=== PATIENT | male | born 1985 ===

== ENCOUNTER → 2020-02-19 08:42 | Outpatient (BNVA) | payer MEDICAID, SELFPAY | PROVIDERS: PCP Internal Medicine; Referring Provider Internal Medicine; Visit Provider Internal Medicine | DX: Z76.89 Persons encountering health services in other specified circumstances (principal) ==

== ENCOUNTER 2020-02-21 10:27 | Outpatient (REF) | payer MEDICAID, SELFPAY ==
[2020-02-21 13:40] LABS: Estimated Average Glucose 192 mg/dL; Hemoglobin A1c % 8.3 %
[2020-02-21 14:35] LABS: Alanine Aminotransferase 15 U/L (0-40); Albumin Level 4.3 g/dL (3.5-5.0); Alkaline Phosphatase 57 U/L (39-117); Anion Gap 11 (12-20); Aspartate Amino Transferase 10 U/L (5-37); Bilirubin Total 0.5 mg/dL (0.0-1.0); Blood Urea Nitrogen 21 mg/dL (9-16); Calcium 9.1 mg/dL (8.4-10.2); Carbon Dioxide 30 mmol/L (22-29); Chloride 103 mmol/L (96-108); Estimated Glomerular Filt Rate > 60; Glucose Random 186 mg/dL (60-115); Potassium 4.9 mmol/l (3.3-5.1); Sodium 139 mmol/L (135-145); Total Protein 6.7 g/dL (6.5-8.0)
== END 2020-02-21 10:28 | disposition home or self-care (01) ==
LOC: HO.10HDL 10:27
PROVIDERS: Visit Provider Internal Medicine
DX: E55.9 Vitamin D deficiency, unspecified (principal); E11.65 Type 2 diabetes mellitus with hyperglycemia; R79.89 Other specified abnormal findings of blood chemistry
CPT/HCPCS: 80053; 82306; 83036

== ENCOUNTER → 2020-07-18 13:06 | Outpatient (BNVA) | payer MEDICAID, SELFPAY | PROVIDERS: PCP Internal Medicine; Visit Provider Internal Medicine ==

== ENCOUNTER 2020-11-04 07:46 | Emergency (ER) | payer MEDICAID, SELFPAY ==
--- NOTE | ~2020-11-04 | XR_ITS ---
EXAMINATION: XR RIBS, RIGHT CLINICAL INFORMATION: Pain COMPARISON: None TECHNIQUE: 3 views of the right ribs and one view of the chest were obtained. FINDINGS: Lungs are clear. No consolidation, pneumothorax, or pleural effusion. The cardiomediastinal silhouette and pulmonary vasculature are normal. Osseous structures are unremarkable. Ribs are intact. No fractures are identified. XR/XR ribs RT min 3V w CXR1V IMPRESSION: Unremarkable examination.
[2020-11-04 07:52] VITALS: BP 120/67; PULSE 96; RESP 16; TEMP 36.5; O2SAT 100; BMI 33.9
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
[2020-11-04] MEDS: Cyclobenzaprine HCl 10 MG TABLET PO (08:47)
[2020-11-04] MEDS: Ibuprofen 600 MG TABLET PO (08:47)
[2020-11-04 08:55] LABS: COVID-19 Test Negative (Negative); IDNOW Serial# 08D9AD1C
[2020-11-04 09:27] VITALS: BP 122/67; PULSE 96; RESP 16; TEMP 36.5; O2SAT 100
== END 2020-11-04 09:28 | disposition home or self-care (01) ==
PROVIDERS: Emergency Provider Emergency Medicine; PCP Internal Medicine
DX: S50.312A Abrasion of left elbow, initial encounter (principal); S29.011A Strain of muscle and tendon of front wall of thorax, initial encounter; X50.1XXA Overexertion from prolonged static or awkward postures, initial encounter; I10 Essential (primary) hypertension; E11.9 Type 2 diabetes mellitus without complications; Z20.822 Contact with and (suspected) exposure to COVID-19; Y93.F9 Activity, other caregiving; Y92.9 Unspecified place or not applicable; Y99.9 Unspecified external cause status; Z79.4 Long term (current) use of insulin; Z79.899 Other long term (current) drug therapy
CPT/HCPCS: 36415; 71101; 87635; 99283; 99284

== ENCOUNTER 2020-12-26 15:05 | Emergency (ER) | payer OTHER, SELFPAY ==
--- NOTE | ~2020-12-26 | XR_ITS ---
EXAMINATION: XR SHOULDER, RIGHT CLINICAL INFORMATION: Pain status post trauma COMPARISON: None TECHNIQUE: Three views of the right shoulder. FINDINGS: There is no evidence of acute fracture or dislocation of the right shoulder. No evidence of calcific tendinitis. There is inferior acromial spur present. Glenohumeral joint unremarkable. XR/XR shoulder RT min 2V IMPRESSION: No significant bony abnormality of the right shoulder identified.
[2020-12-26 15:31] VITALS: BP 129/96; PULSE 100; RESP 18; TEMP 36.8; O2SAT 100; BMI 34.2
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
== END 2020-12-26 17:05 | disposition home or self-care (01) ==
PROVIDERS: Emergency Provider Emergency Medicine Emergency Medical Services; PCP Internal Medicine
DX: S46.911A Strain of unspecified muscle, fascia and tendon at shoulder and upper arm level, right arm, initial encounter (principal); V43.52XA Car driver injured in collision with other type car in traffic accident, initial encounter; M54.50 Low back pain, unspecified; Y93.9 Activity, unspecified; Y92.410 Unspecified street and highway as the place of occurrence of the external cause; Y99.9 Unspecified external cause status
CPT/HCPCS: 73030; 99283

== ENCOUNTER 2021-05-01 09:28 | Emergency (ER) | payer MEDICAID, SELFPAY ==
--- NOTE | ~2021-05-01 | XR_ITS ---
EXAMINATION: XR THORACIC SPINE CLINICAL INFORMATION: Fall COMPARISON: None TECHNIQUE: 3 views of the thoracic spine were obtained. FINDINGS: There is no fracture or bone destruction seen and the vertebral alignment is normal. There is no disc space narrowing. There is no abnormality of the paraspinal soft tissues. XR/XR thoracic spine 3V IMPRESSION: No fracture.
--- NOTE | ~2021-05-01 | XR_ITS ---
EXAMINATION: XR LUMBOSACRAL SPINE CLINICAL INFORMATION: Fall COMPARISON: None TECHNIQUE: Three views of the lumbosacral spine. FINDINGS: The vertebral bodies and posterior elements are normal. The disc spaces are preserved and the vertebral alignment is normal. The paraspinal soft tissues are normal. XR/XR lumbar spine 2-3V IMPRESSION: No fracture.
[2021-05-01 10:12] VITALS: BP 121/94; PULSE 104; RESP 18; TEMP 36.3; O2SAT 96; BMI 33.2
--- NOTE | 2021-05-01 11:08 | ED.FALL ---
HPI - Fall General Chief Complaint: Fall Stated Complaint: fall hit back of head Time Seen by Provider: 05/01/21 10:57 Source: patient Mode of arrival: ambulatory Limitations: no limitations History of Present Illness MD complaint: fall Onset (ago): hour(s) (830am today) Fall from: standing Fall witnessed: no Place fall occurred: home Loss of consciousness: none Prolonged down time: no Symptoms prior to fall: none Context: tripped/slipped (due to black ice) Location of injury: head (back of head) and back (tailbone) Severity: moderate Quality: aching Associated symptoms (after fall): other (low back pain) Related Data Home Medications Medication Instructions Recorded Confirmed atorvastatin 40 mg tablet 40 mg PO BEDTIME 02/19/20 07/18/20 insulin needles (disposable) 30 X #1 02/19/20 07/18/20 3/4 lancets 28 gauge (FreeStyle #100 ea 02/19/20 07/18/20 Lancets) lisinopril 10 mg tablet 10 mg PO DAILY 02/19/20 07/18/20 Previous Rx's Medication Instructions Recorded empagliflozin 25 mg tablet 25 mg PO DAILY 30 Days #30 tab 06/10/20 (Jardiance) blood-glucose meter (FreeStyle #1 ea 07/18/20 Lite Meter) semaglutide 1 mg/dose (4 mg/3 mL) 1 mg (0.75 mL) SUBCUT QWEEK 30 09/11/20 subcutaneous pen injector (Ozempic) Days #3.75 ml cyclobenzaprine 10 mg tablet 10 mg PO TID PRN #14 tab 11/04/20 lidocaine 4 % topical patch 1 patch TOPICAL DAILY PRN #10 ea 11/04/20 ibuprofen 600 mg tablet 600 mg PO TID PRN #30 tab 12/26/20 methocarbamol 750 mg tablet 750 mg PO Q8H PRN #14 tab 12/26/20 metformin 500 mg tablet,extended 1,000 mg PO BID #120 tab 01/27/21 release 24 hr atorvastatin 40 mg tablet 40 mg PO DAILY 30 Days #30 tab 02/12/21 pioglitazone 15 mg tablet 15 mg PO DAILY #90 tab 04/23/21 cyclobenzaprine 10 mg tablet 10 mg PO TID PRN #14 tab 05/01/21 ibuprofen 600 mg tablet 600 mg PO Q6H PRN #30 tab 05/01/21 lidocaine 4 % topical patch 1 patch TOPICAL DAILY PRN #10 ea 05/01/21 Allergies Allergy/AdvReac Type Severity Reaction Status Date / Time Proventil Allergy Unknown rash Uncoded 07/18/20 14:05 Review of Systems Review of Systems: Constitutional : No Weight loss, No Fever, No Chills, ENT/Mouth : No Hearing loss, No Ear Pain, No Nasal Congestion, No Sinus Pain, No Hoarseness, No sore throat, No Rhinorrhea, No Swallowing Difficulty Cardiovascular : No Chest Pain, No SOB Respiratory : No Cough, No Dyspnea Gastrointestinal : No Nausea, No Vomiting, No Diarrhea, No abdominal Pain, No Hematochezia, No Melena Genitourinary : No Dysuria, No Urinary Frequency, No Hematuria, No Urinary Incontinence, Musculoskeletal : positive back pain Skin : No Skin Lesions, No rash Neuro : No Weakness, No Numbness, No Paresthesias, no loss of bowel or bladder incontinence, no saddle anesthesia, pos headache PMFSH Past Medical History Attestation statement: The following information was validated with the patient. Medical History Diabetes type 2, uncontrolled HLD (hyperlipidemia) HTN (hypertension) T2DM (type 2 diabetes mellitus) Vitamin D deficiency Surgical History No pertinent past surgical history Family History Family History Father No problems noted. Mother Diabetes Social History Social History Alcohol intake: never Patient Tobacco Use Status: Never used Tobacco Use of substances other than those prescribed or required for medical reasons: No Advance Directives: No Advance Directives Information Provided: Yes Physical Exam Vital Signs: Vital Signs: Last Vital Signs Temp 97.4 F 05/01/21 10:12 Pulse 104 H 05/01/21 10:12 Resp 18 05/01/21 10:12 BP 121/94 H 05/01/21 10:12 Pulse Ox 96 05/01/21 10:12 BMI result Body Mass Index 33.2 Appearance: Alert. Oriented X3. No acute distress. Eyes: Pupils equal, round and reactive to light. ENT: Pharynx normal. small abrasion to posterior scalp but no crepitus no deformity no sig ttp no contusion Neck: Normal inspection. Neck supple. no midline ttp CVS: Normal heart rate and rhythm. Pulses normal. Respiratory: No respiratory distress. Breath sounds normal. Abdomen: Soft and nontender. Back: some ttp along paraspinals no step offs noted Skin: Skin warm and dry. Normal skin color. Normal skin turgor. Extremities: No lower extremity edema. No calf ttp Neuro: Oriented X 3. No motor deficit. No sensory deficit. MDM - Fall MDM Narrative Medical decision making narrative: 35 yo male with hx of HTN, HLD, DM had mechanical fall this AM hitting back of head but no LOC, GCS 15, pupils normal, no vomiting doubt ICH or concussion at this time. He is c/o low and mid back pain will obtain xrays - NV intact dispo per results and findings. Discharge Plan Discharge Clinical Impression: Strain of thoracic back region, Lumbar strain Patient Disposition: Home, Self-Care Instructions: Low Back Strain (ED), Thoracic Back Strain (ED) Additional Instructions: return to ED for any worsening symptoms or concerns xrays negative for acute fracture Prescriptions: New cyclobenzaprine 10 mg tablet 10 mg PO TID PRN (Reason: muscle spasm) Qty: 14 0RF lidocaine 4 % adhesive patch,medicated 1 patch topical DAILY PRN (Reason: pain) Qty: 10 0RF Rx Instructions: may leave on for up to 12 hrs ibuprofen 600 mg tablet 600 mg PO Q6H PRN (Reason: pain) Qty: 30 0RF No Action Jardiance 25 mg tablet 25 mg PO DAILY 30 Days Qty: 30 11RF Ozempic 1 mg/dose (4 mg/3 mL) pen injector 1 mg subcut QWEEK 30 Days Qty: 3.75 11RF metformin 500 mg tablet extended release 24 hr 1,000 mg PO BID Qty: 120 4RF atorvastatin 40 mg tablet 40 mg PO DAILY 30 Days Qty: 30 11RF pioglitazone 15 mg tablet 15 mg PO DAILY Qty: 90 1RF cyclobenzaprine 10 mg tablet 10 mg PO TID PRN (Reason: muscle spasm) Qty: 14 0RF lidocaine 4 % adhesive patch,medicated 1 patch topical DAILY PRN (Reason: pain) Qty: 10 0RF Rx Instructions: may leave on for up to 12 hrs methocarbamol 750 mg tablet 750 mg PO Q8H PRN (Reason: muscle spasm) Qty: 14 0RF ibuprofen 600 mg tablet 600 mg PO TID PRN (Reason: pain) Qty: 30 0RF lisinopril 10 mg tablet 10 mg PO DAILY 0RF atorvastatin 40 mg tablet 40 mg PO BEDTIME 0RF (DME) insulin needles (disposable) 30 X 3/4 needle See Rx Instructions .ROUTE .MEDSUPPLY Qty: 1 0RF Rx Instructions: As directed (DME) lancets [FreeStyle Lancets] 28 gauge misc See Rx Instructions .ROUTE .MEDSUPPLY Qty: 100 0RF Rx Instructions: As directed (DME) blood-glucose meter [FreeStyle Lite Meter] Kit See Rx Instructions .ROUTE .MEDSUPPLY Qty: 1 0RF Rx Instructions: As directed Referrals: Laina Byrne MD [Primary Care Provider] - 2 days (if not better) Stand Alone Forms: Work/School Release
--- NOTE | 2021-05-01 11:53 | PC.NURSE ---
a&o, no sob or chest pain. Pt seen by provider, pt taken to x-ray and medicated per mar for back pain.
[2021-05-01 12:00] VITALS: BP 132/95; RESP 16
[2021-05-01] MEDS: Cyclobenzaprine HCl 10 MG TABLET PO (12:04)
[2021-05-01] MEDS: Ibuprofen 600 MG TABLET PO (12:04)
== END 2021-05-01 13:17 | disposition home or self-care (01) ==
PROVIDERS: Emergency Provider Emergency Medicine; PCP Internal Medicine
DX: S39.012A Strain of muscle, fascia and tendon of lower back, initial encounter (principal); S29.012A Strain of muscle and tendon of back wall of thorax, initial encounter; W00.0XXA Fall on same level due to ice and snow, initial encounter; Y93.01 Activity, walking, marching and hiking; Y92.014 Private driveway to single-family (private) house as the place of occurrence of the external cause; Y99.9 Unspecified external cause status
CPT/HCPCS: 72072; 72100; 99283; 99284

== ENCOUNTER 2021-05-27 14:43 | Outpatient (REF) | payer MEDICAID, SELFPAY ==
[2021-05-27 16:11] LABS: Cholesterol 130 mg/dL; HDL Cholesterol 30 mg/dL; LDL Cholesterol Calculated 78 mg/dl; Triglycerides 110 mg/dL
[2021-05-29 07:47] LABS: LDL Cholesterol Direct 74 mg/dL (<100)
== END 2021-05-27 14:44 | disposition home or self-care (01) ==
LOC: HO.LAB 14:43
PROVIDERS: PCP Internal Medicine; Visit Provider Internal Medicine
DX: E11.65 Type 2 diabetes mellitus with hyperglycemia (principal)
CPT/HCPCS: 36415; 80061; 83721

== ENCOUNTER → 2021-05-28 08:04 | Outpatient (BNVA) | payer MEDICAID, SELFPAY | PROVIDERS: PCP Internal Medicine; Visit Provider Internal Medicine | DX: E78.5 Hyperlipidemia, unspecified (principal); E55.9 Vitamin D deficiency, unspecified; I10 Essential (primary) hypertension; Z79.4 Long term (current) use of insulin; Z79.84 Long term (current) use of oral hypoglycemic drugs | CPT/HCPCS: 82947; 83036; 99212 ==

== ENCOUNTER 2021-08-20 10:22 | Outpatient (REF) | payer MEDICAID, SELFPAY ==
[2021-08-20 14:13] LABS: Estimated Average Glucose 226 mg/dL; Hemoglobin A1c % 9.5 %
[2021-08-20 14:24] LABS: Alanine Aminotransferase 26 U/L (0-40); Albumin Level 3.9 g/dL (3.5-5.0); Alkaline Phosphatase 67 U/L (39-117); Anion Gap 14 (12-20); Aspartate Amino Transferase 12 U/L (5-37); Bilirubin Total 0.3 mg/dL (0.0-1.0); Blood Urea Nitrogen 25 mg/dL (9-16); Calcium 9.1 mg/dL (8.4-10.2); Carbon Dioxide 27 mmol/L (22-29); Chloride 104 mmol/L (96-108); Cholesterol 158 mg/dL; Estimated Glomerular Filt Rate > 60; Glucose Random 208 mg/dL (60-115); HDL Cholesterol 42 mg/dL; LDL Cholesterol Calculated 89 mg/dl; Potassium 4.6 mmol/L (3.3-5.1); Sodium 140 mmol/L (135-145); Total Protein 6.3 g/dL (6.5-8.0); Triglycerides 136 mg/dL
[2021-08-20 14:42] LABS: Creatinine Urine 52.44 mg/dL; Microalbum/Creatinine Ratio Ur 747.5 ug/mg cr
[2021-08-20 14:47] LABS: Vitamin D 25-OH Total 22.9 ng/mL (>30)
[2021-08-21 17:23] LABS: LDL Cholesterol Direct 83 mg/dL (<100)
== END 2021-08-20 10:23 | disposition home or self-care (01) ==
LOC: HO.10HDL 10:22
PROVIDERS: Visit Provider Internal Medicine
DX: E55.9 Vitamin D deficiency, unspecified (principal); E11.65 Type 2 diabetes mellitus with hyperglycemia
CPT/HCPCS: 36415; 80053; 80061; 82043; 82306; 83036; 83721

== ENCOUNTER → 2021-09-30 13:11 | Outpatient (BNVA) | payer MEDICAID, SELFPAY | PROVIDERS: PCP Internal Medicine; Visit Provider Registered Nurse Diabetes Educator | DX: E11.65 Type 2 diabetes mellitus with hyperglycemia (principal) | CPT/HCPCS: 99211 ==

== ENCOUNTER 2022-05-21 22:48 | Emergency (ER) | payer MEDICAID, SELFPAY ==
[2022-05-21 23:26] VITALS: BP 181/111; PULSE 94; RESP 18; TEMP 36.8; O2SAT 98; BMI 17.6
[2022-05-22 00:05] LABS: Hematocrit 35.4 % (42.0-52.0); Hemoglobin 12.1 g/dl (14.0-18.0); Mean Corpuscular HGB Conc 34.2 g/dl (31.0-36.0); Mean Platelet Volume 9.6 fL (9.4-12.4); Platelet Count 206 X10*3/uL (160-400); Red Blood Count 4.66 X10*6/uL (4.60-5.80); Red Cell Distribution Width 12.7 % (11.0-16.0); White Blood Count 10.1 X10*3/uL (4.8-10.8)
[2022-05-22 00:12] LABS: D Dimer High Sensitivity 180 NG/ML
[2022-05-22 00:30] LABS: Alanine Aminotransferase 45 U/L (0-40); Albumin Level 3.1 g/dL (3.5-5.0); Alkaline Phosphatase 64 U/L (39-117); Anion Gap 13 (12-20); Aspartate Amino Transferase 25 U/L (5-37); Bilirubin Total 0.5 mg/dL (0.0-1.0); Blood Urea Nitrogen 18 mg/dL (9-16); Calcium 8.6 mg/dL (8.4-10.2); Carbon Dioxide 26 mmol/L (22-29); Chloride 104 mmol/L (96-108); Creatinine Clr Calc Pharmacy 73.7; Estimated Glomerular Filt Rate > 60; Glucose Random 357 mg/dL (60-115); Sodium 139 mmol/L (135-145); Total Protein 5.2 g/dL (6.5-8.0)
--- NOTE | 2022-05-22 01:11 | ED.GENADULT ---
HPI - General Adult General Chief complaint: Extremity Injury, Lower Stated complaint: left lowered leg swollen Time Seen by Provider: 05/22/22 01:00 Source: patient Mode of arrival: ambulatory Limitations: no limitations History of Present Illness HPI narrative: 36-year-old male history of diabetes mellitus controlled with insulin came in for evaluation of possible left leg infection, patient did not take his night time Lantus insulin and found to have hyperglycemia. Patient was walking today felt some pain in the left leg notice some new onset rash and redness on the hollis of the left leg. No fever, no chills, no SOB, CP. No history DVT. Related Data Home Medications Medication Instructions Recorded Confirmed insulin needles (disposable) 30 X ##1 02/19/20 08/21/21 3/4 lancets 28 gauge (FreeStyle #100 ea 02/19/20 08/21/21 Lancets) lisinopril 10 mg tablet 10 mg PO DAILY 02/19/20 08/21/21 Previous Rx's Medication Instructions Recorded blood-glucose meter (FreeStyle #1 ea 07/18/20 Lite Meter kit) methocarbamol 750 mg tablet 750 mg PO Q8H PRN muscle spasm #14 12/26/20 tabs atorvastatin 40 mg tablet 40 mg PO DAILY 30 days #30 tabs 02/12/21 cyclobenzaprine 10 mg tablet 10 mg PO TID PRN muscle spasm #14 05/01/21 tabs ibuprofen 600 mg tablet 600 mg PO Q6H PRN pain #30 tabs 05/01/21 lidocaine 4 % topical patch 1 patch topical DAILY PRN pain #10 05/01/21 ea insulin glargine 100 unit/mL (3 10 unit (0.1 mL) subcut QPM 30 05/28/21 mL) subcutaneous pen (Lant #3 mL Solostar U-100 Insulin) pen needle, diabetic 32 gauge x #50 ea 05/28/2103/04 (BD Ultra-Fine Micro Pen Needle) empagliflozin 25 mg tablet 25 mg PO DAILY 30 days #30 tabs 08/18/21 (Jardiance) cholecalciferol (vitamin D3) 50 50 mcg PO DAILY 30 days #30 caps 09/17/21 mcg (2,000 unit) capsule pioglitazone 15 mg tablet 15 mg PO DAILY #90 tabs 11/10/21 dulaglutide 1.5 mg/0.5 mL 1.5 mg (0.5 mL) subcut QWEEK 30 02/16/22 subcutaneous pen injector days #2.5 mL (Trulicity) metformin 500 mg tablet,extended 1,000 mg PO BID 90 days #360 tabs 03/16/22 release 24 hr doxycycline hyclate 100 mg tablet 100 mg PO BID #14 tabs 05/22/22 Allergies Allergy/AdvReac Type Severity Reaction Status Date / Time Proventil Allergy Unknown rash Uncoded 08/21/21 08:15 Review of Systems Review of Systems: All other systems are reviewed and are negative Constitutional: Reports as per HPI and Reports no additional constitutional complaints Eyes: Reports as per HPI and Reports no additional eye complaints Reports system reviewed and no additional complaints, except as documented Cardiovascular: Reports as per HPI and Reports no additional cardiovascular complaints Respiratory: Reports as per HPI and Reports no additional respiratory complaints Gastrointestinal: Reports as per HPI and Reports no additional gastrointestinal complaints Genitourinary: Reports no additional female genitourinary complaints Musculoskeletal: Reports no additional musculoskeletal complaints Skin/Breast: Reports system reviewed and no additional complaints, except as docu Psychiatric: Reports no additional psychiatric complaints Endocrine: Reports no additional endocrine complaints Hematologic/Lymphatic: Reports no additional hematologic/lymphatic complaints Allergic/Immunologic: Reports no additional allergic/immunologic complaints Reports system reviewed and no additional complaints, except as documented and Reports Abnormal speech present [facility] Past Medical History Medical History Diabetes type 2, uncontrolled HLD (hyperlipidemia) HTN (hypertension) T2DM (type 2 diabetes mellitus) Vitamin D deficiency Surgical History Hx of circumcision Hx of shoulder surgery Family History Family History Father No problems noted. Mother Diabetes Social History Social History Alcohol intake: never Patient Tobacco Use Status: Never used Tobacco Physical Exam ED Vital Signs: Vital Signs - 24 hr 05/21/22 23:26 Temperature 98.3 F Pulse Rate 94 Respiratory Rate 18 Blood Pressure 181/111 H Pulse Oximetry 98 Oxygen Delivery Method Room Air BMI result Body Mass Index 17.6 Vital signs have been reviewed as appeared to be correct. Blood pressure normal. Heart rate normal. Respiration rate normal. Temperature normal. Oxygen saturation normal. Appearance: Alert. Oriented X3. No acute distress. Head: Normal external exam. Normocephalic. Atraumatic. No Perkins signs noted. No raccoon eyes noted Eyes: PERRLA. EOMI. Conjunctiva and sclera normal. Eyelids normal. ENT: TM's Normal. Pharynx normal. Uvula midline. Moist mucous membranes. No trismus noted. No drooling noted. No muffled voice noted. Neck: Normal inspection. Neck supple. FROM. No adenopathy. Thyroid Normal. No meningeal signs. No neck mass noted. CVS: Normal heart rate and rhythm. Heart sound normal. No murmurs noted. Pulses normal throughout. Respiratory: No respiratory distress. Painless inspiration. Breath sounds normal. No wheezes/rales/rhonchi noted. Chest nontender. No accessory muscle usage noted or decreased air movement noted. Abdomen: Soft and nontender. Bowel sounds normal in all 4 quadrants. No distention noted. No organomegaly noted. No visible injury noted. Back: No CVA tenderness. Full range of motion noted. Skin: Skin warm and dry. Normal skin color. Normal skin turgor. No rashes/lesions/lacerations noted. Extremities: Left hlolis small area red discoloration, no hotness, no tenderness, no calf tenderness. Neuro: Oriented X 3. Cranial nerve exam: II-XII are grossly intact No motor deficit. No sensory deficit. Reflexes normal. Course Course Course Narrative: 36-year-old male history of diabetes mellitus found to have hyperglycemia due to missing his afternoon dose of Lantus. BS was improved with IV fluid and 10 units of insulin IV. I will start the patient on empirical doxycycline for possible left lower extremity cellulitis. D-dimer is negative and patient at low risk for DVT/PE ultrasound is not available in this facility tonight patient was instructed to return tomorrow if the swelling or pain is getting worse. Medical Decision Making Differential Diagnosis Differential Diagnoses: The differential diagnosis associated with the presentation includes (Hyperglycemia, DKA, left lower extremity cellulitis, DVT.) Lab Data MDM Lab Attestation statement: I reviewed the patient's lab results. 05/22/22 00:00 05/22/22 00:00 Labs: Lab Results 05/22/22 05/22/22 05/22/22 Range/Units 00:00 00:00 00:00 WBC 10.1 (4.8-10.8) X10*3/uL RBC 4.66 (4.60-5.80) X10*6/uL Hgb 12.1 L (14.0-18.0) g/dl Hct 35.4 L (42.0-52.0) % MCV 76.0 L (80.0-98.0) fL MCH 26.0 L (27.0-33.0) pg MCHC 34.2 (31.0-36.0) g/dl RDW 12.7 (11.0-16.0) % Plt Count 206 (160-400) X10*3/uL MPV 9.6 (9.4-12.4) fL Absolute Nucleated RBC 0.000 (0.0-0.012) X10*3/uL Nucleated RBC % (auto) 0.0 (0.0-0.2) /100WBC D-Dimer High Sensitivty 180 NG/ML Sodium 139 (135-145) mmol/L Potassium 4.0 (3.3-5.1) mmol/L Chloride 104 (96-108) mmol/L Carbon Dioxide 26 (22-29) mmol/L Anion Gap 13 (12-20) BUN 18 H (9-16) mg/dL Creatinine 1.17 (0.5-1.4) mg/dL Estim Creat Clear Calc 73.7 Estimated GFR > 60 Random Glucose 357 H* (60-115) mg/dL Calcium 8.6 (8.4-10.2) mg/dL Total Bilirubin 0.5 (0.0-1.0) mg/dL AST 25 (5-37) U/L ALT 45 H (0-40) U/L Alkaline Phosphatase 64 (39-117) U/L Total Protein 5.2 L (6.5-8.0) g/dL Albumin 3.1 L (3.5-5.0) g/dL Discharge Plan Discharge Clinical Impression: Hyperglycemia due to diabetes mellitus, Cellulitis of left leg Patient Disposition: Home, Self-Care Instructions: Cellulitis (ED) Prescriptions: New doxycycline hyclate 100 mg tablet 100 mg PO BID Qty: 14 0RF No Action atorvastatin 40 mg tablet 40 mg PO DAILY 30 Days Qty: 30 11RF Jardiance 25 mg tablet 25 mg PO DAILY 30 Days Qty: 30 11RF cholecalciferol (vitamin D3) 50 mcg (2,000 unit) capsule 50 mcg PO DAILY 30 Days Qty: 30 11RF pioglitazone 15 mg tablet 15 mg PO DAILY Qty: 90 6RF Trulicity 1.5 mg/0.5 mL pen injector 1.5 mg subcut QWEEK 30 Days Qty: 2.5 11RF metformin 500 mg tablet extended release 24 hr 1,000 mg PO BID 90 Days Qty: 360 1RF cyclobenzaprine 10 mg tablet 10 mg PO TID PRN (Reason: muscle spasm) Qty: 14 0RF lidocaine 4 % adhesive patch,medicated 1 patch topical DAILY PRN (Reason: pain) Qty: 10 0RF Rx Instructions: may leave on for up to 12 hrs ibuprofen 600 mg tablet 600 mg PO Q6H PRN (Reason: pain) Qty: 30 0RF methocarbamol 750 mg tablet 750 mg PO Q8H PRN (Reason: muscle spasm) Qty: 14 0RF Lantus Solostar U-100 Insulin 100 unit/mL (3 mL) insulin pen 10 unit subcut QPM 30 Days Qty: 3 11RF (DME) pen needle, diabetic [BD Ultra-Fine Micro Pen Needle] 32 gauge x 1/4 needle See Rx Instructions .ROUTE .MEDSUPPLY Qty: 50 11RF Rx Instructions: 1x daily lisinopril 10 mg tablet 10 mg PO DAILY (DME) insulin needles (disposable) 30 X 3/4 needle See Rx Instructions .ROUTE .MEDSUPPLY Qty: 1 Rx Instructions: As directed (DME) lancets [FreeStyle Lancets] 28 gauge misc See Rx Instructions .ROUTE .MEDSUPPLY Qty: 100 Rx Instructions: As directed (DME) blood-glucose meter [FreeStyle Lite Meter] Kit See Rx Instructions .ROUTE .MEDSUPPLY Qty: 1 0RF Rx Instructions: As directed Referrals: Laina Byrne MD [Primary Care Provider] -
[2022-05-22] MEDS: Doxycycline Monohydrate 100 MG CAPSULE PO (01:24)
[2022-05-22] MEDS: 0.9 % Sodium Chloride 1,000 ML 999 ML IV (01:24)
[2022-05-22] MEDS: Insulin Regular, Human 100 UNIT/ML 3 ML VIAL 10 UNIT IVPUSH (01:24)
[2022-05-22 01:48] LABS: Glucose, Whole Blood 197 mg/dL (60-115)
[2022-05-22 02:19] VITALS: BP 167/112; PULSE 85; RESP 17; TEMP 36.6; O2SAT 98
[2022-05-22 02:28] LABS: Glucose, Whole Blood 145 mg/dL (60-115)
[2022-05-22] MEDS: lisinopriL 20 MG TABLET PO (02:38)
[2022-05-22] MEDS: cloNIDine HCL 0.1 MG TABLET PO (02:38)
[2022-05-22 03:00] VITALS: BP 164/102
== END 2022-05-22 03:02 | disposition home or self-care (01) ==
PROVIDERS: Emergency Provider Emergency Medicine; PCP Internal Medicine
DX: E11.65 Type 2 diabetes mellitus with hyperglycemia (principal); L03.116 Cellulitis of left lower limb; R60.0 Localized edema; I10 Essential (primary) hypertension; Z79.4 Long term (current) use of insulin; Z79.899 Other long term (current) drug therapy
CPT/HCPCS: 36415; 80053; 82947; 85027; 85379; 96374; 99283; 99284

== ENCOUNTER → 2022-06-08 09:54 | Outpatient (BNVA) | payer OTHER, SELFPAY | PROVIDERS: PCP Internal Medicine; Visit Provider Internal Medicine | DX: E11.65 Type 2 diabetes mellitus with hyperglycemia (principal); E78.5 Hyperlipidemia, unspecified; E66.9 Obesity, unspecified; I10 Essential (primary) hypertension; R80.9 Proteinuria, unspecified; Z68.38 Body mass index [BMI] 38.0-38.9, adult | CPT/HCPCS: 82947; 83036; 99212 ==

== ENCOUNTER 2022-06-08 11:03 | Outpatient (REF) | payer OTHER, SELFPAY ==
[2022-06-08 14:12] LABS: Alanine Aminotransferase 45 U/L (0-40); Albumin Level 3.2 g/dL (3.5-5.0); Alkaline Phosphatase 63 U/L (39-117); Anion Gap 11 (12-20); Aspartate Amino Transferase 28 U/L (5-37); Bilirubin Total 0.5 mg/dL (0.0-1.0); Blood Urea Nitrogen 19 mg/dL (9-16); Calcium 8.3 mg/dL (8.4-10.2); Carbon Dioxide 28 mmol/L (22-29); Chloride 106 mmol/L (96-108); Cholesterol 145 mg/dL; Estimated Glomerular Filt Rate > 60; Glucose Random 202 mg/dL (60-115); HDL Cholesterol 37 mg/dL; LDL Cholesterol Calculated 91 mg/dl; Potassium 4.3 mmol/L (3.3-5.1); Sodium 141 mmol/L (135-145); Total Protein 5.2 g/dL (6.5-8.0); Triglycerides 86 mg/dL
[2022-06-08 14:35] LABS: Vitamin B12 410 pg/mL (200-900)
[2022-06-08 14:38] LABS: Creatinine Urine 43.11 mg/dL; Microalbumin Urine > 2000.0 mg/L
[2022-06-09 20:14] LABS: LDL Cholesterol Direct 85 mg/dL (<100)
== END 2022-06-08 11:04 | disposition home or self-care (01) ==
LOC: HO.10HDL 11:03
PROVIDERS: Visit Provider Internal Medicine
DX: E11.65 Type 2 diabetes mellitus with hyperglycemia (principal)
CPT/HCPCS: 36415; 80053; 80061; 82043; 82607; 83721

== ENCOUNTER 2022-09-28 07:47 | Outpatient (AMB) | payer OTHER, SELFPAY ==
--- NOTE | 2022-09-28 07:47 | A.OFFVIS_ITS ---
Intake Intake Visit Reasons: F/U T2DM, needs 40 min Allergies Proventil Allergy (Unknown, Uncoded 09/28/22 08:02) rash Medication List - Last Reconciled 09/28/22 by Constance Barnes, atorvastatin 40 mg PO DAILY 30 days blood-glucose meter (FreeStyle Lite Meter kit) As directed blood-glucose meter (FreeStyle Lite Meter kit) As directed cholecalciferol (vitamin D3) 50 mcg PO DAILY 30 days cyclobenzaprine 10 mg PO TID PRN empagliflozin (Jardiance) 25 mg PO DAILY 30 days ibuprofen 600 mg PO Q6H PRN insulin degludec (Tresiba FlexTouch U-100 insulin) 18 units (0.18 mL) subcut BEDTIME 30 days insulin needles (disposable) As directed lancets (FreeStyle Lancets) As directed lidocaine 4% 1 patch topical DAILY PRN lisinopril 40 mg PO DAILY 30 days metformin ER 1,000 mg (2 x 500 mg) PO BID 90 days methocarbamol 750 mg PO Q8H PRN pen needle, diabetic (BD Ultra-Fine Micro Pen Needle) 1x daily pioglitazone 15 mg PO DAILY semaglutide (Ozempic) 2 mg (0.75 mL) subcut QWEEK 30 days HPI HPI Comments History of Present Illness Details 37 YO M with PMHx T2DM, HTN, HLD who is seen in F/U for T2DM. Initially diagnosed with T2DM in 2009 during a routine physical exam. Was initially started on treatment with Metformin, began using Insulin approximately 1 year later. Current regimen Metformin 1000 mg PO BID, Ozempic 2.0 mg once a week, Jardiance 25 mg PO daily, Actos 15 mg PO daily and Lantus 18 units qHS. He previously had failed treatment with Glipizide 10 mg PO BID, and after his initial visit with me we stopped his Humalog. Not currently checking sugars. He also did not do labs after his last visit. Most recent A1C: 11.0% 06/08/2022, up from 9.5% 08/20/2021. Reports low sugars occasionally in the distant past, many years ago. Had awareness with lightheadedness, shakiness and diaphoresis. Treats lows with food. Family history of T2DM in Mother and Sister. Has eyes checked yearly, last eye exam 01/2023 per Patient report, does report retinopathy. Has Neuropathy, sees podiatry regularly. Has Charcot foot with fractures. Has Nephropathy, on Lisinopril 20 mg PO daily. UAC 5224.5 05/25/2022. Has HLD. On Atorvastatin 40 mg PO daily. LDL 89 08/20/2021. Denies CAD. Diet: Not following any particular diet. Admits to dietary indiscretions. Has had CDE. Labs: Laboratory Tests 06/08/22 10:18 Hgb A1c (Clinic) 11.0 H PFS Medical History Diabetes type 2, uncontrolled HLD (hyperlipidemia) HTN (hypertension) Microalbuminuria Obesity T2DM (type 2 diabetes mellitus) Vitamin D deficiency Surgical History Hx of circumcision Hx of eye surgery Hx of shoulder surgery Family History Father No problems noted. Mother Diabetes Social History Alcohol intake: never Patient Tobacco Use Status: Never used Tobacco Assessment & Plan Assessment & Plan (1) T2DM (type 2 diabetes mellitus): Code(s): E11.9 - Type 2 diabetes mellitus without complications Qualifiers: Diabetes mellitus care home insulin use: without superintendent terminal use Diabetes mellitus complication status: with hyperglycemia Qualified Code(s): E11.65 - Type 2 diabetes mellitus with hyperglycemia Plan: Patient with T2DM. He has not been checking his sugars at all. I advised him to do labs now, check sugars 3x per day and bring his meter for review. I will call with adjustments. We did review the importance of compliance with his medications, as I do highly suspect noncompliance. He will also F/U with our CDE and discuss CGM. He will then F/U in 3 months time. All of his questions were answered today. He is in agreement with this plan of care. The importance of adherence to prescribed regimen was discussed with the patient including checking finger sticks 3-4 times per day, using medication as prescribed, monitoring for hypoglycemia and treating any episode of hypoglycemia according to the rule of 15's. The signs and symptoms of hypoglycemia were reviewed in detail, as well as the rule of 15's to treat. Proper foot care was also discussed with the patient, and the importance of yearly dilated eye exam. The patient was asked to have copy of eye exam sent to our office for review. I spent 20 minutes in reviewing the record, seeing the patient and documenting in the medical record, including 5 minutes on the phone with the Patient. (2) HLD (hyperlipidemia): Code(s): E78.5 - Hyperlipidemia, unspecified Qualifiers: Hyperlipidemia type: unspecified Qualified Code(s): E78.5 - Hy perlipidemia, unspecified Plan: Remains on Atorvastatin 40 mg PO daily. Will continue. (3) HTN (hypertension): Code(s): I10 - Essential (primary) hypertension Qualifiers: Hypertension type: unspecified Qualified Code(s): I10 - Essential (primary) hypertension Plan: Following with nephrology. (4) Obesity: Code(s): E66.9 - Obesity, unspecified Plan: Now on Ozempic. He was also referred to the medical weight management program. (5) Microalbuminuria: Code(s): R80.9 - Proteinuria, unspecified Plan: Following with Nephrology. Telehealth Telehealth Location of provider rendering services: practice address Location of patient: address on file Patient Identification confirmed using: Name, : Yes Telehealth method: voice only Patient verbally consented to treatment: Yes Patient verbally consented to billing insurance company: Yes Patient informed of any privacy concerns related to visit: Yes Coding Level of Care Code Tele Est Pt Level 3 (47106) Diagnoses T2DM (type 2 diabetes mellitus) E11.65 Diabetes mellitus superintendent terminal insulin use: without care home use Diabetes mellitus complication status: with hyperglycemia HLD (hyperlipidemia) E78.5 Hyperlipidemia type: unspecified HTN (hypertension) I10 Hypertension type: unspecified Obesity E66.9 Microalbuminuria R80.9
== END 2022-09-28 08:24 | disposition home or self-care (01) ==
LOC: HO.ENCR 07:47
PROVIDERS: PCP Internal Medicine; Visit Provider Internal Medicine
DX: E11.65 Type 2 diabetes mellitus with hyperglycemia (principal); E78.5 Hyperlipidemia, unspecified; I10 Essential (primary) hypertension; E66.9 Obesity, unspecified; R80.9 Proteinuria, unspecified
CPT/HCPCS: 99213

== ENCOUNTER → 2022-09-28 07:47 | Outpatient (BNVA) | payer OTHER, SELFPAY | PROVIDERS: PCP Internal Medicine; Visit Provider Internal Medicine ==

== ENCOUNTER 2023-06-04 10:07 | Outpatient (REF) | payer OTHER, SELFPAY ==
[2023-06-04 12:50] LABS: Anion Gap 11 (12-20); Blood Urea Nitrogen 26 mg/dL (9-16); Calcium 8.5 mg/dL (8.4-10.2); Carbon Dioxide 28 mmol/L (22-29); Chloride 109 mmol/L (96-108); Cholesterol 150 mg/dL (<200); Estimated Glomerular Filt Rate > 60; Glucose Random 127 mg/dL (60-115); HDL Cholesterol 35 mg/dL (>40); LDL Cholesterol Calculated 97 mg/dL (<100); Potassium 4.1 mmol/L (3.3-5.1); Sodium 144 mmol/L (135-145); Triglycerides 93 mg/dL (<150)
[2023-06-04 13:25] LABS: Microalbumin Urine > 2000.0 mg/L
== END 2023-06-04 10:08 | disposition home or self-care (01) ==
LOC: HO.LAB 10:07
PROVIDERS: PCP Internal Medicine; Visit Provider Internal Medicine Endocrinology, Diabetes & Metabolism
DX: E11.65 Type 2 diabetes mellitus with hyperglycemia (principal)
CPT/HCPCS: 36415; 80048; 80061; 82043; 82570

== ENCOUNTER 2023-08-30 14:42 | Outpatient (AMB) | payer OTHER, SELFPAY ==
[2023-08-30 14:43] VITALS: BP 130/70; PULSE 95; BMI 39.1
--- NOTE | 2023-08-30 14:43 | MHC.OFFVIS ---
Vital Signs 08/30/23 14:43 Height 6 ft Weight 288 lb 2.307 oz BMI 39.1 BP 130/70 Blood Pressure Location Lt brachial Position Sitting Pulse 95 Pulse Source Pulse Oximeter Intake Visit Reasons: [id number] Intake Note: Patient present today to follow up on Type 2 Diabetes Mellitus. Last seen by Dr. Carmona on 09/28/2022. Last Diabetic Eye exam: 2022 Last Podiatry Visit: June 2023 Random Glucose: 289 mg/dl HgA1C: 10.3% Meter Reading Clerk Required: No Accompanied by: Self / Same As Patient Allergies Proventil Allergy (Unknown, Uncoded 08/30/23 14:51) rash Medication List - Last Reconciled 08/30/23 by Madan Pimentel MD amlodipine 10 mg PO DAILY atorvastatin 40 mg PO DAILY 30 days blood-glucose meter (FreeStyle Lite Meter kit) As directed blood-glucose meter (FreeStyle Lite Meter kit) As directed cholecalciferol (vitamin D3) (Vitamin D3) 50 mcg PO DAILY cyclobenzaprine 10 mg PO TID PRN empagliflozin (Jardiance) 25 mg PO DAILY 30 days ibuprofen 600 mg PO Q6H PRN insulin degludec (Tresiba FlexTouch U-100 insulin) 18 units (0.18 mL) subcut BEDTIME 30 days insulin needles (disposable) As directed lancets (FreeStyle Lancets) As directed lidocaine 4% 1 patch topical DAILY PRN lisinopril 40 mg PO DAILY 30 days metformin ER 1,000 mg (2 x 500 mg) PO BID 90 days methocarbamol 750 mg PO Q8H PRN pen needle, diabetic (BD Ultra-Fine Micro Pen Needle) 1x daily pioglitazone 15 mg PO DAILY semaglutide (Ozempic) 2 mg (0.75 mL) subcut QWEEK HPI Comments Details: 38 YO M with PMHx T2DM, HTN, HLD who is seen in F/U for T2DM. Patient last saw Dr. Carmona on 09/28/2022 Initially diagnosed with T2DM in 2009 during a routine physical exam. Was initially started on treatment with Metformin, began using Insulin approximately 1 year later. Current regimen Metformin 1000 mg PO BID, Ozempic 2.0 mg once a week, Jardiance 25 mg PO daily, Actos 15 mg PO daily and Tresiba 26 units qHS. He previously had failed treatment with Glipizide 10 mg PO BID, and after his initial visit with me we stopped his Humalog. Not currently checking sugars. Did not bring any glucometer or sensor or log book to follow-up visit He also did not do labs after his last visit. Reports no low sugars . Treats lows with food. Family history of T2DM in Mother and Sister. Has eyes checked yearly, last eye exam last yr . Needs to make appt per Patient report, does report retinopathy. Has Neuropathy, sees podiatry regularly. Has Charcot foot with fractures. Has Nephropathy, on Lisinopril 20 mg PO daily. Has HLD. On Atorvastatin 40 mg PO daily. Denies CAD. Diet: Not following any particular diet. Admits to dietary indiscretions. Has had CDE. Labs: Laboratory Tests 06/08/22 10:18 Hgb A1c (Clinic) 11.0 H PFSH Medical History Diabetes type 2, uncontrolled HLD (hyperlipidemia) HTN (hypertension) Microalbuminuria Obesity T2DM (type 2 diabetes mellitus) Vitamin D deficiency Surgical History Hx of circumcision Hx of eye surgery Hx of shoulder surgery Family History Father No problems noted. Mother Diabetes Social History Alcohol intake: never Patient Tobacco Use Status: Never used Tobacco Physical Exam Vital Signs: Last Vital Signs Pulse 95 08/30/23 14:43 BP 130/70 08/30/23 14:43 BMI result Body Mass Index 39.1 Absence of Cushingoid features. Absence of acromegalic features. Neck exam reveals nl size thyroid about 15 gms. No thyroid nodules palpable. No carotid bruits present. Lungs CTA. Heart S1 S2, Reg R/R. No M/R/ G. Skin exam reveals absence of vitiligo or acanthosis nigricans. Abdominal exam reveals Soft NT/ND with NA BS. No organomegaly present. Neck Other: . Extrem Other: Visual exam of foot performed. No ulcerations or open lesions. No onchomycosis, no callouses.Pulses 2 + distally Sensation intact decreased monofilament exam. Vibratory sensation sensed is decreased with 128 Hz tuning fork Results AMB Hemoglobin A1c AMB Hemoglobin A1c 10.3 % Last Edit by [employer] on 08/30/23 15:22 Results Reviewed Results Reviewed: Laboratory Last Values Glucose (Clinic) 289 mg/dL (60-115) H 08/30/23 14:56 Assessment & Plan Assessment & Plan (1) Diabetes type 2, uncontrolled: Code(s): E11.65 - Type 2 diabetes mellitus with hyperglycemia Category: Medical Plan: This is a 38-year-old male with a history of type 2 diabetes being treated with metformin ,Actos, Ozempic and basal insulin with poor glycemic control and known microvascular complications namely neuropathy/ Charcot and microalbuminuria and retinopathy. Plan is that the patient check his point cares pre and post meals or to start sensor should as Viky or Dexcom. I gave him a Viky 3 sample and will try to obtain coverage. Can not make any changes to the regimen today because of lack of data. Will have patient follow up with supervisor tank cleaning. Went over with patient correlation of poor glycemic control to development of progression of complications of diabetes Orders: Orders AMB Hemoglobin A1c Today E11.65 - Type 2 diabetes mellitus with hyperglycemia, Z13.9 - Encounter for screening, unspecified Referrals Diabetes Education Referral E11.65 - Type 2 diabetes mellitus with hyperglycemia Nutrition/Dietitian Referral E11.65 - Type 2 diabetes mellitus with hyperglycemia Medications: New tirzepatide (Mounjaro) 2.5 mg (0.5 mL) subcut QWEEK 4 weeks 2 mL 0RF Discontinued semaglutide (Ozempic) Discontinued Reason: Doctor's Order 2 mg (0.75 mL) subcut QWEEK 3 mL 2RF E11.65 - Type 2 diabetes mellitus with hyperglycemia Coding Level of Care Code Est Pt Level 4 (38841) Diagnoses Diabetes type 2, uncontrolled E11.65
[2023-08-30 14:59] LABS: Glucose, Whole Blood 289 mg/dL (60-115)
== END 2023-08-30 15:25 | disposition home or self-care (01) ==
PROVIDERS: PCP Internal Medicine; Visit Provider Internal Medicine Endocrinology, Diabetes & Metabolism
DX: Z13.9 Encounter for screening, unspecified (principal); E11.65 Type 2 diabetes mellitus with hyperglycemia
CPT/HCPCS: 99214

== ENCOUNTER → 2023-08-30 14:42 | Outpatient (BNVA) | payer OTHER, SELFPAY | PROVIDERS: PCP Internal Medicine; Visit Provider Internal Medicine Endocrinology, Diabetes & Metabolism | DX: E11.65 Type 2 diabetes mellitus with hyperglycemia (principal); Z79.4 Long term (current) use of insulin; Z79.85 Long-term (current) use of injectable non-insulin antidiabetic drugs | CPT/HCPCS: 82947; 83036; 99212 ==

== ENCOUNTER 2023-09-13 13:27 | Outpatient (AMB) | payer OTHER, SELFPAY ==
[2023-09-13 13:33] VITALS: BMI 39.3
--- NOTE | 2023-09-13 13:33 | MHC.AMNUTRGE ---
VS Expanded 09/13/23 13:33 09/16/23 10:45 Height 6 ft 6 ft Weight 290 lb 2.053 oz 290 lb BMI 39.3 39.3 Intake Visit Reasons: T2DM/CONFIRMED Allergies Proventil Allergy (Unknown, Uncoded 08/30/23 14:51) rash Nutrition Presentation Details: Pt present for MNT for T2DM. Pt was referred by Dr. Pimentel, emergency vehicle operations instructor. BS Monitoring Most Recent Diabetes Results: Microalb/Creat Ratio 4338.3 ug/mg cr (<30) H 06/04/23 Cholesterol 150 mg/dL (<200) 06/04/23 HDL Cholesterol 35 mg/dL (>40) L 06/04/23 Triglycerides 93 mg/dL (<150) 06/04/23 Creatinine 1.32 mg/dL (0.5-1.4) 06/04/23 Blood Urea Nitrogen 26 mg/dL (9-16) H 06/04/23 Sodium 144 mmol/L (135-145) 06/04/23 Potassium 4.1 mmol/L (3.3-5.1) 06/04/23 Chloride 109 mmol/L (96-108) H 06/04/23 Carbon Dioxide 28 mmol/L (22-29) 06/04/23 Calcium 8.5 mg/dL (8.4-10.2) 06/04/23 AST 28 U/L (5-37) 06/08/22 ALT 45 U/L (0-40) H 06/08/22 Total Protein 5.2 g/dL (6.5-8.0) L 06/08/22 Albumin 3.2 g/dL (3.5-5.0) L 06/08/22 [id number] Equation Height: 6 ft Weight: 290 lb Resting Metabolic Rate: 2280.06 Calculated Activity Level: Mild Activity Calories Needed to Maintain Weight: 3135.08 Diagnosis Nutrition problem #1: food nutri know defi As related to (etiology) #1: diagnosis As evidenced by (sign/symptom) #1: knowledge deficit of diet [facility] Medical History Diabetes type 2, uncontrolled HLD (hyperlipidemia) HTN (hypertension) Microalbuminuria Obesity T2DM (type 2 diabetes mellitus) Vitamin D deficiency Surgical History Hx of circumcision Hx of eye surgery Hx of shoulder surgery Family History Father No problems noted. Mother Diabetes Social History Alcohol intake: never Patient Tobacco Use Status: Never used Tobacco Assessment & Plan Assessment & Plan (1) Diabetes type 2, uncontrolled: Code(s): E11.65 - Type 2 diabetes mellitus with hyperglycemia Category: Medical Plan: Wt: 132 Kg ( 08/2023 ) Est kcal needs as per MSJ: 3100 (40% carb, 30% protein/fat) Est fluid needs as per 25-30 ml/d: 4000 Est prot per day as per 1 g/kg bw: 132 Recommend fiber intake : 8-10 g per day and gradually increase to 25-28 g per day for women and 35-38 g for men or as tolerated Recommend sodium intake per day : less than 1500 mg less than 2000 mg Educated patient on: ( R = reviewed V = verbalizes understanding N/R = needs review N/A = not applicable Food sources of carbohydrate, adequate serving sizes and its role in various health conditions: R Differences between complex carbohydrates a simple carbohydrates, role of fiber in diet: R V N/R Lean protein sources of foods: R V NR Differences between types of fats and role in diet (mono on saturated fat fatty acids, saturated fatty acids, trans fats): R V N/R Food sources of sodium in salt and healthy modifications for heart health in kidney health: R V R/V Vitamins and minerals: R V N/R Healthy plate method concept: R Physical activity: Benefits a precaution: R V N/R Hypoglycemia protocol (rule of 15): R V N/R Dietary prevention of Hyperglycemia: R Patient Instructions: Work on having 3 balanced meals per day following healthy plate method and reducing total carb at meal to 100 g or less of carbs, per meal 3x a day Reduce carbs as snack to 0-30 g carb 2 a day Coding Level of Care Code Nutr Indiv Intake (46020) Diagnoses Diabetes type 2, uncontrolled E11.65 Time Spent (min) 30
[2023-09-16 10:45] VITALS: BMI 39.3
== END 2023-09-13 14:19 | disposition home or self-care (01) ==
PROVIDERS: PCP Internal Medicine; Visit Provider Dietitian, Registered
DX: E11.65 Type 2 diabetes mellitus with hyperglycemia (principal)

== ENCOUNTER → 2023-09-13 13:27 | Outpatient (BNVA) | payer OTHER, SELFPAY | PROVIDERS: PCP Internal Medicine; Visit Provider Dietitian, Registered | DX: E11.65 Type 2 diabetes mellitus with hyperglycemia (principal) | CPT/HCPCS: 97802 ==

== ENCOUNTER 2023-10-04 09:11 | Outpatient (AMB) | payer OTHER, SELFPAY ==
--- NOTE | 2023-10-04 09:38 | A.OFFVIS_ITS ---
Intake Intake Visit Reasons: Type 2 DM/confirmed Ortho Rn Required: No Accompanied by: Self / Same As Patient Allergies Proventil Allergy (Unknown, Uncoded 08/30/23 14:51) rash HPI Comprehensive Diabetes Asmnt Most Recent Diabetes Results: Hemoglobin A1c 10.0 % 10/17/19 Microalb/Creat Ratio 4338.3 ug/mg cr (<30) H 06/04/23 Cholesterol 150 mg/dL (<200) 06/04/23 HDL Cholesterol 35 mg/dL (>40) L 06/04/23 Triglycerides 93 mg/dL (<150) 06/04/23 Creatinine 1.32 mg/dL (0.5-1.4) 06/04/23 Blood Urea Nitrogen 26 mg/dL (9-16) H 06/04/23 Sodium 144 mmol/L (135-145) 06/04/23 Potassium 4.1 mmol/L (3.3-5.1) 06/04/23 Chloride 109 mmol/L (96-108) H 06/04/23 Carbon Dioxide 28 mmol/L (22-29) 06/04/23 Calcium 8.5 mg/dL (8.4-10.2) 06/04/23 AST 28 U/L (5-37) 06/08/22 ALT 45 U/L (0-40) H 06/08/22 Total Protein 5.2 g/dL (6.5-8.0) L 06/08/22 Albumin 3.2 g/dL (3.5-5.0) L 06/08/22 PFSH Medical History Diabetes type 2, uncontrolled HLD (hyperlipidemia) HTN (hypertension) Microalbuminuria Obesity T2DM (type 2 diabetes mellitus) Vitamin D deficiency Surgical History Hx of circumcision Hx of eye surgery Hx of shoulder surgery Family History Father No problems noted. Mother Diabetes Social History Alcohol intake: never Patient Tobacco Use Status: Never used Tobacco Assessment & Plan Assessment & Plan (1) Diabetes type 2, uncontrolled: Code(s): E11.65 - Type 2 diabetes mellitus with hyperglycemia Plan: Learning objectives: The patient was provided with verbal and written education on the following topics as outlined below. Patient questions/concerns patient's last A1c 10.1% on 08/30/2023, since visit with Dr. Pimentel patient has started Mounjaro 2.5 mg, denies any GI side effects. Patient did not bring meter to today's visit. 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 Patient requested prescription for Mounjaro 5 mg weekly come message sent to Dr. Pimentel Patient is also on Jardiance 25 mg daily Tresiba 26 units, daily Metformin ER 1000 mg b.i.d. Pioglitazone 15 mg daily Patient denies missing medication, and also denies hypoglycemia Reviewed with patient change in diabetes medication doses and increase physical activity can lead to lower glucose level. Recommended to patient if he does see an increase in hypoglycemia to contact nurse informatics educator or provider The patient met all learning objectives and was able to verbalize understanding and provide teach back of education topics discussed . The patient was provided with the opportunity to ask questions and all questions were answered. Topics covered in today?s session included: Medications (If applicable) * Name of medication? * Dosing/administration instructions? * Mechanism of action? * Potential side effects? * Potential adverse reaction and appropriate treatment? * Review onset, peak, duration Assess for concerns re: insurance coverage, cost, barriers to compliance Insulin/Injectables (If applicable) * Storage/care of insulin?? * Injection sites? * Site rotation? * Onset, peak, duration * Drawing up insulin? * Injecting insulin/other injectables? * Sharps disposal Continuous blood glucose monitoring (if applicable) Hypoglycemia and Hyperglycemia * Signs and symptoms? * Causes?? * Treatment? * Preventing hypoglycemia? * When to seek medical attention * Blood glucose targets and how you feel when your blood glucose is in and out of your target ranges. * Monitoring and knowing your A1C. * What can make blood glucose go up and down and preventing high and low blood glucose. * Review of blood sugar targets in expected goal range and outside of expected goal range. * Problem solving and preventing hyper/hypoglycemia. * Sick day management of diabetes. * Using blood sugar results in decision making process in managing diabetes. ?Patient was receptive to information provided and participated in the discussion. Asked?appropriate questions and demonstrated good understanding of the topics discussed.? ? Educational Materials: The patient was provided with the following written educational materials: Target Goal, Rule of 15s handout Patient Response to instructions: Comprehension of Instructions: Fair Readiness to make changes:? Contemplation How confident they feel about making changes: Fair Portions of this note were created using voice recognition software, please excuse any words or phrases that may have been misinterpreted. Medications: Discontinued tirzepatide (Mounjaro) Discontinued Reason: Doctor's Order 2.5 mg (0.5 mL) subcut QWEEK 4 mL 2RF Patient Instructions: DIABETES PROBLEMS HOMECARE INSTRUCTIONS Hypo instructions ? When first signs of insulin reaction occur, immediately drink orange juice or cola, or suck on a sugar cube, but only if the person is conscious. ? Person with diabetes should continue taking insulin when ill, unless he/she is not able to eat.? Regularly check blood sugar or urine for sugar and acetone during illness. ? Exercise regularly. ? Pay special attention to the feet.? Avoid cuts, sores, blisters, ill- fitting shoes, or going barefoot.? Promptly treat injuries to the feet. ? Take medications as directed by physician. ? Drink extra water or noncaffeinated, nonsugared drinks to prevented hydration. Signs and symptoms of low blood sugar (happen quickly) Each person's reaction to low blood sugar is different. Learn your own signs and symptoms of when your blood sugar is low. Taking time to write these symptoms down may help you learn your own symptoms of when your blood sugar is low. From milder, more common indicators to most severe, signs and symptoms of low blood sugar include: Feeling shaky Being nervous or anxious Sweating, chills and clamminess Irritability or impatience Confusion Fast heartbeat Feeling lightheaded or dizzy Hunger Nausea Color draining from the skin (pallor) Feeling Sleepy Feeling weak or having no energy Blurred/impaired vision Tingling or numbness in the lips, tongue, or cheeks Headaches Coordination problems, clumsiness Hypoglycemia or blood glucose under 70 mg/dL use the rule of 15's: If you have your blood glucose meter test your blood glucose, if you do not have your meter still follow below instruction: Keep quick-sugar foods with you at all times.? Take 15 grams of fast acting carbohydrates. Examples are 4 ounces of fruit juice or regular soda pop, 8 ounces fat-free milk, 1 tablespoon of table sugar, honey or corn syrup, jam, one miniature box of raisins, 7-8 gumdrops or Life Savers candy, 4 glucose tablets, and glucose gel.? Retest blood glucose in 15 minutes, if blood glucose is still under 80 mg/mL ,repeat rule of 15's. If blood glucose is under 50, take 30 grams of fast acting carbohydrates If you are having hypoglycemia, or insulin reaction, more that a few times a week, call MD or nurse informatics educator F/U BG check Coding Level of Care Code Est Pt Level 1 (49925) Diagnoses Diabetes type 2, uncontrolled E11.65
== END 2023-10-04 10:12 | disposition home or self-care (01) ==
PROVIDERS: PCP Internal Medicine; Visit Provider Registered Nurse Diabetes Educator
DX: E11.65 Type 2 diabetes mellitus with hyperglycemia (principal)

== ENCOUNTER → 2023-10-04 09:11 | Outpatient (BNVA) | payer OTHER, SELFPAY | PROVIDERS: PCP Internal Medicine; Visit Provider Registered Nurse Diabetes Educator | DX: E11.65 Type 2 diabetes mellitus with hyperglycemia (principal); Z71.89 Other specified counseling | CPT/HCPCS: 99211 ==

== ENCOUNTER 2023-11-16 09:51 | Outpatient (AMB) | payer OTHER, SELFPAY ==
--- NOTE | 2023-11-16 08:32 | A.OFFVIS_ITS ---
Vital Signs 11/16/23 09:51 Height 6 ft Weight 293 lb 3.437 oz BMI 39.8 BP 126/70 Blood Pressure Location Rt brachial Position Sitting Pulse 90 Pulse Source Pulse Oximeter Intake Visit Reasons: T2DM/CONFIRMED Intake Note: Patient presents today for a follow-up on Type 2 Diabetes Mellitus: Last Diabetic eye exam was on: DUE Last Podiatry exam was: 12/16/2022, [facility] Most recent HbA1c: 10.3%, 08/30/2023 Random Glucose- 134 mg/dL, Today Career Development Manager Required: No Accompanied by: Self / Same As Patient Allergies Proventil Allergy (Unknown, Uncoded 11/16/23 09:52) rash HPI Comments Details: 38 YO M with PMHx T2DM, HTN, HLD who is seen in F/U for T2DM. Patient last saw Dr. Pimentel 09/19/23 and Yennifer ARMAS for general education. Last A1C was 10.3% on 08/30/23 down from previous 12.9% Initially diagnosed with T2DM in 2009 during a routine physical exam. Was initially started on treatment with Metformin, began using Insulin approximately 1 year later. He previously had failed treatment with Glipizide 10 mg PO BID, and after his initial visit in Endocrine, Humalog was stopped. Ozempic caused vomiting Current regimen: Tresiba 26 units QHS Metformin [id number] mg PO BID Mounjaro 5 mg weekly Jardiance 25 mg PO daily, He is checking his glucose 2-3 times per day. 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 Treats lows with food. Family history of T2DM in Mother and Sister. Has eyes checked yearly, last eye exam last yr. Needs to make appt per Patient report, does report retinopathy. Has Neuropathy, Has seen podiatry in the past. Has Charcot foot with h/o fractures in the past Has Nephropathy, on Lisinopril 20 mg PO daily. Microalbumin 06/22 greater than 2000 Has HLD. On Atorvastatin 40 mg PO daily. Denies CAD. Diet:Has had some difficulty controlling portions but is working on this Has difficulty at lunch which tends to be a fast food meal Has had CDE. [facility] screen Fibrosis-4 (Fib-4) Index for liver fibrosis (calculated on lab work done:05/21 ) [0.75 ] points Advanced fibrosis [excluded ] Approximate Fibrosis stage Cassie [0-1 ] *Use with caution in patients <35 or >65 years old, as the score has been shown to be less reliable in these patients. Prior Imaging [] Action Plan: [] rescreen two years from date of screening labs[05/23 ] [facility] Medical History (Updated 11/16/23 @ 13:25 by Heidi Oliva NP) Charcot arthropathy Obesity (BMI 30.0-34.9) Microalbuminuria Obesity Vitamin D deficiency HLD (hyperlipidemia) HTN (hypertension) T2DM (type 2 diabetes mellitus) Diabetes type 2, uncontrolled Surgical History Hx of eye surgery Hx of shoulder surgery Hx of circumcision Family History Father No problems noted. Mother Diabetes Social History Alcohol intake: never Patient Tobacco Use Status: Never used Tobacco Physical Exam Vital Signs: Last Vital Signs Pulse 90 11/16/23 09:51 BP 126/70 11/16/23 09:51 BMI result Body Mass Index 39.8 Extrem Other: Visual exam of foot performed. No ulcerations or open lesions. No inter digit maceration or fissuring. No onychomycosis, no callouses. Sensation intact to monofilament exam. Vibratory sensation is normal with 128 Hz tuning fork. charcot foot bilateral. Results Reviewed Results Reviewed: Laboratory Last Values Glucose (Clinic) 134 mg/dL (60-115) H 11/16/23 10:01 Laboratory Tests 03/24/23 04/10/23 00:00 11:07 Plt Count 206 AST 28 ALT 45 H Laboratory Tests 06/04/23 06/04/23 08/30/23 10:26 10:30 15:01 Creatinine 1.32 Estimated GFR > 60 Hgb A1c (Clinic) 10.3 H Urine Creatinine 46.10 Urine Microalbumin > 2000.0 Microalb/Creat Ratio 4338.3 H 08/30/23 15:01 Creatinine Estimated GFR Hgb A1c (Clinic) 10.3 H Urine Creatinine Urine Microalbumin Microalb/Creat Ratio Assessment & Plan Assessment & Plan (1) Diabetes type 2, uncontrolled: Code(s): E11.65 - Type 2 diabetes mellitus with hyperglycemia Category: Medical Plan: Type 2 diabetic with average glucose above target. Will increase Tresiba. New dosing: Tresiba 36 units QHS Metformin [id number] mg PO BID Mounjaro 5 mg weekly Jardiance 25 mg PO daily, (2) Microalbuminuria: Code(s): R80.9 - Proteinuria, unspecified Category: Medical Plan: He has elevated protein in urine to 1999. will refer to nephrology. He is on an zachery-i and sglt-2 inhibitor. He has agreed to referral. (3) Obesity (BMI 30.0-34.9): Code(s): E66.9 - Obesity, unspecified Category: Medical Plan: discussed possible bariatric surgery will place referral and note proteinuria. (4) Charcot arthropathy: Code(s): M14.60 - Charcot's joint, unspecified site Category: Medical Plan: He has bilateral Charcot arthropathy which predated the development of georgina felisa. Foot is stable at present and I will wait until he changes his insurance to [employer] fep Orders: Orders Islet Cell Antibody Scrn/Titer Today E11.65 - Type 2 diabetes mellitus with hyperglycemia Glutamic acid decarboxylase Ab Today E11.65 - Type 2 diabetes mellitus with hyperglycemia Creatinine Urine Today E11.65 - Type 2 diabetes mellitus with hyperglycemia C Peptide Today E11.65 - Type 2 diabetes mellitus with hyperglycemia Referrals Nephrology Referral R80.9 - Proteinuria, unspecified Bariatric Surgery Referral E66.9 - Obesity, unspecified Medications: New Mounjaro (tirzepatide) 7.5 mg (0.5 mL) subcut QWEEK 2 mL 11RF NS E11.65 - Type 2 diabetes mellitus with hyperglycemia Changed From insulin degludec (Tresiba FlexTouch U-100 insulin) 18 units (0.18 mL) subcut BEDTIME 30 days 5.4 mL 11RF E11.65 - Type 2 diabetes mellitus with hyperglycemia To Tresiba FlexTouch U-100 (insulin degludec) 36 units (0.36 mL) subcut BEDTIME 30 days 12 mL 11RF NS E11.65 - Type 2 diabetes mellitus with hyperglycemia Discontinued tirzepatide (Mounjaro) Discontinued Reason: Doctor's Order 5 mg (0.5 mL) subcut QWEEK 2 mL 4RF Scribe Plan - Not visible on output: The patient was counseled to achieve a target A1C of 7% (154 avg). Fasting blood sugars should be 90-130 in the morning and less than 180 two hours after meals. Reviewed the relationship between poor diabetic control and the developement of complications The patient was counseled to always carry a source of sugar and on the rule of 15's: Take 3 glucose tablets and repeat again in 15 minutes if blood sugar is not in normal range. Continue to repeat every 15 minutes until blood sugar is normal. The patient was counseled to wear closed toe shoes, never walk barefooted and to inspect the feet daily. For any signs of infection or open wound patient should notify PCP or go to urgent care. Coding Level of Care Code Est Pt Level 5 (57684) Complex EM visit Add On G2211 Diagnoses Diabetes type 2, uncontrolled E11.65 Microalbuminuria R80.9 Obesity (BMI 30.0-34.9) E66.9 Charcot arthropathy M14.60 Time Spent (min) 45 Comment Time spent reviewing labs/provider notes, face to face, chart doc
[2023-11-16 09:51] VITALS: BP 126/70; PULSE 90; BMI 39.8
[2023-11-16 10:06] LABS: Glucose, Whole Blood 134 mg/dL (60-115)
== END 2023-11-16 10:36 | disposition home or self-care (01) ==
PROVIDERS: PCP Internal Medicine; Visit Provider Nurse Practitioner Adult Health
DX: E11.65 Type 2 diabetes mellitus with hyperglycemia (principal); R80.9 Proteinuria, unspecified; E66.9 Obesity, unspecified; Z68.39 Body mass index [BMI] 39.0-39.9, adult; M14.60 Charcot's joint, unspecified site
CPT/HCPCS: 99215; G2211

== ENCOUNTER → 2023-11-16 09:51 | Outpatient (BNVA) | payer OTHER, SELFPAY | PROVIDERS: PCP Internal Medicine; Visit Provider Nurse Practitioner Adult Health | DX: E11.610 Type 2 diabetes mellitus with diabetic neuropathic arthropathy (principal); E11.40 Type 2 diabetes mellitus with diabetic neuropathy, unspecified; E11.21 Type 2 diabetes mellitus with diabetic nephropathy; E11.65 Type 2 diabetes mellitus with hyperglycemia; E78.5 Hyperlipidemia, unspecified; I10 Essential (primary) hypertension; R80.9 Proteinuria, unspecified; E66.9 Obesity, unspecified; Z68.39 Body mass index [BMI] 39.0-39.9, adult; Z79.4 Long term (current) use of insulin | CPT/HCPCS: 82947; 99212 ==

== ENCOUNTER 2023-11-16 10:41 | Outpatient (REF) | payer OTHER, SELFPAY ==
[2023-11-16 14:39] LABS: Creatinine Urine 68.71 mg/dL
[2023-11-16 15:09] LABS: Microalbum/Creatinine Ratio Ur 2427.5 ug/mg cr (<30)
[2023-11-18 12:04] LABS: C Peptide 2.13 ng/mL (0.80-3.85)
[2023-11-21 20:54] LABS: Glutamic acid decarboxylase Ab <5 IU/mL (<5)
[2023-11-23 08:24] LABS: Islet Cell Antibody Screen NEGATIVE (NEGATIVE)
== END 2023-11-16 10:42 | disposition home or self-care (01) ==
LOC: HO.10HDL 10:41
PROVIDERS: Visit Provider Nurse Practitioner Adult Health
DX: E11.65 Type 2 diabetes mellitus with hyperglycemia (principal)
CPT/HCPCS: 36415; 82043; 82570; 84681; 86341

== ENCOUNTER 2023-12-20 11:08 | Outpatient (AMB) | payer OTHER, SELFPAY ==
--- NOTE | 2023-12-20 11:07 | HO.NEPHOV ---
Vital Signs 12/20/23 11:08 Height 6 ft Weight 300 lb BMI 40.7 BP 136/88 Blood Pressure Location Lt brachial Position Sitting Pulse 97 Pulse Source Pulse Oximeter Pulse Oximetry (%) 98 Oxygen Delivery Method Room Air Intake Visit Reasons: Proteinuria/ LVM Sample Body Builder Required: No Accompanied by: Self / Same As Patient Allergies Proventil Allergy (Unknown, Uncoded 11/16/23 09:52) rash Medication List - Last Reconciled 12/20/23 by Kevin Bolanos MD amlodipine 10 mg PO DAILY atorvastatin 80 mg PO DAILY blood sugar diagnostic (FreeStyle Lite Strips) As directed tests 4X/day blood-glucose meter (FreeStyle Lite Meter kit) As directed blood-glucose meter (FreeStyle Lite Meter kit) As directed checks 4 X/day blood-glucose sensor (FreeStyle Viky 3 Sensor device) As directed change every 14 days chlorthalidone 25 mg PO DAILY cholecalciferol (vitamin D3) (Vitamin D3) 50 mcg PO DAILY cyclobenzaprine 10 mg PO TID PRN empagliflozin (Jardiance) 25 mg PO DAILY 30 days ibuprofen 600 mg PO Q6H PRN insulin needles (disposable) As directed lancets (FreeStyle Lancets) As directed chacks 4/day lidocaine 4% 1 patch topical DAILY PRN lisinopril 40 mg PO DAILY 30 days metformin ER 1,000 mg (2 x 500 mg) PO BID 90 days methocarbamol 750 mg PO Q8H PRN Mounjaro (tirzepatide) 7.5 mg (0.5 mL) subcut QWEEK NS pen needle, diabetic (BD Ultra-Fine Micro Pen Needle) 1x daily pioglitazone 15 mg PO DAILY sertraline 50 mg PO DAILY Tresiba FlexTouch U-100 (insulin degludec) 36 units (0.36 mL) subcut BEDTIME 30 days NS HPI Comments Details: Sean is a pleasant 38-year-old man with a history of longstanding diabetes mellitus and hypertension who has been referred for evaluation of proteinuria. He has a history of obesity and hyperlipidemia as well. Recent serum creatinine was 1.32 mg/dL. He had about 2.4 g of proteinuria based on the protein creatinine ratio. He is currently on lisinopril as well as SGLT2 inhibitors. [facility] Medical History (Updated 11/16/23 @ 13:25 by Heidi Oliva NP) Charcot arthropathy Obesity (BMI 30.0-34.9) Microalbuminuria Obesity Vitamin D deficiency HLD (hyperlipidemia) HTN (hypertension) T2DM (type 2 diabetes mellitus) Diabetes type 2, uncontrolled Surgical History Hx of eye surgery Hx of shoulder surgery Hx of circumcision Family History Father No problems noted. Mother Diabetes Social History Alcohol intake: never Patient Tobacco Use Status: Never used Tobacco Review of Systems Const Reports as per HPI, Denies anorexia, Denies fatigue, Denies fever(s) and Denies headache(s) Eyes Denies blurry vision ENT Denies headache(s) Card Denies chest pain, Denies pedal edema and Denies dyspnea Resp Denies cough, Denies hemoptysis and Denies dyspnea GI Denies diarrhea, Denies nausea and Denies vomiting Denies hematuria, Denies urinary frequency and Denies urinary hesitancy Neuro Denies confusion, Denies headache(s) and Denies focal weakness Psych Denies confusion Endo Denies cold intolerance, Denies fatigue and Denies polyuria Physical Exam Vital Signs: Last Vital Signs Pulse 97 12/20/23 11:08 BP 136/88 12/20/23 11:08 Pulse Ox 98 12/20/23 11:08 Oxygen Delivery Method Room Air 12/20/23 11:08 BMI result Body Mass Index 40.7 Const General: No confusion Nutritional Appearance: obese Orientation/consciousness: No confusion Eyes General: appearance normal, both eyes and all related structures Visual Winslow: normal visual winslow by confrontation Neck Neck: Yes supple and Yes no JVD Resp Effort & Inspection: normal respiratory effort and respiratory effort not decreased Auscultation: rhonchi Cardio Palpation: no palpable S3 and no palpable S4 Heart sounds: no rubs GI Inspection: Yes normal to inspection Palpation (GI): Soft to palpation Percussion: Yes normal to percussion Auscultation: normal bowel sounds General: Yes no CVA tenderness Back/Spine/Pelvis Back: no CVA tenderness Skin General skin exam: no petechiae and no purpura Neuro General: No confusion Extrem General: No clubbing and No edema Results Reviewed Results Reviewed: Labs reviewed Serum creatinine 1.32 Nephrology Results: Urine Creatinine 68.71 mg/dL 11/16/23 Assessment & Plan Assessment & Plan (1) T2DM (type 2 diabetes mellitus): Code(s): E11.9 - Type 2 diabetes mellitus without complications Category: Medical Qualifiers: Diabetes mellitus complication status: with hyperglycemia Diabetes mellitus long term care pharmacist insulin use: without long term care pharmacist use Qualified Code(s): E11.65 - Type 2 diabetes mellitus with hyperglycemia (2) HTN (hypertension): Code(s): I10 - Essential (primary) hypertension Category: Medical Qualifiers: Hypertension type: unspecified Qualified Code(s): I10 - Essential (primary) hypertension Plan Sean is a 38-year-old man with a history of longstanding hypertension diabetes mellitus and obesity who has mild CKD with nephrotic range proteinuria. He probably has underlying diabetic nephropathy. Non diabetic causes seem less likely at this point. He has mild CKD probably CKD stage 2 with a serum creatinine of 1.32. Goal is to slow the progression of renal disease. Maintain A1c less than 7% Maintain blood pressure less than 130/80 Continue to avoid nephrotoxic agents including NSAIDs. Discussed importance of weight loss. Agree with both LEVI inhibitors and SGLT2 inhibitors for cardiorenal protection. Encouraged him to stay on low-sodium diet. He had mild anemia in the past. Shall recheck hemoglobin again He returned to office once the baseline workup is completed Orders: Orders Basic Metabolic Panel Today E11.65 - Type 2 diabetes mellitus with hyperglycemia, I10 - Essential (primary) hypertension US renal BI Today E11.65 - Type 2 diabetes mellitus with hyperglycemia, I10 - Essential (primary) hypertension Complete Blood Count Auto Diff Today E11.65 - Type 2 diabetes mellitus with hyperglycemia, I10 - Essential (primary) hypertension Total Protein Urine Random Today E11.65 - Type 2 diabetes mellitus with hyperglycemia, I10 - Essential (primary) hypertension UA and rflx microscopic Today E11.65 - Type 2 diabetes mellitus with hyperglycemia, I10 - Essential (primary) hypertension Creatinine Urine Today E11.65 - Type 2 diabetes mellitus with hyperglycemia, I10 - Essential (primary) hypertension Coding Level of Care Code New Pt Level 5 (29662) Diagnoses Type 2 diabetes mellitus with hyperglycemia, without long-term current use of insulin E11.65 Diabetes mellitus complication status: with hyperglycemia Diabetes mellitus residential insulin use: without long term care pharmacist use Hypertension, unspecified type I10 Hypertension type: unspecified
[2023-12-20 11:08] VITALS: BP 136/88; PULSE 97; O2SAT 98; BMI 40.7
== END 2023-12-20 11:28 | disposition home or self-care (01) ==
PROVIDERS: PCP Internal Medicine; Referring Provider Nurse Practitioner Adult Health; Visit Provider Internal Medicine Hypertension Specialist
DX: I12.9 Hypertensive chronic kidney disease with stage 1 through stage 4 chronic kidney disease, or unspecified chronic kidney disease (principal); E11.22 Type 2 diabetes mellitus with diabetic chronic kidney disease; N18.2 Chronic kidney disease, stage 2 (mild); E11.65 Type 2 diabetes mellitus with hyperglycemia
CPT/HCPCS: 99204

== ENCOUNTER → 2023-12-20 11:08 | Outpatient (BNVA) | payer OTHER, SELFPAY | PROVIDERS: PCP Internal Medicine; Referring Provider Nurse Practitioner Adult Health; Visit Provider Internal Medicine Hypertension Specialist | DX: E11.65 Type 2 diabetes mellitus with hyperglycemia (principal); E11.22 Type 2 diabetes mellitus with diabetic chronic kidney disease; I12.9 Hypertensive chronic kidney disease with stage 1 through stage 4 chronic kidney disease, or unspecified chronic kidney disease; N18.9 Chronic kidney disease, unspecified; R80.9 Proteinuria, unspecified; E66.9 Obesity, unspecified | CPT/HCPCS: 99202 ==

== ENCOUNTER 2023-12-20 11:31 | Outpatient (REF) | payer OTHER, SELFPAY ==
[2023-12-20 13:23] LABS: MANUAL DIFF FLAG NO
[2023-12-20 13:24] LABS: Appearance Urine Clear; Color Urine Yellow; Glucose Urine UA >=1000 mg/dL (Negative); Leukocyte Esterase Urine Negative (Negative); Nitrite Urine Negative (Negative); PH 6.5 (5.0-9.0); UMIC TRIGGER UA YES; Urine Blood Small (1+) (Negative); Urine Ketones Negative (Negative); Urine Protein 300 (3+) mg/dL (Neg-Trace)
[2023-12-20 13:34] LABS: Basophils Absolute Auto 0.1 X10*3/uL (0.0-0.2); Basophils Percent Auto 0.7 % (0-2); Eosinophils Absolute Auto 0.4 X10*3/uL (0.0-0.4); Eosinophils Percent Auto 3.4 % (0-4); Hematocrit 37.5 % (42.0-52.0); Hemoglobin 12.1 g/dl (14.0-18.0); Imm Gran Abs Auto 0.07 X10*3/uL (0.00-0.03); Imm Gran Pct Auto 0.6 % (0.0-0.4); Lymphocytes Absolute Auto 2.1 X10*3/uL (1.2-4.9); Lymphocytes Percent Auto 16.9 % (20-40); Mean Corpuscular HGB Conc 32.3 g/dl (31.0-36.0); Mean Corpuscular Hemoglobin 25.7 pg (27.0-33.0); Mean Corpuscular Volume 79.6 fL (80.0-98.0); Mean Platelet Volume 9.9 fL (9.4-12.4); Monocytes Absolute Auto 0.7 X10*3/uL (0.1-1.2); Neutrophils Absolute Auto 8.9 x10*3/uL (2.0-8.3); Neutrophils Percent Auto 72.4 % (45-73); Platelet Count 265 X10*3/uL (160-400); Red Blood Count 4.71 X10*6/uL (4.60-5.80); Red Cell Distribution Width 12.5 % (11.0-16.0); White Blood Count 12.2 X10*3/uL (4.8-10.8)
[2023-12-20 13:39] LABS: Bacteria Urine None Seen (None Seen); Hyaline Casts Urine 0-2 /LPF (0-2); Squamous Epithelial Cell Urine 0-2 /HPF (0-2); WBC Urine 0-5 /HPF (0-5)
[2023-12-20 14:20] LABS: Anion Gap 10 (12-20); Blood Urea Nitrogen 36 mg/dL (9-16); Calcium 8.7 mg/dL (8.4-10.2); Carbon Dioxide 28 mmol/L (22-29); Chloride 107 mmol/L (96-108); Estimated Glomerular Filt Rate 43; Glucose Random 120 mg/dL (60-115); Potassium 4.2 mmol/L (3.3-5.1); Sodium 141 mmol/L (135-145)
[2023-12-20 14:55] LABS: Creatinine Urine 54.31 mg/dL
[2023-12-20 15:22] LABS: Total Protein Urine Random 208 mg/dL (<12)
== END 2023-12-20 11:32 | disposition home or self-care (01) ==
LOC: HO.10HDL 11:31
PROVIDERS: Visit Provider Internal Medicine Hypertension Specialist
DX: E11.65 Type 2 diabetes mellitus with hyperglycemia (principal); I10 Essential (primary) hypertension
CPT/HCPCS: 36415; 80048; 81001; 82570; 84156; 85025

== ENCOUNTER 2024-01-13 10:49 | Outpatient (REF) | payer OTHER, BC, SELFPAY ==
--- NOTE | ~2024-01-13 | US_ITS ---
EXAMINATION: US RENAL BILATERAL CLINICAL INFORMATION: Essential hypertension. COMPARISON: None available. TECHNIQUE: Grayscale and Doppler images of the kidneys were obtained. FINDINGS: RIGHT KIDNEY: 12.7 x 5.3 x 6.8 cm (SAG x AP x TRV). The kidney is normal in size, contour, and echogenicity. Renal cortical thickness is normal. No calculi or focal parenchymal lesions. No hydronephrosis. LEFT KIDNEY: 12.8 x 5.4 x 6.0 cm (SAG x AP x TRV). The kidney is normal in size, contour, and echogenicity. Renal cortical thickness is normal. No calculi or focal parenchymal lesions. No hydronephrosis. US/US renal BI IMPRESSION: Unremarkable examination. Electronically signed by: Darius Pink MD 01/13/2024 03:06 PM MK
== END 2024-01-13 10:50 | disposition home or self-care (01) ==
LOC: HO.US 10:49
PROVIDERS: PCP Internal Medicine; Visit Provider Internal Medicine Hypertension Specialist
DX: I10 Essential (primary) hypertension (principal); E11.65 Type 2 diabetes mellitus with hyperglycemia
CPT/HCPCS: 76775

== ENCOUNTER 2024-01-31 15:56 | Outpatient (AMB) | payer OTHER, SELFPAY ==
[2024-01-31 16:00] VITALS: BP 146/82; PULSE 100; O2SAT 98; BMI 42.0
--- NOTE | 2024-01-31 16:00 | HO.NEPHOV_ITS ---
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: No Accompanied by: Self / Same As Patient Allergies Proventil Allergy (Unknown, Uncoded 11/16/23 09:52) rash Medication List - Last Reconciled 01/31/24 by Kevin Bolanos MD amlodipine 10 mg PO DAILY atorvastatin 80 mg PO DAILY blood sugar diagnostic (FreeStyle Lite Strips) As directed tests 4X/day blood-glucose meter (FreeStyle Lite Meter kit) As directed blood-glucose meter (FreeStyle Lite Meter kit) As directed checks 4 X/day blood-glucose sensor (FreeStyle Viky 3 Sensor device) As directed change every 14 days chlorthalidone 25 mg PO DAILY cholecalciferol (vitamin D3) (Vitamin D3) 50 mcg PO DAILY 90 days cyclobenzaprine 10 mg PO TID PRN empagliflozin (Jardiance) 25 mg PO DAILY 30 days insulin needles (disposable) As directed lancets (FreeStyle Lancets) As directed chacks 4/day lidocaine 4% 1 patch topical DAILY PRN lisinopril 40 mg PO DAILY 30 days metformin ER 1,000 mg (2 x 500 mg) PO BID 90 days methocarbamol 750 mg PO Q8H PRN Mounjaro (tirzepatide) 7.5 mg (0.5 mL) subcut QWEEK NS pen needle, diabetic (BD Ultra-Fine Micro Pen Needle) 1x daily pioglitazone 15 mg PO DAILY sertraline 50 mg PO DAILY Tresiba FlexTouch U-100 (insulin degludec) 36 units (0.36 mL) subcut BEDTIME 30 days NS HPI Comments Details: Sean is a pleasant 38-year-old man with a history of longstanding diabetes mellitus and hypertension who has been referred for evaluation of proteinuria. He has a history of obesity and hyperlipidemia as well. Recent serum creatinine was 1.32 mg/dL. He had about 2.4 g of proteinuria based on the protein creatinine ratio. He is currently on lisinopril as well as SGLT2 inhibitors. 01/31/24 Ran out of Jardiance and Lisinopril 40 mg QD for 2 weeks PFSH Medical History (Updated 11/16/23 @ 13:25 by Heidi Oliva NP) Charcot arthropathy Obesity (BMI 30.0-34.9) Microalbuminuria Obesity Vitamin D deficiency HLD (hyperlipidemia) HTN (hypertension) T2DM (type 2 diabetes mellitus) Diabetes type 2, uncontrolled Surgical History Hx of eye surgery Hx of shoulder surgery Hx of circumcision Family History Father No problems noted. Mother Diabetes Social History Alcohol intake: never Patient Tobacco Use Status: Never used Tobacco Review of Systems Const Denies fever(s) and Denies weight loss Card Denies chest pain Resp Denies cough and Denies hemoptysis GI Denies abdominal pain, Denies diarrhea and Denies nausea Musc Denies back pain Neuro Denies focal weakness Physical Exam Vital Signs: Last Vital Signs Pulse 100 01/31/24 16:00 BP 146/82 H 01/31/24 16:00 Pulse Ox 98 01/31/24 16:00 Oxygen Delivery Method Room Air 01/31/24 16:00 BMI result Body Mass Index 42.0 Comfortable Neck supple no JVD. Lungs entry equal no rales. Heart S1-S2 heard no gallop or rub. Abdomen soft nontender. Neuro alert awake oriented. No asterixis. Extremities no edema. Results Reviewed Nephrology Results: Hgb 12.1 g/dl (14.0-18.0) L 12/20/23 WBC 12.2 X10*3/uL (4.8-10.8) H 12/20/23 Plt Count 265 X10*3/uL (160-400) 12/20/23 Sodium 141 mmol/L (135-145) 12/20/23 Potassium 4.2 mmol/L (3.3-5.1) 12/20/23 Chloride 107 mmol/L (96-108) 12/20/23 Carbon Dioxide 28 mmol/L (22-29) 12/20/23 BUN 36 mg/dL (9-16) H 12/20/23 Creatinine 1.80 mg/dL (0.5-1.4) H 12/20/23 Calcium 8.7 mg/dL (8.4-10.2) 12/20/23 Urine Protein 300 (3+) mg/dL (Neg-Trace) H 12/20/23 Urine Creatinine 54.31 mg/dL 12/20/23 Renal US 01/13/24 Assessment & Plan Assessment & Plan (1) T2DM (type 2 diabetes mellitus): Code(s): E11.9 - Type 2 diabetes mellitus without complications Category: Medical Qualifiers: Diabetes mellitus complication status: with hyperglycemia Diabetes mellitus group home insulin use: without equipment operator intermodal yard use Qualified Code(s): E11.65 - Type 2 diabetes mellitus with hyperglycemia (2) HTN (hypertension): Code(s): I10 - Essential (primary) hypertension Category: Medical Qualifiers: Hypertension type: unspecified Qualified Code(s): I10 - Essential (primary) hypertension Plan Sean is a 38-year-old man with a history of longstanding hypertension diabetes mellitus and obesity who has mild CKD with nephrotic range proteinuria. He probably has underlying diabetic nephropathy. Non diabetic causes need to be ruled out He had mild CKD probably CKD stage 2 with a serum creatinine of 1.32. in May 2023 Repeat cr was 1.8 in Nov 2023 Needs further workup for bump in creatinine. Recent renal ultrasonogram was unremarkable and there was no obstruction. Serological workup ordered. Goal is to slow the progression of renal disease. Maintain A1c less than 7% Maintain blood pressure less than 130/80 Continue to avoid nephrotoxic agents including NSAIDs. Discussed importance of weight loss. Agree with both LEVI inhibitors and SGLT2 inhibitors for cardiorenal protection. Encouraged him to stay on low-sodium diet. He had mild anemia in the past. Hemoglobin still remains low at 12.1 with low MCV Shall check iron and TIBC ferritin. Orders: Orders Basic Metabolic Panel Today E11.65 - Type 2 diabetes mellitus with hyperglycemia, I10 - Essential (primary) hypertension Total Protein Urine Random Today E11.65 - Type 2 diabetes mellitus with hyperglycemia, I10 - Essential (primary) hypertension IRON PROFILE Today E11.65 - Type 2 diabetes mellitus with hyperglycemia, I10 - Essential (primary) hypertension Neutrophil Cytoplasma Ab Today E11.65 - Type 2 diabetes mellitus with hyperglycemia, I10 - Essential (primary) hypertension Anti Glomerular Basement Memb Today E11.65 - Type 2 diabetes mellitus with hyperglycemia, I10 - Essential (primary) hypertension Protein Electrophoresis, Serum Today - Type 2 diabetes mellitus with hyperglycemia, I10 - Essential (primary) hypertension Complete Blood Count Auto Diff Today - Type 2 diabetes mellitus with hyperglycemia, I10 - Essential (primary) hypertension UA and rflx microscopic Today - Type 2 diabetes mellitus with hyperglycemia, I10 - Essential (primary) hypertension Creatinine Urine Today - Type 2 diabetes mellitus with hyperglycemia, I10 - Essential (primary) hypertension Ferritin Today - Type 2 diabetes mellitus with hyperglycemia, I10 - Essential (primary) hypertension WALDEMAR Reflex Titer and Pattern Today - Type 2 diabetes mellitus with hyperglycemia, I10 - Essential (primary) hypertension Myeloperoxidase Antibody Today - Type 2 diabetes mellitus with hyperglycemia, I10 - Essential (primary) hypertension Proteinase 3 PR3 Antibodies Today - Type 2 diabetes mellitus with hyperglycemia, I10 - Essential (primary) hypertension Complement C3 Today - Type 2 diabetes mellitus with hyperglycemia, I10 - Essential (primary) hypertension Complement C4 Today - Type 2 diabetes mellitus with hyperglycemia, I10 - Essential (primary) hypertension Phospholipase A2 Receptor Pnl Today - Type 2 diabetes mellitus with hyperglycemia, I10 - Essential (primary) hypertension Medications: Discontinued ibuprofen Discontinued Reason: Patient no longer taking 600 mg PO Q6H PRN 30 tabs 0RF pain Coding Level of Care Code Est Pt Level 4 (12785) Diagnoses Type 2 diabetes mellitus with hyperglycemia, without long-term current use of insulin Diabetes mellitus complication status: with hyperglycemia Diabetes mellitus group home insulin use: without group home use Hypertension, unspecified type I10 Hypertension type: unspecified
== END 2024-01-31 16:14 | disposition home or self-care (01) ==
PROVIDERS: PCP Internal Medicine; Visit Provider Internal Medicine Hypertension Specialist
DX: E11.21 Type 2 diabetes mellitus with diabetic nephropathy (principal); I10 Essential (primary) hypertension
CPT/HCPCS: 99214

== ENCOUNTER → 2024-01-31 15:56 | Outpatient (BNVA) | payer OTHER, SELFPAY | PROVIDERS: PCP Internal Medicine; Visit Provider Internal Medicine Hypertension Specialist | DX: I12.9 Hypertensive chronic kidney disease with stage 1 through stage 4 chronic kidney disease, or unspecified chronic kidney disease (principal); E11.65 Type 2 diabetes mellitus with hyperglycemia; E11.22 Type 2 diabetes mellitus with diabetic chronic kidney disease; R80.9 Proteinuria, unspecified; N18.9 Chronic kidney disease, unspecified | CPT/HCPCS: 99212 ==

== ENCOUNTER 2024-02-01 10:04 | Outpatient (REF) | payer OTHER, BC, SELFPAY ==
[2024-02-01 11:53] LABS: MANUAL DIFF FLAG NO
[2024-02-01 12:44] LABS: Basophils Absolute Auto 0.1 X10*3/uL (0.0-0.2); Basophils Percent Auto 0.4 % (0-2); Eosinophils Absolute Auto 0.4 X10*3/uL (0.0-0.4); Eosinophils Percent Auto 3.7 % (0-4); Hematocrit 38.4 % (42.0-52.0); Hemoglobin 12.1 g/dl (14.0-18.0); Imm Gran Abs Auto 0.06 X10*3/uL (0.00-0.03); Imm Gran Pct Auto 0.5 % (0.0-0.4); Lymphocytes Absolute Auto 1.6 X10*3/uL (1.2-4.9); Lymphocytes Percent Auto 13.7 % (20-40); Mean Corpuscular HGB Conc 31.5 g/dl (31.0-36.0); Mean Corpuscular Hemoglobin 25.1 pg (27.0-33.0); Mean Corpuscular Volume 79.7 fL (80.0-98.0); Mean Platelet Volume 10.1 fL (9.4-12.4); Monocytes Absolute Auto 0.6 X10*3/uL (0.1-1.2); Monocytes Percent Auto 5.4 % (2-11); Neutrophils Percent Auto 76.3 % (45-73); Platelet Count 251 X10*3/uL (160-400); Red Blood Count 4.82 X10*6/uL (4.60-5.80); White Blood Count 11.8 X10*3/uL (4.8-10.8)
[2024-02-01 12:46] LABS: Appearance Urine Clear; Color Urine Yellow; Glucose Urine UA Negative (Negative); Leukocyte Esterase Urine Negative (Negative); Nitrite Urine Negative (Negative); PH 5.5 (5.0-9.0); Specific Gravity - Urine 1.015 (1.005-1.025); UMIC TRIGGER UA YES; Urine Blood Small (1+) (Negative); Urine Ketones Negative (Negative); Urine Protein 300 (3+) mg/dL (Neg-Trace)
[2024-02-01 13:20] LABS: Anion Gap 9 (12-20); Blood Urea Nitrogen 41 mg/dL (9-16); Calcium 8.5 mg/dL (8.4-10.2); Carbon Dioxide 28 mmol/L (22-29); Chloride 108 mmol/L (96-108); Estimated Glomerular Filt Rate 42; Glucose Random 107 mg/dL (60-115); Iron 60 mcg/dL (45-160); Percent Iron Saturation 23 % (15-50); Potassium 4.3 mmol/L (3.3-5.1); Sodium 141 mmol/L (135-145); Total Iron Binding Capacity 266 mcg/dL (228-428); Unsaturated Iron Binding 206 ug/dL
[2024-02-01 13:26] LABS: Bacteria Urine None Seen (None Seen); Hyaline Casts Urine 0-2 /LPF (0-2); RBC Urine 0-2 /HPF (0-2); WBC Urine 0-5 /HPF (0-5)
[2024-02-01 13:38] LABS: Ferritin 55 ng/mL (20-250)
[2024-02-01 13:52] LABS: Total Protein Urine Random 367 mg/dL (<12)
[2024-02-01 13:53] LABS: Creatinine Urine 76.94 mg/dL
[2024-02-02 16:14] LABS: Complement C3 145 mg/dL (82-185)
[2024-02-02 17:43] LABS: Anti Glomerular Basement Memb <1.0 AI; Myeloperoxidase Antibody <1.0 AI; Proteinase 3 PR3 Antibodies <1.0 AI
[2024-02-03 09:39] LABS: Anti Nuclear Antibody Screen NEGATIVE (NEGATIVE)
[2024-02-03 14:33] LABS: Prot Elec - Albumin 3.4 g/dL (3.8-4.8); Prot Elec - Alpha1 0.3 g/dL (0.2-0.3); Prot Elec - Alpha2 0.7 g/dL (0.5-0.9); Prot Elec - Beta 1 0.4 g/dL (0.4-0.6); Prot Elec - Beta 2 0.3 g/dL (0.2-0.5); Prot Elec - Gamma 0.9 g/dL (0.8-1.7); Prot Elec - Total Protein 6.1 g/dL (6.1-8.1)
[2024-02-03 16:24] LABS: Neutrophil Cyto Ab Screen NEGATIVE (NEGATIVE)
[2024-02-09 21:47] LABS: Phospholipase A2 IgG ELISA <4 RU/mL; Phospholipase A2 IgG IFA NEGATIVE (NEGATIVE)
== END 2024-02-01 10:05 | disposition home or self-care (01) ==
LOC: HO.LAB 10:04
PROVIDERS: PCP Internal Medicine; Referring Provider Internal Medicine Hypertension Specialist; Visit Provider Surgery
DX: E11.65 Type 2 diabetes mellitus with hyperglycemia (principal); I10 Essential (primary) hypertension
CPT/HCPCS: 36415; 80048; 81001; 82570; 82728; 83520; 83540; 84156; 84165; 85025; 86021; 86036; 86038; 86160; 86255

== ENCOUNTER 2024-02-02 09:54 | Outpatient (AMB) | payer OTHER, BC, SELFPAY ==
--- NOTE | 2024-02-02 07:31 | A.OFFVIS_ITS ---
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 Patient last seen 11/16/2023 at which time he was referred to Nephrology and has been seen several times at [facility] [place]. Last A1C was 10.3% on 08/30/23 down from previous 12.9%. He recently left his job at the [employer] as he felt he didn't have time to take care of his health. He has been working on decreasing his portions and had an initial appointment yesterday with a bariatric surgeon. He is seen regularly by Nephrology. Initially diagnosed with T2DM in 2009 during a routine physical exam. Was initially started on treatment with Metformin, began using Insulin approximately 1 year later. He previously had failed treatment with Glipizide 10 mg PO BID, and after his initial visit in Endocrine, Humalog was stopped. Ozempic caused vomiting Current regimen: Tresiba 36 units QHS Metformin [id number] mg PO BID Mounjaro 5 mg weekly Jardiance 25 mg PO daily, Some walking/goes to the gym not always consistently Reports no low sugars . Treats lows with food. Family history of T2DM in Mother and Sister. Has retinopathy,Has eyes checked yearly, last eye exam last yr. Needs to make appt Has Neuropathy, Has seen podiatry in the past. Has Charcot foot with h/o fractures in the past Has Nephropathy, on Lisinopril 20 mg PO daily. Microalbumin 06/22 greater than 2000 Has HLD. On Atorvastatin 40 mg PO daily. Denies CAD. Diet:Has had some difficulty controlling portions but is working on this Has difficulty at lunch which tends to be a fast food meal Has had CDE. [facility] screen Fibrosis-4 (Fib-4) Index for liver fibrosis (calculated on lab work done:05/21 ) [0.75 ] points Advanced fibrosis [excluded ] Approximate Fibrosis stage Cassie [0-1 ] *Use with caution in patients <35 or >65 years old, as the score has been shown to be less reliable in these patients. Prior Imaging [] Action Plan: [] rescreen two years from date of screening labs[05/23 ] [facility] Medical History Charcot arthropathy Obesity (BMI 30.0-34.9) Microalbuminuria Obesity Vitamin D deficiency HLD (hyperlipidemia) HTN (hypertension) T2DM (type 2 diabetes mellitus) Diabetes type 2, uncontrolled Surgical History H/O foot surgery Hx of eye surgery Hx of shoulder surgery Hx of circumcision Family History Father No problems noted. Mother Diabetes Social History Alcohol intake: never Patient Tobacco Use Status: Never used Tobacco Physical Exam Vital Signs: Last Vital Signs Pulse 96 02/02/24 10:05 BP 138/82 02/02/24 10:05 BMI result Body Mass Index 42.2 Const Other: Absence of Cushingoid features. Absence of acromegalic features. Neck exam reveals nl size thyroid about 15 gms. No thyroid nodules palpable. No carotid bruits present. Lungs CTA. Heart S1 S2, Reg R/R. No M/R G. Skin exam reveals absence of vitiligo or acanthosis nigricans. No edema Visual exam of foot performed. Right Charcot foot, skin dry with some cracking. No ulcerations or open lesions. No inter digit maceration or fissuring. No onychomycosis, no callouses. Sensation slight diminished to monofilament exam. Vibratory diminished is normal with 128 Hz tuning fork. Results AMB Hemoglobin A1c AMB Hemoglobin A1c 8.3 % Last Edit by GREGG Layne on 02/02/24 10:27 Assessment & Plan Assessment & Plan (1) Diabetes type 2, uncontrolled: Code(s): E11.65 - Type 2 diabetes mellitus with hyperglycemia Category: Medical Plan: 38-year-old type 2 diabetic with nephropathy followed by Nephrology, Charcot foot, neuropathy and retinopathy. If he is not given instructions and how to reduce his insulin by the bariatric surgeon he will contact our office if he decides to pursue a modified fast. He will go back on a freestyle once he gets new insurance. For now we will continue all medications and increase his Mounjaro to 10 mg. The patient had an opportunity to ask questions regarding treatment plan. The patient expressed understanding and agreement with the above treatment plan. The patient is aware they should contact our office by phone for worsening glucose readings or for any low blood sugars which may warrant a change in diabetes medication. Compliance is encouraged with medications and any followup testing/consults which may have been ordered. Orders: Orders AMB Hemoglobin A1c Today E11.65 - Type 2 diabetes mellitus with hyperglycemia Referrals Podiatry Referral M14.60 - Charcot's joint, unspecified site Medications: New tirzepatide (Mounjaro) 10 mg (0.5 mL) subcut QWEEK 28 days 2 mL 11RF Refilled empagliflozin (Jardiance) 25 mg PO DAILY 30 days 30 tabs 3RF E11.65 - Type 2 diabetes mellitus with hyperglycemia Discontinued Mounjaro (tirzepatide) Discontinued Reason: Doctor's Order 7.5 mg (0.5 mL) subcut QWEEK 2 mL 11RF NS E11.65 - Type 2 diabetes mellitus with hyperglycemia Patient Instructions: The patient was counseled to always carry a source of sugar and on the rule of 15's: Take 3 glucose tablets and repeat again in 15 minutes if blood sugar is not in normal range. Continue to repeat every 15 minutes until blood sugar is normal. The patient was counseled to achieve a target A1C of 7% (154 avg). Fasting blood sugars should be 90-130 in the morning and less than 180 two hours after meals. Reviewed the relationship between poor diabetic control and the development of complications. Check your feet daily looking for any signs of infection, ulceration and seek medical attention if this occurs. Break in shoes gradually and do not wear open-toed shoes or walk barefooted. Coding Level of Care Code Est Pt Level 4 (67681) Complex EM visit Add On G2211 Diagnoses Diabetes type 2, uncontrolled E11.65 Time Spent (min) 40 Comment Time spent reviewing labs/provider notes, face to face, chart doc
[2024-02-02 10:05] VITALS: BP 138/82; PULSE 96; BMI 42.2
[2024-02-02 10:18] LABS: Glucose, Whole Blood 138 mg/dL (60-115)
== END 2024-02-02 10:32 | disposition home or self-care (01) ==
PROVIDERS: PCP Internal Medicine; Visit Provider Nurse Practitioner Adult Health
DX: E11.65 Type 2 diabetes mellitus with hyperglycemia (principal)
CPT/HCPCS: 99214; G2211

== ENCOUNTER → 2024-02-02 09:54 | Outpatient (BNVA) | payer OTHER, BC, SELFPAY | PROVIDERS: PCP Internal Medicine; Visit Provider Nurse Practitioner Adult Health | DX: E11.65 Type 2 diabetes mellitus with hyperglycemia (principal) | CPT/HCPCS: 82947; 83036; 99212 ==

== ENCOUNTER 2024-02-18 08:01 | Outpatient (AMB) | payer OTHER, BC, SELFPAY ==
--- NOTE | 2024-02-18 08:21 | A.OFFVIS_ITS ---
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 Allergies Proventil Allergy (Unknown, Uncoded 02/18/24 08:21) rash Medication List - Last Reconciled 02/18/24 by Jay Duarte MD amlodipine 10 mg PO DAILY atorvastatin 80 mg PO DAILY blood sugar diagnostic (FreeStyle Lite Strips) As directed tests 4X/day blood-glucose meter (FreeStyle Lite Meter kit) As directed blood-glucose meter (FreeStyle Lite Meter kit) As directed checks 4 X/day blood-glucose sensor (FreeStyle Viky 3 Sensor device) As directed change every 14 days chlorthalidone 25 mg PO DAILY cholecalciferol (vitamin D3) (Vitamin D3) 50 mcg PO DAILY 90 days empagliflozin (Jardiance) 25 mg PO DAILY 30 days insulin needles (disposable) As directed lancets (FreeStyle Lancets) As directed chacks 4/day lisinopril 40 mg PO DAILY 30 days metformin ER 1,000 mg (2 x 500 mg) PO BID 90 days pen needle, diabetic (BD Ultra-Fine Micro Pen Needle) 1x daily pioglitazone 15 mg PO DAILY sertraline 50 mg PO DAILY tirzepatide (Mounjaro) 10 mg (0.5 mL) subcut QWEEK 28 days Tresiba FlexTouch U-100 (insulin degludec) 36 units (0.36 mL) subcut BEDTIME 30 days NS HPI 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: Details: Start time: 8.15am, End time: 9am ?I spent 40 minutes speaking with the patient on the phone plus an additional 5 minutes reviewing and updating records for a total of 45 minutes HPI Comments Details: Previous weight loss efforts: Mounjaro: no weight loss, self diets Wakes up: 8am, Sleeps: 11pm Breakfast: skips Lunch: 12pm (sandwich, fast food) Dinner: 7pm (pork, chicken, potatoes, pasta, rice) Smacks: 9pm (occasionally fruit) Exercise: none Fluids: Coffee: none, tea: none, soda: occasionally diet soda, juice: 0 sugar drinks, ETOH: none PFSH Medical History (Updated 02/18/24 @ 08:28 by Jay Duarte MD) Anxiety Depression Insulin dependent diabetes mellitus type IA Morbid obesity Charcot arthropathy Obesity (BMI 30.0-34.9) Microalbuminuria Obesity Vitamin D deficiency HLD (hyperlipidemia) HTN (hypertension) T2DM (type 2 diabetes mellitus) Diabetes type 2, uncontrolled Surgical History H/O foot surgery Hx of eye surgery Hx of shoulder surgery Hx of circumcision Family History Father No problems noted. Mother Diabetes Social History Alcohol intake: never Patient Tobacco Use Status: Never used Tobacco Physical Exam Vital Signs: BMI result Body Mass Index 41.4 Telehealth Telehealth Telehealth Platform: Telephone Location of provider rendering services: practice address Location of patient: address on file Patient Identification confirmed using: Name, : Yes Telehealth method: voice only Patient verbally consented to treatment: Yes Patient verbally consented to billing insurance company: Yes Patient informed of any privacy concerns related to visit: Yes Minutes spent on Phone/Video with Pt.: 45 Assessment & Plan Assessment & Plan (1) Morbid obesity: Code(s): E66.01 - Morbid (severe) obesity due to excess calories Category: Medical Plan: 1.? Plan for lap sleeve gastrectomy. If diaphragmatic or ventral hernias are present at time of surgery, these will be repaired laparoscopically as well. I emphasized the importance of close follow-up, adherence to instructions and good communication. The surgery does not replace the need to change your lifestlyle which is the cause of the obesity problem. The surgery provides the motivation to try again to change your lifestyle, it reduces the appetite and make the transition to a better lifestyle easier and doubles the amount of weight you would lose compared to doing the lifestyle change without the surgery. You will need to be on a liquid diet with protein shakes for 2 weeks before surgery to maximize weight loss and boost your nutritional status to recover better from surgery and also for the first two weeks after surgery to let the stomach heal before we introduce other foods. After the first 2 weeks we will introduce protein bars and soft foods like scrambled eggs, cottage cheese and yogurt and after the 6th week will introduce meat, fish and cooked vegetables in small amounts. Over time you should be able to eat everything in small amounts. Side effects like nausea, vomiting, heartburn or abdominal pain are not common in the practice unless you are not following in the practice. This operation requires lifetime commitment to following in our practice and communication with me. You will much less weight and experience side effects if you don?t communicate or not following in the practice. Complications are rare and in our practice is about 1/10 of the national average. However, you can develop bleeding that may require transfusion (hasn?t happened for year in the practice), you may from complications (we did not have any deaths in the practice) and infections. Infections are usually a result of breakdown in communication or not understanding or following directions correctly. They are difficult to treat, they can happen during the first 6 weeks, they may require to be in the hospital for weeks or even months, not being able to eat by mouth and you may have drains and surgeries to try and correct the issue. Other risks and complications include possible conversion to an open procedure, leaks, small bowel obstruction, blood clots, cardiac, or pulmonary complications, as remote computer terminal operator complications such as ulcers, insufficient weight loss and vitamin deficiencies. 2. You will receive a link of our software rosi to generate an individualized nutritional and exercise plan specific for you. Please send me a screenshot of the plans you will generate Meal to include lean meat (beef, fish, pork, turkey, chicken), or lao yogurt, or egg whites, or beans with a salad with olive oil and fruits (berries, pears, apples, kiwi). Avoid salt, breads, potatoes, rice, pasta, desserts. ?3. If you choose shakes, each shake would be drunk slowly, like coffee in a period of 2 hours. ?4. If you choose bars, cut each bar in 4 pieces and eat each piece in 30min ?to make each bar last 2 hours. ?5. I emphasized the importance of measuring accurately the food portion and measure it when serving the food in plate ?6. The meal portions include a specific number of forks of meat and salad. You always eat the meat portion but you can replace up to half of salad/vegetables portion with rice, potatoes or pasta, or a fruit ?if you like. The less you do it the better weight loss will be. ?7. One full-size fork is what it can be scooped on the fork without falling aside and not what can be bit with the fork. Use regular forks like those you find in a typical restaurant. ?8.? Please buy the body composition scale we discussed and send me weight measurements as soon as possible and then once a week. Always include your diet and exercise plan. 9. The best choice would be to purchase a stationary bike, elliptical or treadmill at home that can track calories. Let me know if you do so I can give you an exercise plan. ?10.?Goal is to lose at least 1.5-2lbs per week ?11. Goal to lose 10% of your weight before surgery, which is about 30lbs. Ultimate weight goal: 270lbs before surgery 12. Please follow the diet plan exactly without any change. If you don't like something about the plan or you feel hungry you need to communicate with me so I can help you revise the plan. You should not change the plan yourself. 13. To be scheduled for EGD due to the history of sleeve gastrectomy and anemia. The possibility of biopsies was discussed. Patient needs to avoid use of NSAIDs and aspirin for 1 week prior to EGD. You must be on liquids only the day before your endoscopy. Risks of perforation and bleeding was discussed with the patient. This will be an outpatient procedure with IV sedation. Orders: Orders Hemoglobin A1c 02/18/24 E10.9 - Type 1 diabetes mellitus without complications, E66.01 - Morbid (severe) obesity due to excess calories, E78.5 - Hyperlipidemia, unspecified, I10 - Essential (primary) hypertension Lipid Panel 02/18/24 E10.9 - Type 1 diabetes mellitus without complications, E66.01 - Morbid (severe) obesity due to excess calories, E78.5 - Hyperlipidemia, unspecified, I10 - Essential (primary) hypertension Vitamin B12 and Folate 02/18/24 E10.9 - Type 1 diabetes mellitus without complications, E66.01 - Morbid (severe) obesity due to excess calories, E78.5 - Hyperlipidemia, unspecified, I10 - Essential (primary) hypertension C Reactive Protein 02/18/24 E10.9 - Type 1 diabetes mellitus without complications, E66.01 - Morbid (severe) obesity due to excess calories, E78.5 - Hyperlipidemia, unspecified, I10 - Essential (primary) hypertension Vitamin B1 02/18/24 E10.9 - Type 1 diabetes mellitus without complications, E66.01 - Morbid (severe) obesity due to excess calories, E78.5 - Hyperlipidemia, unspecified, I10 - Essential (primary) hypertension Vitamin A 02/18/24 E10.9 - Type 1 diabetes mellitus without complications, E66. 01 - Morbid (severe) obesity due to excess calories, E78.5 - Hyperlipidemia, unspecified, I10 - Essential (primary) hypertension TSH reflex Free T4 02/18/24 E10.9 - Type 1 diabetes mellitus without complications, E66.01 - Morbid (severe) obesity due to excess calories, E78.5 - Hyperlipidemia, unspecified, I10 - Essential (primary) hypertension Vitamin D 25-OH Total 02/18/24 E10.9 - Type 1 diabetes mellitus without complications, E66.01 - Morbid (severe) obesity due to excess calories, E78.5 - Hyperlipidemia, unspecified, I10 - Essential (primary) hypertension US abdomen comp w elastography 02/18/24 E10.9 - Type 1 diabetes mellitus without complications, E66.01 - Morbid (severe) obesity due to excess calories, E78.5 - Hyperlipidemia, unspecified, I10 - Essential (primary) hypertension Insulin 02/18/24 E10.9 - Type 1 diabetes mellitus without complications, E66.01 - Morbid (severe) obesity due to excess calories, E78.5 - Hyperlipidemia, unspecified, I10 - Essential (primary) hypertension H Pylori Breath Test 02/18/24 E10.9 - Type 1 diabetes mellitus without complications, E66.01 - Morbid (severe) obesity due to excess calories, E78.5 - Hyperlipidemia, unspecified, I10 - Essential (primary) hypertension Complete Blood Count Auto Diff 02/18/24 E10.9 - Type 1 diabetes mellitus without complications, E66.01 - Morbid (severe) obesity due to excess calories, E78.5 - Hyperlipidemia, unspecified, I10 - Essential (primary) hypertension IRON PROFILE 02/18/24 E10.9 - Type 1 diabetes mellitus without complications, E66.01 - Morbid (severe) obesity due to excess calories, E78.5 - Hyperlipidemia, unspecified, I10 - Essential (primary) hypertension Comprehensive Met. Panel 02/18/24 E10.9 - Type 1 diabetes mellitus without complications, E66.01 - Morbid (severe) obesity due to excess calories, E78.5 - Hyperlipidemia, unspecified, I10 - Essential (primary) hypertension Zinc 02/18/24 E10.9 - Type 1 diabetes mellitus without complications, E66.01 - Morbid (severe) obesity due to excess calories, E78.5 - Hyperlipidemia, unspecified, I10 - Essential (primary) hypertension Ferritin 02/18/24 E10.9 - Type 1 diabetes mellitus without complications, E66.01 - Morbid (severe) obesity due to excess calories, E78.5 - Hyperlipidemia, unspecified, I10 - Essential (primary) hypertension XR chest 2V 02/18/24 E10.9 - Type 1 diabetes mellitus without complications, E66.01 - Morbid (severe) obesity due to excess calories, E78.5 - Hyperlipidemia, unspecified, I10 - Essential (primary) hypertension ECG 12 lead EKG 02/18/24 E10.9 - Type 1 diabetes mellitus without complications, E66.01 - Morbid (severe) obesity due to excess calories, E78.5 - Hyperlipidemia, unspecified, I10 - Essential (primary) hypertension FL upper GI w air 02/18/24 E10.9 - Type 1 diabetes mellitus without complications, E66.01 - Morbid (severe) obesity due to excess calories, E78.5 - Hyperlipidemia, unspecified, I10 - Essential (primary) hypertension Referrals Behavioral Health Referral E10.9 - Type 1 diabetes mellitus without complications, E66.01 - Morbid (severe) obesity due to excess calories, E78.5 - Hyperlipidemia, unspecified, I10 - Essential (primary) hypertension Nutrition/Dietitian Referral E10.9 - Type 1 diabetes mellitus without complications, E66.01 - Morbid (severe) obesity due to excess calories, E78.5 - Hyperlipidemia, unspecified, I10 - Essential (primary) hypertension
[2024-02-18 08:36] VITALS: BMI 41.4
== END 2024-02-19 00:16 | disposition home or self-care (01) ==
LOC: HO.HBS 08:01
PROVIDERS: PCP Internal Medicine; Visit Provider Surgery
DX: E66.813 Obesity, class 3 (principal); Z68.41 Body mass index [BMI] 40.0-44.9, adult
CPT/HCPCS: 99204

== ENCOUNTER → 2024-02-18 08:01 | Outpatient (BNVA) | payer OTHER, BC, SELFPAY | PROVIDERS: PCP Internal Medicine; Visit Provider Surgery ==

== ENCOUNTER 2024-02-29 10:17 | Outpatient (AMB) | payer OTHER, BC, SELFPAY ==
--- NOTE | 2024-02-29 10:00 | A.OFFWM_ITS ---
Intake Intake Visit Reasons: VIDEO Intake Allergies Proventil Allergy (Unknown, Uncoded 02/18/24 08:21) rash [facility] Medical History (Updated 03/14/24 @ 11:18 by Kevin Bolanos MD) Anxiety Depression Insulin dependent diabetes mellitus type IA Morbid obesity Charcot arthropathy Obesity (BMI 30.0-34.9) Microalbuminuria Obesity Vitamin D deficiency HLD (hyperlipidemia) HTN (hypertension) T2DM (type 2 diabetes mellitus) Diabetes type 2, uncontrolled Surgical History H/O foot surgery Hx of eye surgery Hx of shoulder surgery Hx of circumcision Family History Father No problems noted. Mother Diabetes Social History Alcohol intake: never Patient Tobacco Use Status: Never used Tobacco Behavioral Health Assessment Weight Management Therapy Therapy Notes Details PT is a 38-year-old male presenting for an initial visit to complete a behavioral health assessment as part of the surgical weight loss program. Presenting Concerns Referral Source WMP-Provider. Reason for referral Completion of behavioral health assessment as part of process for weight-loss surgery. Precipitating Event Obesity. Living Situation Current Living Situation Rent At risk of losing current housing? No Satisfied with current living situation? No (wants to move ) Comments PT lives with his . Social History Family history and relationship PT has been since 2014. they don't have children, He has 1 sister. Mother lives in [place] and dad lives in the area. PT reports good family relationships. He has some family members in the area that he's close with, such as grandfather and an aunt. 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 Developmental history and status He had some trouble concentrating in bigger classrooms while in elementary school, so he received more one-on-one support in small groups. Currently WNL. Social support , father, sister, grandfather and aunt who live in the area. In-laws as they are financially stable and emotionally supportive of any of his 's needs. If needs physical support his sister and father's are very supportive. Community support Has PCP, and some specialists to treat medical issues. some cousins in the area. Holiness/Spirituality Yazdanism. Doesn't practice. Cultural/Ethnic information . PT was born in [place]. Moved to [place] early in life. Legal Involvement and History Current or historical involvement with the legal system? None reported. Education Highest grade completed HS. Preferred learning style Learn by doing Currently enrolled in educational program? No Interested in further educational program? 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 Wants to have a job with better benefits, probably a state job. 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 ) Wants help to find employment? No Meaningful activities Collect cards, Play videogames, Go to the movies. Used to play basketball. Financial Situation Describe current financial situation Occasional struggle Financial assistance? Food Center, Disability (From ) and Other (housing assistance. ) Service Service? No Mental Health and Addiction Treatment Current/Past substance abuse? No Comments Alcohol: None Cigarettes/Tobacco: None. Cannabis/Edibles: None. Current/Past addictive behavior concerns? No Psychiatric history PT reports that he has never participated in therapy or counseling and denies any history of mental health crises or inpatient care. He has no current concerns regarding suicidal ideation (SI), suicidal attempts (SA), self-harm, or harm to others. A couple of years ago, his PCP prescribed him Sertraline 50mg. PT attributes increased stress to his ?s medical issues, specifically the onset of seizures after their marriage. Medical and Physical Health Summary Additional Medical History not covered in history None additional Sexual History concerns None reported Physical exam in the last year? No Pain Screening Current pain? No Pain in the last few months? Yes Comments Shoulder pain, he had surgery couple years ago. Back, knee pains. Medications Is the patient compliant with medications? Yes Does the patient have Xiao Guardian in place? Not applicable Does the patient use complimentary health approaches? No Trauma/Abuse History History of trauma? No Questionnaires PHQ-9 Over the last 2 weeks, how often have you been bothered by any of the following problems? 1. Little interest or pleasure in doing things: several days 2. Feeling down, depressed, or hopeless: several days 3. Trouble falling or staying asleep, or sleeping too much: several days 4. Feeling tired or having little energy: several days 5. Poor appetite or overeating: several days 6. Feeling bad about yourself - or that you are a failure or have let yourself or your family down: several days 7. Trouble concentrating on things, such as reading the newspaper or watching television: several days 8. Moving or speaking so slowly that other people could have noticed. Or the opposite - being so fidgety or restless that you have been moving around a lot more than usual: not at all 9. Thoughts that you would be better off or of hurting yourself in some way: not at all Total score: 7 Depression Screening Interpretation: Positive (From new Pt pack. ) Depression Screening Done: Yes Source: Developed by Drs. Madan Green, Erica Gatica, Gunnar Amaro and colleagues, with an educational thuy from [employer]. Binge Eating Scale Group 1 A. I don't feel self-conscious about my wt. or body size when I'm with others. B. I feel concerned about how I look to others, but it normally does not make me fell disappointed with myself C. I do get self-conscious about my appearance and wt. which makes me feel disappointed in myself. D. I feel very self-conscious about my wt. and frequently I feel intense shame and disgust for myself. I try to avoid social contacts because of my self- consciousness. Response Group 1: D Group 2 A. I don't have any difficulty eating slowly in the proper manner. B. Although I seem to gobble down foods, I don't end up feeling stuffed because of eating to much. C. At times, I tend to eat quickly and then, I feel uncomfortably full afterwards. D. I have the habit of bolting down my food, without really chewing it. When this happens I usually feel uncomfortably stuffed because I've eaten to much. Response Group 2: C Group 3 A. I feel capable to control my eating urges when I want to. B. I feel like I have failed to control my eating more than the average person. C. I feel utterly helpless when it comes to feeling in control of my eating urges. D. Because I feel so helpless about controlling my eating I have become very desperate about trying to get control. Response Group 3: B Group 4 A. I don't have the habit of eating when I'm bored. B. I sometimes eat when I'm bored, but often I'm able to get busy and get my mind off food. C. I have a regular habit of eating when I'm bored, but occasionally, I can use some other activity to get my mind off eating. D. I have a strong habit of eating when I'm bored. Nothing seems to help me breath the habit. Response Group 4: B Group 5 A. I'm usually physically hungry when I eat something. B. Occasionally, I eat something on impulse even though I really am not hungry. C. I have the regular habit of eating foods, that I might not really enjoy, to satisfy a hungry feeling even though physically, I don't need the food. D. Although I'm not physically hungry, I get a hungry feeling in my mouth that only seems to be satisfied when I eat a food, like sandwich, that fills my mouth. Sometimes, when I eat the food to satisfy my mouth hunger, I then spit the food out so I won't gain weight. Response Group 5: B Group 6 A. I don't feel any guilt or self-hate after I overeat. B. After I overeat, occasionally I feel guilt or self-hate. C. Almost all the time I experience strong guilt or self-hate after I overeat. Response Group 6: B Group 7 A. I don't lose total control of my eating when dieting even after periods when I overeat. B. Sometimes when I eat a forbidden food on a diet, I feel like I blew it and eat even more. C. Frequently, I have the habit of saying to myself, I've blown it now, why not go all the way, when I overeat on a diet. When that happens I eat more. D. I have a regular habit of starting a strict diets for myself but I break the diets by going on an eating binge. My life seems to be either a feast or famine. Response Group 7: B Group 8 A. I rarely eat so much food that I feel uncomfortably stuffed afterwards. B. Usually about once a month, I each such a quantity of food, I end up feeling very stuffed. C. I have regular periods during the month when I eat large amounts of food, either at mealtime or at snacks. D. I eat so much food that I regularly feel quite uncomfortable after eating and sometimes a bit nauseous. Response Group 8: A Group 9 A. My level of calorie intake does not go up very high or go down very low on a regular basis. B. Sometimes after I overeat, I will try to reduce my caloric intake to almost nothing to compensate for the excess calories I've eaten. C. I have a regular habit of overeating during the night. It seems that my routine is not to be hungry in the morning but overeat in the evening. D. In my adult years, I have had week-long periods where I practically starve myself. This follows periods when I overeat. It seems I live a life of either feast or famine. Response Group 9: B Group 10 A. I usually am able to stop eating when I want to. I know when enough is enough. B. Every so often, I experience a compulsion to eat which I can't seem to control. C. Frequently, I experience strong urges to eat which I seem unable to control, but at other times I can control my eating urges. D. I feel incapable of controlling urges to eat. I have a fear of not being able to stop eating voluntarily. Response Group 10: A Group 11 A. I don't have any problem stopping eating when I feel full. B. I usually can stop eating when I feel full but occasionally overeat leaving me feeling uncomfortably stuffed. C. I have a problem stopping eating once I start and usually I feel uncomfortably stuffed after I eat a meal. D. Because I have a problem not being able to stop eating when I want, I sometimes have to induce vomiting to relieve my stuffed feeling. Response Group 11: B Group 12 A. I seem to eat just as much when I'm with others, Family social gatherings as when I'm by myself. B. Sometimes, when I'm with other persons, I don't eat as much as I want to eat because I'm self-conscious about my eating. C. Frequently, I eat only a small amount of food when others are present, because I'm very embarrassed about my eating. D. I feel so ashamed about overeating that I pick times to overeat when I know no one will see me. I feel like a closet eater. Response Group 12: B Group 13 A. I eat three meals a day with only an occasional between meal snack. B. I eat 3 meals a day, but I also normally snack between meals. C. When I am snacking heavily, I get in the habit of skipping regular meals. D. There are regular periods when I seem to be continually eating, with no planned meals. Response Group 13: C Group 14 A. I don't think much about trying to control unwanted eating urges. B. At least some of the time, I feel my thoughts are pre-occupied with trying to control my eating urges. C. I feel that frequently I spend much time thinking about how much I ate or about trying not to eat anymore. D. It seems to me that most of my waking hours are pre-occupied by thoughts about eating or not eating. I feel like I'm constantly struggling not to eat. Response Group 14: B Group 15 A. I don't think about food a great deal. B. I have strong craving for food but they last only for brief periods of time. C. I have days when I can't seem to think about anything else but food. D. Most of my days seem to be pre-occupied with thoughts about food. I feel like I live to eat. Response Group 15: A Group 16 A. I usually know whether or not I'm physically hungry. I take the right portion of food to satisfy me. B. Occasionally, I feel uncertain about knowing whether or not I'm physically hungry. A these times it's hard to know how much food I should take to satisfy me. C. Even though I might know how many calories I should eat, I don't have any idea what is a normal amount of food for me. Response Group 16: B Binge Eating Score: 17 Score less than 17 Minimal Risk Score between 18-26 Moderate Risk Score between 27-46 High Risk Assessment & Plan Assessment & Plan (1) Adjustment disorder with anxiety: Code(s): F43.22 - Adjustment disorder with anxiety Plan PT will return on at 10:00 AM via Telehealth to continue the assessment. A new PHQ-9 will be administered to accurately assess her current emotional state. Telehealth Telehealth Telehealth Platform: [employer] Location of provider rendering services: other Location of patient: address on file Patient Identification confirmed using: Name, : Yes Telehealth method: video Patient verbally consented to treatment: Yes Patient verbally consented to billing insurance company: Yes Patient informed of any privacy concerns related to visit: Yes Minutes spent on Phone/Video with Pt.: 60 Coding Level of Care Code New Pt Tele Psy Diag Eval (11514) Patient Type New Diagnoses Adjustment disorder with anxiety F43.22
== END 2024-02-29 11:00 | disposition home or self-care (01) ==
LOC: HO.HBST 10:17
PROVIDERS: PCP Internal Medicine; Visit Provider Counselor Mental Health
DX: F43.22 Adjustment disorder with anxiety (principal)
CPT/HCPCS: 90791

== ENCOUNTER → 2024-02-29 10:17 | Outpatient (BNVA) | payer OTHER, BC, SELFPAY | PROVIDERS: PCP Internal Medicine; Visit Provider Counselor Mental Health ==

== ENCOUNTER 2024-03-14 10:55 | Outpatient (AMB) | payer OTHER, SELFPAY ==
[2024-03-14 11:05] VITALS: BP 112/70; PULSE 94; O2SAT 96; BMI 41.4
--- NOTE | 2024-03-14 11:05 | HO.NEPHOV_ITS ---
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 Required: No Accompanied by: Self / Same As Patient Allergies Proventil Allergy (Unknown, Uncoded 02/18/24 08:21) rash Medication List - Last Reconciled 03/14/24 by Kevin Bolanos MD amlodipine 10 mg PO DAILY atorvastatin 80 mg PO DAILY blood sugar diagnostic (FreeStyle Lite Strips) As directed tests 4X/day blood-glucose meter (FreeStyle Lite Meter kit) As directed blood-glucose meter (FreeStyle Lite Meter kit) As directed checks 4 X/day blood-glucose sensor (FreeStyle Viky 3 Sensor device) As directed change every 14 days chlorthalidone 25 mg PO DAILY cholecalciferol (vitamin D3) (Vitamin D3) 50 mcg PO DAILY 90 days empagliflozin (Jardiance) 25 mg PO DAILY 30 days insulin needles (disposable) As directed lancets (FreeStyle Lancets) As directed chacks 4/day lisinopril 40 mg PO DAILY 30 days metformin ER 1,000 mg (2 x 500 mg) PO BID 90 days pen needle, diabetic (BD Ultra-Fine Micro Pen Needle) 1x daily pioglitazone 15 mg PO DAILY sertraline 50 mg PO DAILY tirzepatide (Mounjaro) 10 mg (0.5 mL) subcut QWEEK 28 days Tresiba FlexTouch U-100 (insulin degludec) 36 units (0.36 mL) subcut BEDTIME 30 days NS HPI Comments Details: Sean is a pleasant 38-year-old man with a history of longstanding diabetes mellitus and hypertension who has been referred for evaluation of proteinuria. He has a history of obesity and hyperlipidemia as well. Recent serum creatinine was 1.32 mg/dL. He had about 2.4 g of proteinuria based on the protein creatinine ratio. He is currently on lisinopril as well as SGLT2 inhibitors. 01/31/24 Ran out of Jardiance and Lisinopril 40 mg QD for 2 weeks 03/14/24 Lost 5 lbs on wt management program. Waiting for bariatric surgery [facility] Medical History (Updated 03/14/24 @ 11:18 by Kevin Bolanos MD) Anxiety Depression Insulin dependent diabetes mellitus type IA Morbid obesity Charcot arthropathy Obesity (BMI 30.0-34.9) Microalbuminuria Obesity Vitamin D deficiency HLD (hyperlipidemia) HTN (hypertension) T2DM (type 2 diabetes mellitus) Diabetes type 2, uncontrolled Surgical History H/O foot surgery Hx of eye surgery Hx of shoulder surgery Hx of circumcision Family History Father No problems noted. Mother Diabetes Social History Alcohol intake: never Patient Tobacco Use Status: Never used Tobacco Physical Exam Vital Signs: Last Vital Signs Pulse 94 03/14/24 11:05 BP 112/70 03/14/24 11:05 Pulse Ox 96 03/14/24 11:05 Oxygen Delivery Method Room Air 03/14/24 11:05 BMI result Body Mass Index 41.4 Results Reviewed Nephrology Results: Hgb 12.1 g/dl (14.0-18.0) L 02/01/24 WBC 11.8 X10*3/uL (4.8-10.8) H 02/01/24 Plt Count 251 X10*3/uL (160-400) 02/01/24 Sodium 141 mmol/L (135-145) 02/01/24 Potassium 4.3 mmol/L (3.3-5.1) 02/01/24 Chloride 108 mmol/L (96-108) 02/01/24 Carbon Dioxide 28 mmol/L (22-29) 02/01/24 BUN 41 mg/dL (9-16) H 02/01/24 Creatinine 1.81 mg/dL (0.5-1.4) H 02/01/24 Calcium 8.5 mg/dL (8.4-10.2) 02/01/24 Urine Protein 300 (3+) mg/dL (Neg-Trace) H 02/01/24 Urine Creatinine 76.94 mg/dL 02/01/24 Assessment & Plan Assessment & Plan (1) T2DM (type 2 diabetes mellitus): Code(s): E11.9 - Type 2 diabetes mellitus without complications Category: Medical Qualifiers: Diabetes mellitus assisted insulin use: without assisted use Diabetes mellitus complication status: with hyperglycemia Qualified Code(s): E11.65 - Type 2 diabetes mellitus with hyperglycemia (2) HTN (hypertension): Code(s): I10 - Essential (primary) hypertension Category: Medical Qualifiers: Hypertension type: unspecified Qualified Code(s): I10 - Essential (primary) hypertension Damian Estrada is a 38-year-old man with a history of longstanding hypertension diabetes mellitus and obesity who has mild CKD with nephrotic range proteinuria. He probably has underlying diabetic nephropathy. Non diabetic causes seem unlikely at this point He had mild CKD probably CKD stage 2 with a serum creatinine of 1.32. in May 2023 Repeat cr was 1.8 in Nov 2023 Recent renal ultrasonogram was unremarkable and there was no obstruction. Serological workup was unremarkable Bump most likely due to hypoperfusion Will STOP Chlorthalidone Goal is to slow the progression of renal disease. Maintain A1c less than 7% Maintain blood pressure less than 130/80 Continue to avoid nephrotoxic agents including NSAIDs. Discussed importance of weight loss. Agree with both LEVI inhibitors and SGLT2 inhibitors for cardiorenal protection. Encouraged him to stay on low-sodium diet. He had mild anemia in the past. 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
== END 2024-03-14 11:19 | disposition home or self-care (01) ==
PROVIDERS: PCP Internal Medicine; Visit Provider Internal Medicine Hypertension Specialist
DX: E11.65 Type 2 diabetes mellitus with hyperglycemia (principal); I12.9 Hypertensive chronic kidney disease with stage 1 through stage 4 chronic kidney disease, or unspecified chronic kidney disease; E11.22 Type 2 diabetes mellitus with diabetic chronic kidney disease; N18.2 Chronic kidney disease, stage 2 (mild)
CPT/HCPCS: 99214

== ENCOUNTER → 2024-03-14 10:55 | Outpatient (BNVA) | payer OTHER, SELFPAY | PROVIDERS: PCP Internal Medicine; Visit Provider Internal Medicine Hypertension Specialist | DX: E11.65 Type 2 diabetes mellitus with hyperglycemia (principal); E11.22 Type 2 diabetes mellitus with diabetic chronic kidney disease; I12.9 Hypertensive chronic kidney disease with stage 1 through stage 4 chronic kidney disease, or unspecified chronic kidney disease; R80.9 Proteinuria, unspecified; N18.9 Chronic kidney disease, unspecified | CPT/HCPCS: 99212 ==

== ENCOUNTER 2024-03-15 09:27 | Outpatient (REF) | payer OTHER, SELFPAY ==
--- NOTE | ~2024-03-15 | US_ITS ---
EXAMINATION: US ABDOMEN COMPLETE WITH LIVER ELASTOGRAPHY HISTORY: E66.01 - Morbid (severe) obesity due to excess calories TECHNIQUE: Real-time grayscale ultrasound imaging of the abdomen was performed and images were reviewed. COMPARISON: There are no prior studies for comparison. FINDINGS: Liver: The liver is normal in size and demonstrates homogeneous echotexture. No focal mass or intrahepatic biliary ductal dilatation is identified. There is normal hepatopedal flow in the portal vein. Ultrasound elastography of the liver was performed with 10 separate measurements of the liver parenchyma with the patient in the supine position. Measurements were obtained approximately 2 cm below Teena's capsule and perpendicular to the capsule. Images are of satisfactory quality. The median shear wave velocity is 1.15 m/s. The interquartile range/median (IQR/median) is 0.14. Gallbladder and biliary tree: The gallbladder is unremarkable, without evidence of calculi, wall thickening, or pericholecystic fluid. There is no sonographic Alonso sign. The common bile duct is normal in caliber measuring 4 mm. Kidneys: The right kidney measures 12.5 cm in length. The left kidney measures 13.0 cm in length. There is a 1.4 cm cyst at the lower pole of the left kidney. The kidneys are otherwise unremarkable, without evidence of solid masses, hydronephrosis, or calculi. Pancreas: The pancreas is obscured by bowel gas. Spleen: The spleen is normal in size and contour, measuring 12.2 cm in length. Abdominal aorta and inferior vena cava: The visualized portions of the abdominal aorta and inferior vena cava are normal in caliber. There is no free fluid in the abdomen. US/US abdomen comp w elastography IMPRESSION: Unremarkable abdominal ultrasound. The median shear wave velocity is 1.15 m/s, corresponding to a median liver stiffness of 4.00 kPa. The IQR/median value is 0.14. This is indicative of a quality data set. Findings are indicative of a normal elastography value with a low likelihood of severe fibrosis or cirrhosis. REFERENCE: Society of Radiologists in Ultrasound Liver Stiffness Thresholds (2019): LIVER STIFFNESS THRESHOLDS: *Shear wave velocity less than 1.3 m/s (Liver Stiffness equal or less than 5 kPa): High probability of being normal. *Shear wave velocity less than 1.7 m/s (Liver Stiffness less than 9 kPa): In the absence of other known clinical signs, rules out compensated advanced chronic liver disease. *Shear wave velocity between 1.7-2.1 m/s (Liver Stiffness 9-13 kPa): Suggestive of compensated advanced chronic liver disease but need further test for confirmation. *Shear wave velocity between 2.1-2.4 m/s (Liver Stiffness 13-17 kPa): Rules in compensated advanced chronic liver disease. *Shear wave velocity greater than 2.4 m/s (Liver Stiffness over 17 kPa): Suggestive of clinically significant portal hypertension. QUALITY OF DATA SET: *IQR/Median value equal or less than 0.15 implies a quality data set. *IQR/Median value over 0.15 implies a poor quality data set. SIGNIFICANT CHANGE FROM PRIOR EXAM: Significant change if liver stiffness measurement is 10% or greater from prior exam. OTHER CONSIDERATIONS: The stage of liver fibrosis may be overestimated in the setting of acute hepatitis, liver inflammation, elevated liver function tests, hepatic vascular congestion, obstructive cholestasis, non-fasting state, and infiltrative diseases such as amyloidosis and lymphoma. In some patients with NAFLD, the liver stiffness thresholds for compensated advanced chronic liver disease may be lower. In causes other than viral hepatitis and NAFLD, liver stiffness thresholds are not well established. Electronically signed by: Madan Herman MD 03/15/2024 02:29 PM [facility]
== END 2024-03-15 09:28 | disposition home or self-care (01) ==
LOC: HO.US 09:27
PROVIDERS: PCP Internal Medicine; Visit Provider Surgery
DX: E66.01 Morbid (severe) obesity due to excess calories (principal); E10.9 Type 1 diabetes mellitus without complications; E78.5 Hyperlipidemia, unspecified; I10 Essential (primary) hypertension
CPT/HCPCS: 76700; 76981

== ENCOUNTER → 2024-03-15 09:30 | Outpatient (BNV) | payer OTHER, SELFPAY | PROVIDERS: PCP Internal Medicine; Visit Provider Radiology Diagnostic Radiology | DX: E66.01 Morbid (severe) obesity due to excess calories (principal); Z68.41 Body mass index [BMI] 40.0-44.9, adult | CPT/HCPCS: 76700 ==

== ENCOUNTER 2024-03-23 10:12 | Outpatient (AMB) | payer OTHER, SELFPAY ==
--- NOTE | 2024-03-23 10:10 | MHC.WMTHER ---
Intake Intake Visit Reasons: VIDEO BH F/U Allergies Proventil Allergy (Mild, Uncoded 04/27/24 15:42) rash [facility] Medical History (Updated 04/27/24 @ 16:00 by Yuni Stephens NP) Acute bacterial pharyngitis Anxiety Depression Insulin dependent diabetes mellitus type IA Morbid obesity Charcot arthropathy Obesity (BMI 30.0-34.9) Microalbuminuria Obesity Vitamin D deficiency HLD (hyperlipidemia) HTN (hypertension) T2DM (type 2 diabetes mellitus) Diabetes type 2, uncontrolled Surgical History H/O foot surgery Hx of eye surgery Hx of shoulder surgery Hx of circumcision Family History Father No problems noted. Mother Diabetes Social History Are you a primary urgent care nurse practitioner to a significant other at home: No Do you presently have visiting nurse or other home services: No Alcohol intake: never Patient Tobacco Use Status: Never used Tobacco Behavioral Health Assessment Weight Management Therapy Therapy Notes Details The patient is a 38-year-old male seeking behavioral health assessment as part of the surgical weight loss program. He is motivated to undergo weight-loss surgery to improve his health and overall quality of life. The patient reports experiencing increased stress and symptoms of depression but has never previously engaged in therapy or counseling. He denies any history of mental health crises, inpatient psychiatric care, or significant psychiatric interventions. Currently, he denies suicidal ideation (SI), suicidal attempts (SA), self-harm, or harm to others. The patient is prescribed Sertraline 50mg by his primary care physician, which he reports taking as directed. He attributes the heightened stress primarily to his ?s medical issues, specifically the onset of seizures following their marriage, which has contributed to a strain in his emotional well-being. Presenting Concerns Referral Source WMP-Provider. Reason for referral Completion of behavioral health assessment as part of process for weight-loss surgery. Precipitating Event Obesity. Living Situation Current Living Situation Rent At risk of losing current housing? No Satisfied with current living situation? No (wants to move ) Comments PT lives with his . Food/Weight/Diet Expectations of change The initial Goal to lose 10% of his weight before surgery, which is about 30lbs. Ultimate weight goal: 270lbs before surgery. PT started the program in January 2024 at 305 lbs. The most recent weight as of today, 03/23/2024, was 305 lbs. PT is implementing the following: Current meal plan: On and off. He has created a plan using the right BMI website. He has a combination of shakes, bars, and one meal a day (dinner). Exercise plan: Walking when at work. He got a walking pad but not using it. He also has a gym membership that is not using. Scale: yes. History/Relationship with food PT reports he enjoys food, and he eats a lot of fast and fried food out of convenience. PT reports he's picky in terms of healthier options and doesn't eat veggies, and there are a lot of foods he hasn't eaten that are healthy. Example of meals before starting the program: Breakfast: Skip most of the time. Lunch: @12-2pn. Fast food like [employer]enny's, and [employer] 2-3 times a week. other days would skip and wait until getting home. Dinner: homemade. Usually pasta in any form with meat. Snacks: fruits (grapes, apples, oranges, strawberries, bananas) Drinks/Liquids: 1 can 1-2 times at week, crystal light, 2 water bottles at day History/Relationship with weight PT reports he has been around In the last 10 years, the patient's Lowest weight was 198Lbs and his highest 305Lbs, however the last couple years he was in between 250-270 lbs, but in the last year is when he reached the 300 lbs. patricia. Social History Family history and relationship PT has been since 2014. they don't have children, He has 1 sister. Mother lives in [place] and dad lives in the area. PT reports good family relationships. He has some family members in the area that he's close with, such as grandfather and an aunt. 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 Developmental history and status He had some trouble concentrating in bigger classrooms while in elementary school, so he received more one-on-one support in small groups. Currently [facility]. Social support , father, sister, grandfather and aunt who live in the area. In-laws as they are financially stable and emotionally supportive of any of his 's needs. If needs physical support his sister and father's are very supportive. Community support Has PCP, and some specialists to treat medical issues. some cousins in the area. Yarsanism/Spirituality Alevism. Doesn't practice. Cultural/Ethnic information . PT was born in [place]. Moved to [place] early in life. Legal Involvement and History Current or historical involvement with the legal system? None reported. Education Highest grade completed HS. Preferred learning style Learn by doing Currently enrolled in educational program? No Interested in further educational program? 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 Wants to have a job with better benefits, probably a state job. 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 ) Wants help to find employment? No Meaningful activities Collect cards, Play videogames, Go to the movies. Used to play basketball. Financial Situation Describe current financial situation Occasional struggle Financial assistance? Food [place], Disability (From ) and Other (housing assistance. ) Service Service? No Mental Health and Addiction Treatment Current/Past substance abuse? No Comments Alcohol: None Cigarettes/Tobacco: None. Cannabis/Edibles: None. Current/Past addictive behavior concerns? No Psychiatric history PT reports that he has never participated in therapy or counseling and denies any history of mental health crises or inpatient care. He has no current concerns regarding suicidal ideation (SI), suicidal attempts (SA), self-harm, or harm to others. A couple of years ago, his PCP prescribed him Sertraline 50mg. PT attributes increased stress to his ?s medical issues, specifically the onset of seizures after their marriage. Medical and Physical Health Summary Additional Medical History not covered in history None additional Sexual History concerns None reported Physical exam in the last year? No Pain Screening Current pain? No Pain in the last few months? Yes Comments Shoulder pain, he had surgery couple years ago. Back, knee pains. Medications Is the patient compliant with medications? Yes Does the patient have Xiao Guardian in place? Not applicable Does the patient use complimentary health approaches? No Trauma/Abuse History History of trauma? No Questionnaires Binge Eating Scale Group 1 A. I don't feel self-conscious about my wt. or body size when I'm with others. B. I feel concerned about how I look to others, but it normally does not make me fell disappointed with myself C. I do get self-conscious about my appearance and wt. which makes me feel disappointed in myself. D. I feel very self-conscious about my wt. and frequently I feel intense shame and disgust for myself. I try to avoid social contacts because of my self-consciousness. Response Group 1: D Group 2 A. I don't have any difficulty eating slowly in the proper manner. B. Although I seem to gobble down foods, I don't end up feeling stuffed because of eating to much. C. At times, I tend to eat quickly and then, I feel uncomfortably full afterwards. D. I have the habit of bolting down my food, without really chewing it. When this happens I usually feel uncomfortably stuffed because I've eaten to much. Response Group 2: C Group 3 A. I feel capable to control my eating urges when I want to. B. I feel like I have failed to control my eating more than the average person. C. I feel utterly helpless when it comes to feeling in control of my eating urges. D. Because I feel so helpless about controlling my eating I have become very desperate about trying to get control. Response Group 3: B Group 4 A. I don't have the habit of eating when I'm bored. B. I sometimes eat when I'm bored, but often I'm able to get busy and get my mind off food. C. I have a regular habit of eating when I'm bored, but occasionally, I can use some other activity to get my mind off eating. D. I have a strong habit of eating when I'm bored. Nothing seems to help me breath the habit. Response Group 4: B Group 5 A. I'm usually physically hungry when I eat something. B. Occasionally, I eat something on impulse even though I really am not hungry. C. I have the regular habit of eating foods, that I might not really enjoy, to satisfy a hungry feeling even though physically, I don't need the food. D. Although I'm not physically hungry, I get a hungry feeling in my mouth that only seems to be satisfied when I eat a food, like sandwich, that fills my mouth. Sometimes, when I eat the food to satisfy my mouth hunger, I then spit the food out so I won't gain weight. Response Group 5: B Group 6 A. I don't feel any guilt or self-hate after I overeat. B. After I overeat, occasionally I feel guilt or self-hate. C. Almost all the time I experience strong guilt or self-hate after I overeat. Response Group 6: B Group 7 A. I don't lose total control of my eating when dieting even after periods when I overeat. B. Sometimes when I eat a forbidden food on a diet, I feel like I blew it and eat even more. C. Frequently, I have the habit of saying to myself, I've blown it now, why not go all the way, when I overeat on a diet. When that happens I eat more. D. I have a regular habit of starting a strict diets for myself but I break the diets by going on an eating binge. My life seems to be either a feast or famine. Response Group 7: B Group 8 A. I rarely eat so much food that I feel uncomfortably stuffed afterwards. B. Usually about once a month, I each such a quantity of food, I end up feeling very stuffed. C. I have regular periods during the month when I eat large amounts of food, either at mealtime or at snacks. D. I eat so much food that I regularly feel quite uncomfortable after eating and sometimes a bit nauseous. Response Group 8: A Group 9 A. My level of calorie intake does not go up very high or go down very low on a regular basis. B. Sometimes after I overeat, I will try to reduce my caloric intake to almost nothing to compensate for the excess calories I've eaten. C. I have a regular habit of overeating during the night. It seems that my routine is not to be hungry in the morning but overeat in the evening. D. In my adult years, I have had week-long periods where I practically starve myself. This follows periods when I overeat. It seems I live a life of either feast or famine. Response Group 9: B Group 10 A. I usually am able to stop eating when I want to. I know when enough is enough. B. Every so often, I experience a compulsion to eat which I can't seem to control. C. Frequently, I experience strong urges to eat which I seem unable to control, but at other times I can control my eating urges. D. I feel incapable of controlling urges to eat. I have a fear of not being able to stop eating voluntarily. Response Group 10: A Group 11 A. I don't have any problem stopping eating when I feel full. B. I usually can stop eating when I feel full but occasionally overeat leaving me feeling uncomfortably stuffed. C. I have a problem stopping eating once I start and usually I feel uncomfortably stuffed after I eat a meal. D. Because I have a problem not being able to stop eating when I want, I sometimes have to induce vomiting to relieve my stuffed feeling. Response Group 11: B Group 12 A. I seem to eat just as much when I'm with others, Family social gatherings as when I'm by myself. B. Sometimes, when I'm with other persons, I don't eat as much as I want to eat because I'm self-conscious about my eating. C. Frequently, I eat only a small amount of food when others are present, because I'm very embarrassed about my eating. D. I feel so ashamed about overeating that I pick times to overeat when I know no one will see me. I feel like a closet eater. Response Group 12: B Group 13 A. I eat three meals a day with only an occasional between meal snack. B. I eat 3 meals a day, but I also normally snack between meals. C. When I am snacking heavily, I get in the habit of skipping regular meals. D. There are regular periods when I seem to be continually eating, with no planned meals. Response Group 13: C Group 14 A. I don't think much about trying to control unwanted eating urges. B. At least some of the time, I feel my thoughts are pre-occupied with trying to control my eating urges. C. I feel that frequently I spend much time thinking about how much I ate or about trying not to eat anymore. D. It seems to me that most of my waking hours are pre-occupied by thoughts about eating or not eating. I feel like I'm constantly struggling not to eat. Response Group 14: B Group 15 A. I don't think about food a great deal. B. I have strong craving for food but they last only for brief periods of time. C. I have days when I can't seem to think about anything else but food. D. Most of my days seem to be pre-occupied with thoughts about food. I feel like I live to eat. Response Group 15: A Group 16 A. I usually know whether or not I'm physically hungry. I take the right portion of food to satisfy me. B. Occasionally, I feel uncertain about knowing whether or not I'm physically hungry. A these times it's hard to know how much food I should take to satisfy me. C. Even though I might know how many calories I should eat, I don't have any idea what is a normal amount of food for me. Response Group 16: B Binge Eating Score: 17 Score less than 17 Minimal Risk Score between 18-26 Moderate Risk Score between 27-46 High Risk Assessment & Plan Assessment & Plan (1) Adjustment disorder with anxiety: Code(s): F43.22 - Adjustment disorder with anxiety Plan PT not cleared yet. He will return in 2-3 weeks for follow-up and completion of the assessment. At the next visit, new PHQ-9 will be administered. Next Appointment: Scheduled for 04/11/2024 at 10:00 AM. The appointment will be conducted via video. Telehealth Telehealth Telehealth Platform: [facility] Location of provider rendering services: other Location of patient: address on file Patient Identification confirmed using: Name, : Yes Telehealth method: video Patient verbally consented to treatment: Yes Patient verbally consented to billing insurance company: Yes Patient informed of any privacy concerns related to visit: Yes Minutes spent on Phone/Video with Pt.: 60 Coding Level of Care Code Established Pt Tele Psytx >53 mins (20936) Patient Type Established Diagnoses Adjustment disorder with anxiety F43.22 Time Spent (min) 60
== END 2024-03-23 11:42 | disposition home or self-care (01) ==
LOC: HO.HBST 10:12
PROVIDERS: PCP Internal Medicine; Visit Provider Counselor Mental Health
DX: F43.22 Adjustment disorder with anxiety (principal)
CPT/HCPCS: 90837

== ENCOUNTER 2024-04-25 08:05 | Outpatient (AMB) | payer OTHER, SELFPAY ==
--- NOTE | 2024-04-25 08:06 | AM.OFFWIN_ITS ---
Intake Vital Signs 04/25/24 08:07 Height 6 ft Weight 302 lb BMI 41.0 BP 106/72 Blood Pressure Location Rt brachial Position Sitting Respiration 20 Pulse 104 H Pulse Source Pulse Oximeter Temp 98.9 F Temp Source Oral Pulse Oximetry (%) 99 Intake Visit Reasons: EP flu symptoms Intake Note: Pt is here today for a walk in visit. Pt c/o congestion, can not smell and taste anything, cough for 5 days. Patient Tobacco Use Status: Never used Tobacco Allergies Proventil Allergy (Mild, Uncoded 04/25/24 08:10) rash HPI HPI Comments History of Present Illness Details History - The patient is a 38-year-old male pres enting with suspected COVID-19 infection. - Symptoms began five days ago with a pr esentation similar to a common cold. - Patient developed anosmia and ageusia, suggesting a progressing respiratory condition. - Other reported symptoms include conges tion, wheezing, and mild shortness of breath. - The patient has a significant history of asthma, noting increased wheezing during coughing spells. - Home testing for influenza using an ex pired kit showed negative results, providing little diagnostic certainty. - Current symptomatic management include s OTC cough and cold medicine. Physical Exam General: Cooperative, healthy appearing, comfortable and no acute distress Orientation/consciousness: Patient oriented x3 Limitations: No limitations Head: Normal to inspection Ears: Hearing grossly normal bilaterally, external ears normal and TM's normal bilaterally Nose: Normal external nose present, Normal nares present and No nasal discharge present Face and sinus: Normal facial exam and Yes sinuses nontender Mouth: Normal oral and palatal mucosa present and moist mucous membranes Throat: Yes tonsils normal, Yes uvula midline. Posterior oropharynx erythema Eyes: Appearance normal, both eyes and all related structures Neck: Normal visual inspection Respiratory: Clear to auscultation bilaterally. Normal respiratory effort, able to speak in complete sentences, Actively coughing, no respiratory distress, not tachypneic, no tripod positioning and no use of accessory muscles Cardiovascular: Regular rate and rhythm. Normal S1 and S2 Skin: No rashes or lesions noted Neuro: Patient oriented x3 Extremities: Normal to inspection and Yes no clubbing, cyanosis or edema PFSH Medical History Anxiety Depression Insulin dependent diabetes mellitus type IA Morbid obesity Charcot arthropathy Obesity (BMI 30.0-34.9) Microalbuminuria Obesity Vitamin D deficiency HLD (hyperlipidemia) HTN (hypertension) T2DM (type 2 diabetes mellitus) Diabetes type 2, uncontrolled Surgical History H/O foot surgery Hx of eye surgery Hx of shoulder surgery Hx of circumcision Family History Father No problems noted. Mother Diabetes Social History Are you a primary home care aide to a significant other at home: No Do you presently have visiting nurse or other home services: No Alcohol intake: never Patient Tobacco Use Status: Never used Tobacco Review of Systems Const All systems reviewed & are unremarkable except as noted in HPI and below Physical Exam Vital Signs: Last Vital Signs Temp 98.9 F 04/25/24 08:07 Pulse 104 H 04/25/24 08:07 Resp 20 04/25/24 08:07 BP 106/72 04/25/24 08:07 Pulse Ox 99 04/25/24 08:07 BMI result Body Mass Index 41.0 Assessment & Plan Assessment & Plan (1) URI, acute: Code(s): J06.9 - Acute upper respiratory infection, unspecified Plan: Plan Testing for COVID-19, influenza, and RSV was initiated to determine the cause of the patient's acute respiratory symptoms. An albuterol inhaler was provided for management of wheezing and shortness of breath, with instructions for use every four to six hours as needed. Tessalon Perles was prescribed for cough suppression at night, alongside advice to continue use of [id number] antihistamines and decongestants for symptomatic relief. The patient was advised to monitor his symptoms and report any changes or worsening of condition for further evaluation. Patient was informed and verbally consented to the use of an ambient scribe for clinic note documentation during this visit Orders: Orders SARS-CoV2/FLU/RSV Today R09.89 - Other specified symptoms and signs involving the circulatory and respiratory systems Medications: New albuterol sulfate 90 mcg/actuation 2 puffs inhalation Q6H PRN 8.5 grams 0RF shortness of breath or wheezing or cough benzonatate 200 mg PO .QHS PRN 10 caps 0RF cough Coding Level of Care Code New Pt Level 3 (15230) Diagnoses URI, acute J06.9
[2024-04-25 08:07] VITALS: BP 106/72; PULSE 104; RESP 20; TEMP 37.2; O2SAT 99; BMI 41.0
--- OUTSIDE RECORDS SUMMARY | 2024-04-25 08:14 | XMS_ITS | Clinical Summary ---
Author Organization [facility] Address [address] [place] [address] Phone Care Team Providers Care Microbiology Teacher Name Role Phone Laina Byrne MD Primary Care Provider Allergies Active Allergy Reactions Criticality Noted Date Comments Albuterol 01/13/2019 Medications tadalafil (CIALIS) 20 MG tablet Take 20 mg by mouth 1 Active sertraline (ZOLOFT) 50 MG tablet sertraline 50 mg tablet TAKE 1 TABLET BY MOUTH ONCE DAILY 2 Active metFORMIN XR (GLUCOPHAGE-XR) 500 MG 24 hr tablet 1,000 mg Active lisinopril 20 MG tablet lisinopril 20 mg tablet TAKE 1 TABLET BY MOUTH ONCE DAILY AT BEDTIME 3 Active hydrOXYzine (ATARAX) 25 MG tablet hydroxyzine HCl 25 mg tablet TAKE 1 TABLET BY MOUTH THREE TIMES DAILY NEEDED Active Empagliflozin (Jardiance) 25 MG tablet Jardiance 25 mg tablet TAKE 1 TABLET BY MOUTH ONCE DAILY 9 Active Cholecalciferol 50 MCG (2000 UT) capsule Vitamin D3 50 mcg (2,000 unit) capsule TAKE 1 CAPSULE BY MOUTH ONCE DAILY Active atorvastatin (LIPITOR) 40 MG tablet atorvastatin 40 mg tablet TAKE 1 TABLET BY MOUTH ONCE DAILY AT BEDTIME 3 Active pioglitazone (ACTOS) 15 MG tablet Take 15 mg by mouth 1 (one) time each day Active Tresiba FlexTouch 100 UNIT/ML injection 18 Units 3 Active Semaglutide (OZEMPIC, 2 MG/DOSE, SC) Inject 2 mg under the skin per week Active Ventolin HFA 108 (90 Base) MCG/ACT inhaler 3 Active triamcinolone (KENALOG) 0.1 % cream 3 Active lisinopril 40 MG tablet Take 40 mg by mouth 1 (one) time each day 3 Active nystatin (MYCOSTATIN) cream 3 Active atorvastatin (LIPITOR) 80 MG tablet Take 80 mg by mouth 1 (one) time each day 3 Active amLODIPine (NORVASC) 5 MG tablet 3 Active Active Problems Problem Noted Date Diagnosed Date Proteinuria 07/08/2022 Type 2 diabetes mellitus wit h diabetic chronic kidney disease 07/08/2022 Essential hypertension 07/08/2022 Anxiety 07/06/2022 Asthma 07/06/2022 Atopic dermatitis 07/06/2022 Cervicalgia 07/06/2022 Charcot arthropathy of joint of ankle 07/06/2022 Cyst of scalp 07/06/2022 Disorder of kidney due to diabetes mellitus 09/2022 Fecal incontinence 07/06/2022 History of methicillin resis tant Staphylococcus aureus infection 07/06/2022 Hypercholesterolemia 07/06/2022 Severe obesity 07/06/2022 Seasonal allergy 07/06/2022 Pruritus 07/06/2022 Patient encounter status 07/06/2022 Obese class II 07/06/2022 Neuropathy due to diabetes mellitus 07/06/2022 Microalbuminuria 07/06/2022 Impotence of organic origin 07/06/2022 Vitamin D deficiency 07/06/2022 Type 2 diabetes mellitus 07/06/2022 Traction detachment of left retina 07/06/2022 Stress 07/06/2022 Shoulder pain 07/06/2022 Immunizations Name Administration Dates Next Due DTP 07/04/1992, 9,04/25/1987,1986,0 1986 Hep B, Adolescent or Pediatric 11/06/1999,1997 Hib (HbOC) 07/29/1997,04/30/1988,12/29/1987 Influenza, Unspecified 04/14/2022,12/04/2020 MMR 08/03/1997,06/15/1994,12/17/1987 Moderna SARS-COV-2 08/15/2021,12/26/2020, 021,03/22/2020 OPV 01/03/1990,07/15/1987,04/25/1987 ,1986 SARS-CoV-2, Unspecified 04/08/2022 Td 11/06/1999 Family History Medical History Relation Comments Diabetes Father Diabetes Mother Relation Status Comments Father Alive Mother Alive Social History Tobacco Use Types Packs/Day Years Used Date Smoking Tobacco: Never Smokeless Tobacco: Never Tobacco Cessation:Counseling Given: Not Answered Alcohol Use Standard Drinks/Week Comments Never 0 (1 standard drink = 0.6 oz pur e alcohol) Sex and Gender Information Value Date Recorded Sex Assigned at Not on file Legal Sex Male 11:35 AM EDT Gender Identity Not on file Sexual Orientation Not on file Last Filed Vital Signs Vital Sign Reading Time Taken Comments Blood Pressure 125/80 07/08/2022 10:33 AM EDT Pulse 88 07/08/2022 10:33 AM EDT Temperature - - Respiratory Rate - - Oxygen Saturation 99% 07/08/2022 10:33 AM EDT Inhaled Oxygen Concentration - - Weight 123 kg (270 lb 9.6 oz) 07/08/2022 10:33 A M EDT Height - - Body Mass Index - - Plan of Treatment Health Maintenance Due Date Last Done Comments Pneumococcal Vaccine: Pediat rics (0 to 5 Years) and At-Risk Patients (6 to 64 Years) (1 of 2 - PCV) 1992 Hepatitis B Vaccine (3 of 3 - 3-dose series) 01/01/2000 11/06/1999, 08/03/1997 Diabetes: Hemoglobin A1C 07/06/2022 Diabetes: Ophthalmology Exam 07/06/2022 Diabetes: Pedal Pulse Checked 07/06/2022 Diabetes: Sensory Foot Exam 07/06/2022 Diabetes: Visual Foot Exam 07/06/2022 Influenza Vaccine (#1) 2023 04/14/2022, 2020 Care Teams Microbiology Teacher Relationship Specialty Start Date End Date Laina Byrne MD [address] [place] [address] PCP - General Internal Medicine 06/02/22
--- OUTSIDE RECORDS SUMMARY | 2024-04-25 08:14 | XMS_ITS | Clinical Summary ---
Author Organization [address] [facility] Address [address] [place] [address] Phone Care Team Providers Care Director Card Name Role Phone Laina Byrne MD Primary Care Provider [phone] Social History Tobacco Use Types Packs/Day Years Used Date Smoking Tobacco: Never Assessed Sex and Gender Information Value Date Recorded Sex Assigned at Not on file Legal Sex Male 11:40 AM EDT Gender Identity Not on file Sexual Orientation Not on file Plan of Treatment Upcoming Encounters Date Type Department Care Team ([facility] st Contact Info) Description 05/02/2024 2:15 PM EST Consult Orthopedic Surgery - [place] [id number] [phone] Perez Wilkins, GRICEL [address] [address] Health Maintenance Due Date Last Done Comments DTaP,Tdap,and Td Vaccines (1 - Tdap) 2005 Hepatitis B Vaccines (1 of 3 - 19+ 3-dose series) 2005 COVID-19 Vaccine ( - 2023-2 5 season) 2023 Influenza Vaccine (#1) 2023 Cholesterol Screening (Lipid Panel) 12/13/2023 03/07/2004 Depression Screening 12/13/2023 HIV Screening 12/13/2023 Hepatitis C Screening 12/13/2023 Social Influencers of Health Screening 12/13/2023 HIB Vaccines Aged Out No longer eligi ble based on patient's age to complete this topic HPV Vaccines Aged Out No longer eligi ble based on patient's age to complete this topic Hepatitis A Vaccines Aged Out No long er eligible based on patient's age to complete this topic IPV Vaccines Aged Out No longer eligi ble based on patient's age to complete this topic MMR Vaccines Aged Out No longer eligi ble based on patient's age to complete this topic Meningococcal ACWY Vaccine Aged Out N o longer eligible based on patient's age to complete this topic Meningococcal B Vacine Aged Out No lo nger eligible based on patient's age to complete this topic Pneumococcal Vaccine: Pediat rics (0 to 5 Years) and At-Risk Patients (6 to 64 Years) Aged Out No longer eligi ble based on patient's age to complete this topic RSV Immunization Patients Un dave 20 months Aged Out No longer eligible b ased on patient's age to complete this topic Varicella Vaccines Aged Out No longer eligible based on patient's age to complete this topic Procedures Procedure Name Priority Date/Time Associated Diagnosis Comments LIPID PANEL Routine 03/07/2004 from Last 3 Months or Most Recently Relevant to Health Maintenance Results * (ABNORMAL) Lipid panel (03/07/2004) LDL/HDL Ratio 4 <=5 Triglycerides 71 <=150 mg/dL Cholesterol 165 <=200 mg/dL HDL 38(A) >=40 mg/dL LDL Cholesterol 113(A) <=100 mg/dL Blood Venous blood specimen / Unknown Historical Provider LAB BLOOD ORDERABLES Aileen l Result from Last 3 Months or Most Recently Relevant to Health Maintenance Insurance [facility] [employer] Care Teams Director Card Relationship Specialty Start Date End Date Laina Byrne MD PCP - General Internal Medicine 02/14/24
== END 2024-04-25 08:33 | disposition home or self-care (01) ==
PROVIDERS: PCP Internal Medicine; Visit Provider Physician Assistant
DX: J06.9 Acute upper respiratory infection, unspecified (principal)

== ENCOUNTER 2024-04-25 08:05 | Outpatient (REF) | payer OTHER, SELFPAY ==
[2024-04-25 13:37] LABS: Influenza A PCR NEGATIVE (Negative); Influenza B PCR NEGATIVE (Negative); Resp Syncy Virus RNA Qual PCR NEGATIVE (Negative); SARS COV2 PCR INHOUSE NEGATIVE (Negative)
== END 2024-04-25 08:06 | disposition home or self-care (01) ==
LOC: HO.LAB 08:05
PROVIDERS: PCP Internal Medicine; Visit Provider Physician Assistant
DX: J06.9 Acute upper respiratory infection, unspecified (principal); R09.89 Other specified symptoms and signs involving the circulatory and respiratory systems
CPT/HCPCS: 0241U; 99202

== ENCOUNTER 2024-04-27 14:58 | Outpatient (AMB) | payer OTHER, SELFPAY ==
[2024-04-27 15:35] VITALS: BP 130/82; PULSE 74; TEMP 36.8; O2SAT 98; BMI 41.0
--- NOTE | 2024-04-27 15:35 | AM.OFFWIN_ITS ---
Intake Vital Signs 04/27/24 15:35 Height 6 ft Weight 302 lb BMI 41.0 BP 130/82 Blood Pressure Location Lt brachial Position Sitting Pulse 74 Pulse Source Pulse Oximeter Temp 98.2 F Temp Source Oral Pulse Oximetry (%) 98 Oxygen Delivery Method Room Air Intake Visit Reasons: EP sore throat/swelling Intake Note: Patient here for raspy voice, sore throat that has been present for about 1 week. Patient Tobacco Use Status: Never used Tobacco Allergies Proventil Allergy (Mild, Uncoded 04/27/24 15:42) rash HPI HPI Comments History of Present Illness Details 38 y/o male patient who presents to the walk in clinic with c/o URI symptoms. Pt reports 1 week h/o Sore-throat associated with Raspy voice. Pt was seen and evaluated here on 04/25 for similar symptoms and diagnosed with Viral respiratory disease. [facility] Medical History (Updated 04/27/24 @ 16:00 by Yuni Stephens NP) Acute bacterial pharyngitis Anxiety Depression Insulin dependent diabetes mellitus type IA Morbid obesity Charcot arthropathy Obesity (BMI 30.0-34.9) Microalbuminuria Obesity Vitamin D deficiency HLD (hyperlipidemia) HTN (hypertension) T2DM (type 2 diabetes mellitus) Diabetes type 2, uncontrolled Surgical History H/O foot surgery Hx of eye surgery Hx of shoulder surgery Hx of circumcision Family History Father No problems noted. Mother Diabetes Social History Are you a primary home health care physician to a significant other at home: No Do you presently have visiting nurse or other home services: No Alcohol intake: never Patient Tobacco Use Status: Never used Tobacco Review of Systems Const All systems reviewed & are unremarkable except as noted in HPI and below Physical Exam Vital Signs: Last Vital Signs Temp 98.2 F 04/27/24 15:35 Pulse 74 04/27/24 15:35 BP 130/82 04/27/24 15:35 Pulse Ox 98 04/27/24 15:35 Oxygen Delivery Method Room Air 04/27/24 15:35 BMI result Body Mass Index 41.0 Const General: cooperative and no acute distress Nutritional Appearance: obese Orientation/consciousness: patient oriented x3 HEENT Head: Yes normocephalic Ears: external ears normal and TM abnormal with fluid behind the TM bilateral General nose exam: Nasal discharge present Face and sinus: Yes sinuses nontender Mouth: moist mucous membranes Throat: Yes uvula midline and Yes abnormal tonsil (Enlarged Tonsils +3 ) Resp Effort & Inspection: normal respiratory effort and able to speak in complete sentences Auscultation: clear to auscultation bilaterally, no crackles, no rales, no rhonchi and no wheezes Cardio Heart sounds: S1 normal heart sound present and S2 normal heart sound present Neuro General: patient oriented x3 Results AMB Rapid Strep AMB Rapid Strep Positive Last Edit by RENA Gloria on 04/27/24 15:55 Results Reviewed Results Reviewed: Laboratory Last Values Strep Scn Rapid Clinic Positive 04/27/24 15:55 Assessment & Plan Assessment & Plan (1) Acute bacterial pharyngitis: Code(s): J02.8 - Acute pharyngitis due to other specified organisms; B96.89 - Other specified bacterial agents as the cause of diseases classified elsewhere Plan: Rapid Strep Positive Ordered PCN Rest and hydrate with warm fluids. Warm fluids with Honey. Orders: Orders AMB Rapid Strep Screen Today Z13.9 - Encounter for screening, unspecified Medications: New penicillin V potassium 500 mg PO BID 7 days 14 tabs 0RF B96.89 - Other specified bacterial agents as the cause of diseases classified elsewhere, J02.8 - Acute pharyngitis due to other specified organisms prednisone 20 mg PO DAILY 10 tabs 0RF B96.89 - Other specified bacterial agents as the cause of diseases classified elsewhere, J02.8 - Acute pharyngitis due to other specified organisms Coding Level of Care Code Est Pt Level 4 (06784) Diagnoses Acute bacterial pharyngitis J02.8; B96.89 Time Spent (min) 20
--- OUTSIDE RECORDS SUMMARY | 2024-04-27 18:17 | XMS_ITS | Clinical Summary ---
Author Organization [address] [facility] Address [address] [place] [address] Phone Care Team Providers Care Associate Professor Of Communication Name Role Phone Laina Byrne MD Primary Care Provider [phone] Social History Tobacco Use Types Packs/Day Years Used Date Smoking Tobacco: Never Assessed Sex and Gender Information Value Date Recorded Sex Assigned at Not on file Legal Sex Male 11:40 AM EDT Gender Identity Not on file Sexual Orientation Not on file Plan of Treatment Upcoming Encounters Date Type Department Care Team ([facility] st Contact Info) Description 05/02/2024 2:15 PM EST Consult Orthopedic Surgery - [place] [id number] [phone] Perez Wilkins, GRICEL [address] [address] Health Maintenance Due Date Last Done Comments [...] Most Recently Relevant to Health Maintenance Insurance [facility] PUBLIC PLANS Care Teams Associate Professor Of Communication Relationship Specialty Start Date End Date Laina Byrne MD PCP - General Internal Medicine 02/14/24
--- OUTSIDE RECORDS SUMMARY | 2024-04-27 18:17 | XMS_ITS | Clinical Summary ---
Author Organization [facility] Address [address] [place] [address] Phone Care Team Providers Care Internet Application Developer Name Role Phone Laina Byrne MD Primary [...] Vaccine (#1) 2023 04/14/2022, 2020 Care Teams Internet Application Developer Relationship Specialty Start Date End Date Laina Byrne MD [address] [place] [address] PCP - General Internal Medicine 06/02/22
== END 2024-04-27 16:01 | disposition home or self-care (01) ==
PROVIDERS: PCP Internal Medicine; Visit Provider Nurse Practitioner Family
DX: J02.8 Acute pharyngitis due to other specified organisms (principal); B96.89 Other specified bacterial agents as the cause of diseases classified elsewhere; Z13.9 Encounter for screening, unspecified

== ENCOUNTER → 2024-04-27 14:58 | Outpatient (BNVA) | payer OTHER, SELFPAY | PROVIDERS: PCP Internal Medicine | DX: J02.8 Acute pharyngitis due to other specified organisms (principal); B96.89 Other specified bacterial agents as the cause of diseases classified elsewhere | CPT/HCPCS: 87880; 99212 ==

== ENCOUNTER 2024-06-07 10:42 | Emergency (ER) | payer OTHER, SELFPAY ==
--- NOTE | ~2024-06-07 | XR_ITS ---
EXAMINATION: XR ANKLE 3 OR MORE VIEWS LEFT HISTORY: painful heard a pop COMPARISON: There are no prior studies available for comparison. FINDINGS: Three views of the left ankle are submitted. Osseous mineralization is normal. There is no fracture or dislocation. The joint spaces are preserved. There is marked soft tissue swelling posteriorly in the region of the insertion of the Achilles tendon. There is a small plantar calcaneal spur. There are vascular calcifications. XR/XR ankle LT min 3V IMPRESSION: Marked soft tissue swelling in the region of the insertion of the Achilles tendon. Findings are suspicious for Achilles tendon rupture. Clinical correlation is recommended. Electronically signed by: Madan Herman MD 06/07/2024 11:28 AM EDT
[2024-06-07 10:52] VITALS: BP 138/86; BP 165/88; PULSE 90; RESP 18; TEMP 36.7; O2SAT 100; O2SAT 99; BMI 40.7
--- NOTE | 2024-06-07 12:11 | ED.GENADULT ---
HPI - General Adult General Chief complaint: Extremity Injury, Lower Stated complaint: L ANKLE/FOOT PAIN,FELT & HEARD POP PER EMS Time Seen by Provider: 06/07/24 11:55 Source: patient, RN notes reviewed and old records reviewed Mode of arrival: ambulatory Limitations: no limitations History of Present Illness ED Provider: Norah HPI narrative: 38-year-old male presents for evaluation of left leg pain. Patient reports he had pain to his left heel and back of his ankle for the last few days. He felt as if he would exercise he will be able to get the pain to go away. He reports that he has spent 15 minutes on a stationary bike today. When he got off the bike he took a step and felt a pop behind his left leg/foot. He has severe pain to the area in his unable to bear weight You did not fall and there was no trauma His pain is 10/08 Related Data Home Medications ?Medication ?Instructions ?Recorded ?Confirmed insulin needles (disposable) 30 X ##1 02/19/20 03/30/24 3/ amlodipine 10 mg tablet 10 mg PO DAILY 08/30/23 03/30/24 atorvastatin 80 mg tablet 80 mg PO DAILY 11/16/23 03/30/24 sertraline 50 mg tablet 50 mg PO DAILY 12/20/23 03/30/24 semaglutide 2 mg/dose (8 mg/3 mL) 2 mg subcut QWEEK 03/29/24 03/30/24 subcutaneous pen injector (Ozempic) Previous Rx's ?Medication ?Instructions ?Recorded blood-glucose meter (FreeStyle #1 ea 07/18/20 Lite Meter kit) pioglitazone 15 mg tablet 15 mg PO DAILY #90 tabs 11/10/21 pen needle, diabetic 32 gauge x #50 ea 07/15/22 1/ (BD Ultra-Fine Micro Pen Needle) blood-glucose sensor (FreeStyle #2 ea 08/31/23 Viky 3 Sensor device) blood sugar diagnostic (FreeStyle #100 ea 09/10/23 Lite Strips) blood-glucose meter (FreeStyle #1 ea 09/10/23 Lite Meter kit) lancets 28 gauge (FreeStyle #100 ea 09/10/23 Lancets) Tresiba FlexTouch U-100 100 36 unit (0.36 mL) subcut BEDTIME 11/16/23 unit/mL (3 mL) subcutaneous pen 30 days #12 mL (insulin degludec) cholecalciferol (vitamin D3) 50 50 mcg PO DAILY 90 days #90 caps 01/25/24 mcg (2,000 unit) capsule (Vitamin D3) lisinopril 40 mg tablet 40 mg PO DAILY 30 days #30 tabs 01/31/24 tirzepatide 10 mg/0.5 mL 10 mg (0.5 mL) subcut QWEEK 28 02/02/24 subcutaneous pen injector days #2 mL (Mounjaro) albuterol sulfate 90 mcg/actuation 2 puff inhalation Q6H PRN 04/25/24 aerosol inhaler shortness of breath or wheezing or cough #8.5 grams benzonatate 200 mg capsule 200 mg PO .QHS PRN cough #10 caps 04/25/24 penicillin V potassium 500 mg 500 mg PO BID 7 days #14 tabs 04/27/24 tablet prednisone 20 mg tablet 20 mg PO DAILY #10 tabs 04/27/24 metformin 500 mg tablet,extended 1,000 mg (2 x 500 mg) PO BID 90 05/24/24 release 24 hr days #360 tabs Jardiance 25 mg tablet 25 mg PO DAILY 30 days #30 tabs 06/06/24 (empagliflozin) Allergies Allergy/AdvReac Type Severity Reaction Status Date / Time Proventil Allergy Mild rash Uncoded 06/07/24 10:56 Review of Systems Constitutional: Constitutional: Denies body ache(s), Denies chills, Denies fever(s) and Denies headache(s) Eyes: Eyes: Denies blurry vision ENT: Denies vertigo, Denies dizziness and Denies headache(s) Cardiovascular: Cardiovascular: Denies chest pain and Denies dyspnea Respiratory: Respiratory: Denies cough and Denies dyspnea Gastrointestinal: Gastrointestinal: Denies abdominal pain, Denies nausea and Denies vomiting Musculoskeletal: Musculoskeletal: Reports arthralgias, Reports joint swelling and Reports limited range of motion Integumentary/Breasts: Skin/Breast: Denies rash Neurologic: Denies vertigo, Denies dizziness and Denies headache(s) [facility] Past Medical History Medical History (Updated 06/07/24 @ 12:14 by Jian Almazan) Acute bacterial pharyngitis Anxiety Depression Insulin dependent diabetes mellitus type IA Morbid obesity Charcot arthropathy Obesity (BMI 30.0-34.9) Microalbuminuria Obesity Vitamin D deficiency HLD (hyperlipidemia) HTN (hypertension) T2DM (type 2 diabetes mellitus) Diabetes type 2, uncontrolled Surgical History H/O foot surgery Hx of eye surgery Hx of shoulder surgery Hx of circumcision Family History Family History Father No problems noted. Mother Diabetes Social History Social History Are you a primary care program resident to a significant other at home: No Do you presently have visiting nurse or other home services: No Alcohol intake: never Patient Tobacco Use Status: Never used Tobacco Advance Directives: No Advance Directives Information Provided: Yes Physical Exam ED Vital Signs: Vital Signs - 24 hr 06/07/24 10:52 06/07/24 12:29 Temperature 98.0 F 98.0 F Pulse Rate 90 90 Respiratory Rate 18 18 Blood Pressure 165/88 H 165/88 H Pulse Oximetry 100 100 Oxygen Delivery Method Room Air Room Air BMI result Body Mass Index 40.7 Const General: healthy appearing, comfortable, no acute distress, alert and awake Nutritional Appearance: well nourished Orientation/consciousness: patient oriented x3 HENMT Head: Yes normocephalic and Yes atraumatic Eyes Eyelids: Yes eyelids normal Conjunctivae: conjunctivae normal Sclerae: sclerae normal Corneas: corneas normal Pupils: Equal, round and reactive pupils present EOM: EOMs intact bilaterally Neck Neck: Yes full ROM Resp Effort & Inspection: normal respiratory effort, able to speak in complete sentences and not labored GI Inspection: No distended Palpation (GI): Soft to palpation, not firm, nontender, no guarding and not rigid Skin General skin exam: elasticity normal Neuro General: patient oriented x3 Cranial nerves: Yes Equal, round and reactive pupils present and Yes Bilaterally intact EOM present Cognition (Neuro): normal cognition Extrem Other: The patient has some edema over the insertion of the Achilles tendon. This area is exquisitely tender to palpation. The patient as slightly reduced range of motion with plantar flexion but is able to dorsiflex. There is no bogginess over the Achilles tendon region. Modified Hilliard test negative Procedures Orthopedic Splinting/Casting Injury #1: Side: left Lower Extremity Injury Location: lower leg Lower Extremity Immobilizer: posterior splint (45 degrees of plantar flexion) Other Orthopedic Equipment: crutches Additional Comments: Postprocedure neurovascular status intact. Capillary refill under 3 seconds, gross sensation intact. Medical Decision Making Medical Decision Making MDM Narrative: 38-year-old male presents for evaluation of left lower leg pain. He has tenderness to the Achilles region but no bogginess. He has reduced range of motion with plantar flexion. X-ray shows concern for Achilles tendon rupture and clinically this is consistent with his history and exam findings. The patient was placed in a posterior walking splint with 45? of plantar flexion. He will be discharged to follow up with Orthopedics. Splinting was performed by MELISSA Rincon under my direct supervision Differential Diagnosis Differential Diagnoses: The differential diagnosis associated with the presentation includes Achilles tendon rupture Ankle sprain Calf strain Tendonitis DVT less likely Radiology Impression Discussion of test interpretation with radiology: I have reviewed the radiologist's reading. Radiologist Impression: FINDINGS: Three views of the left ankle are submitted. Osseous mineralization is normal. There is no fracture or dislocation. The joint spaces are preserved. There is marked soft tissue swelling posteriorly in the region of the insertion of the Achilles tendon. There is a small plantar calcaneal spur. There are vascular calcifications. XR/XR ankle LT min 3V IMPRESSION: Marked soft tissue swelling in the region of the insertion of the Achilles tendon. Findings are suspicious for Achilles tendon rupture. Clinical correlation is recommended. Electronically signed by: Madan Herman MD 06/07/2024 11:28 AM EDT Discharge Plan Discharge Clinical Impression: Achilles rupture, left Patient Disposition: Home, Self-Care Instructions: Achilles Tendon Rupture (ED) Additional Instructions: Your x-ray shows that you have swelling in your Achilles tendon area. This may indicate a partial or complete Achilles tendon rupture You were placed in a splint Keep the splint on, clean and dry until you follow-up with orthopedics Call orthopedics to schedule an appointment for follow-up Use ibuprofen/Tylenol for pain Prescriptions: No Action pioglitazone 15 mg tablet 15 mg PO DAILY Qty: 90 6RF (DME) pen needle, diabetic [BD Ultra-Fine Micro Pen Needle] 32 gauge x 1/4 needle See Rx Instructions .ROUTE .MEDSUPPLY Qty: 50 11RF Rx Instructions: 1x daily (DME) FreeStyle Viky 3 Sensor Device See Rx Instructions .Route Qty: 2 5RF Rx Instructions: As directed change every 14 days (DME) blood-glucose meter [FreeStyle Lite Meter] Kit See Rx Instructions .Route Qty: 1 0RF Rx Instructions: As directed checks 4 X/day (DME) lancets [FreeStyle Lancets] 28 gauge misc See Rx Instructions .ROUTE .MEDSUPPLY Qty: 100 1RF Rx Instructions: As directed chacks 4/day (DME) FreeStyle Lite Strips Strip See Rx Instructions .Route Qty: 100 4RF Rx Instructions: As directed tests 4X/day cholecalciferol (vitamin D3) [Vitamin D3] 50 mcg (2,000 unit) capsule 50 mcg PO DAILY 90 Days Qty: 90 2RF lisinopril 40 mg tablet 40 mg PO DAILY 30 Days Qty: 30 11RF metformin 500 mg tablet extended release 24 hr 1,000 mg PO BID 90 Days Qty: 360 0RF Ozempic 2 mg/dose (8 mg/3 mL) pen injector 2 mg subcut QWEEK (DME) insulin needles (disposable) 30 X 3/4 needle See Rx Instructions .ROUTE .MEDSUPPLY Qty: 1 Rx Instructions: As directed (DME) blood-glucose meter [FreeStyle Lite Meter] Kit See Rx Instructions .ROUTE .MEDSUPPLY Qty: 1 0RF Rx Instructions: As directed amlodipine 10 mg tablet 10 mg PO DAILY atorvastatin 80 mg tablet 80 mg PO DAILY insulin degludec [Tresiba FlexTouch U-100] 100 unit/mL (3 mL) insulin pen 36 unit subcut BEDTIME 30 Days Qty: 12 11RF sertraline 50 mg tablet 50 mg PO DAILY Jardiance 25 mg tablet 25 mg PO DAILY 30 Days Qty: 30 3RF Mounjaro 10 mg/0.5 mL pen injector 10 mg subcut QWEEK 28 Days Qty: 2 11RF albuterol sulfate 90 mcg/actuation HFA aerosol inhaler 2 puff inhalation Q6H PRN (Reason: shortness of breath or wheezing or cough) Qty: 8.5 0RF benzonatate 200 mg capsule 200 mg PO .QHS PRN (Reason: cough) Qty: 10 0RF penicillin V potassium 500 mg tablet 500 mg PO BID 7 Days Qty: 14 0RF prednisone 20 mg tablet 20 mg PO DAILY Qty: 10 0RF Referrals: Dillon Caballero MD [Physician] - (left achilles tendon rupture) Interventions: ED Discharge Assessment Last Done: 06/07/24 12:29 Discharge Date/Time: 06/07/24 12:31 Print Language: Romansh
[2024-06-07 12:29] VITALS: BP 165/88; PULSE 90; RESP 18; TEMP 36.7; O2SAT 100
--- OUTSIDE RECORDS SUMMARY | 2024-06-07 14:18 | XMS_ITS | Clinical Summary ---
Author Organization 175 [facility] Address [address] [place] [address] Phone Care Team Providers Care Iuss Analyst Name Role Phone Laina Byrne MD Primary Care Provider Allergies Active Allergy Reactions Criticality Noted Date Comments Albuterol 05/02/2024 Encounters Date Type Department Care Team Description 05/02/2024 2:15 PM EST Consult Orthopedic Surgery [facility] [address] [phone] Perez Wilkins DPM Poorly controlled type 2 diabetes mellitus with neuropathy (CMS/[facility]) (Primary Dx); Charcot's joint, unspecified site; Arthritis of both feet; Hammertoes of both feet; Dermatophytosis, nail from Last 3 Months Social History Tobacco Use Types Packs/Day Years Used Date Smoking Tobacco: Never Assessed Sex and Gender Information Value Date Recorded Sex Assigned at Not on file Legal Sex Male 11:40 AM EDT Gender Identity Not on file Sexual Orientation Not on file Last Filed Vital Signs Vital Sign Reading Time Taken Comments Blood Pressure - - Pulse - - Temperature - - Respiratory Rate - - Oxygen Saturation - - Inhaled Oxygen Concentration - - Weight 136 kg (300 lb) 05/02/2024 2:27 PM EST Height 182.9 cm (6') 05/02/2024 2:27 PM EST Body Mass Index 40.69 05/02/2024 2:27 PM EST Plan of Treatment Upcoming Encounters Date Type Department Care Team ([facility] st Contact Info) Description 07/05/2024 8:15 AM EDT Office Visit Orthopedic Surgery [facility] [address] [phone] Perez Wilkins DPM [address] [address] Health Maintenance Due Date Last Done Comments Diabetes: Annual Foot Exam 1996 Diabetes: Annual Retina Eye Exam 1996 Diabetes: Annual GFR (Glomerular Filtration Rate) 03/07/2005 03/07/2004 Hepatitis B Vaccines (1 of 3 - 19+ 3-dose series) 2005 Cholesterol Screening (Lipid Panel) 12/13/2023 03/07/2004 Depression Screening 12/13/2023 HIV Screening 12/13/2023 Hepatitis C Screening 12/13/2023 Social Influencers of Health Screening 12/13/2023 Diabetes: Annual Urine Albumin-Creatinine Ratio (uACR) 05/03/2024 Diabetes: Blood Sugar Control Test (HGBA1C) 05/03/2024 03/07/2004 DTaP,Tdap,and Td Vaccines (2 - Td or Tdap) 05/25/2032 05/25/2022 Pneumococcal Vaccine: Pediatrics (0 to 5 Years) and At-Risk Patients (6 to 64 Years) Completed 05/25/2022 COVID-19 Vaccine Completed 12/25/2023, , 04/08/2022, Additional history exists Influenza Vaccine Completed 12/25/2023, , 04/14/2022, Additional history exists HIB Vaccines Aged Out No longer eligi [...] age to complete this topic Meningococcal B Vaccine Aged Out No l onger eligible based on patient's age to complete this topic RSV Immunization Patients Under 20 months Aged Out No longer eligible based on patient's age to complete this topic Varicella Vaccines Aged Out No longer eligible based on patient's age to complete this topic Procedures Procedure Name Priority Date/Time Associated Diagnosis Comments ANNUAL BMP BLOOD TEST Routine 03/07/2004 HEMOGLOBIN A1C Routine 03/07/2004 LIPID PANEL Routine 03/07/2004 from Last 3 Months or Most Recently Relevant to Health Maintenance Results * Annual BMP Blood Test (03/07/2004) Annual BMP Blood Test abstracted [facility] Provider HEALTH MAINTENANCE Final Result * Hemoglobin A1c (03/07/2004) Pathologist [facility] Hemoglobin A1C 5.4 4.0 - 6.0 % Blood Venous blood specimen / Unknown [facility] Provider LAB BLOOD ORDERABLES Aileen l Result * (ABNORMAL) Lipid panel (03/07/2004) Pathologist [facility] LDL/HDL Ratio 4 <=5 Triglycerides 71 <=150 mg/dL Cholesterol 165 <=200 mg/dL HDL 38(A) >=40 mg/dL LDL Cholesterol 113(A) <=100 mg/dL Blood Venous blood specimen / Unknown [facility] Provider LAB BLOOD ORDERABLES Aileen l Result from Last 3 Months or Most Recently Relevant to Health Maintenance Insurance [facility] [employer] Care Teams Iuss Analyst Relationship Specialty Start Date End Date Laina Byrne MD PCP - General Internal Medicine 02/14/24
--- OUTSIDE RECORDS SUMMARY | 2024-06-07 14:18 | XMS_ITS | Clinical Summary ---
Author Organization [facility] Address [address] [place] [address] Phone Care Team Providers Care Precision Dyer Name Role Phone Laina Byrne MD Primary [...] Diabetes: Visual Foot Exam 07/06/2022 Influenza Vaccine (Season Ended) 2024 04/14/19, 12/04/2020 Care Teams Precision Dyer Relationship Specialty Start Date End Date Laina Byrne MD [address] [place] [address] PCP - General Internal Medicine 06/02/22
== END 2024-06-07 12:31 | disposition home or self-care (01) ==
PROVIDERS: Emergency Provider Emergency Medicine; PCP Internal Medicine
DX: S86.012A Strain of left Achilles tendon, initial encounter (principal); M25.572 Pain in left ankle and joints of left foot; X58.XXXA Exposure to other specified factors, initial encounter; Y93.9 Activity, unspecified; Y92.9 Unspecified place or not applicable; Y99.8 Other external cause status
CPT/HCPCS: 29505; 29515; 73610; 99282; 99283

== ENCOUNTER → 2024-06-07 11:20 | Outpatient (BNV) | payer OTHER, SELFPAY | PROVIDERS: Visit Provider Radiology Diagnostic Radiology | DX: R22.42 Localized swelling, mass and lump, left lower limb (principal) | CPT/HCPCS: 73610 ==

== ENCOUNTER 2024-06-09 10:45 | Outpatient (AMB) | payer OTHER, SELFPAY ==
[2024-06-09 10:58] VITALS: BMI 40.7
--- NOTE | 2024-06-09 10:58 | MHC.OFFVIS ---
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 Patient was seen at [facility] ER on 06/07/24 for left heel and back of ankle pain for the past few days. Prior to ER arrival he spent 15 minutes on a stationary bike to see if this will help with his discomfort, upon getting off the bike he took a step and felt a pop behind his left leg/foot. He had severe pain to the area and was unable to bear weight. X-rays were taken, placed in a splint and referred to orthopedics. Patient reports his pain is tolerable, pain with flexing his foot. Current opain level is a 1 out of 10. Increase of pain with certain flexed positions. Hx of nueropathy. Allergies Proventil Allergy (Mild, Uncoded 06/09/24 11:20) rash HPI HPI [employer]PER[employer]-Achilles rupture, left lower leg: Details: 38-year-old gentleman presents to the office today for an injury to the left lower extremity. He states a few days prior to his 06/07 emergency room visit he was experiencing discomfort in the lower leg. He states on 06/07 he was on a stationary bike thinking this would help loosen up the tension in his lower leg however when he got off the bike he had significant pain and felt a pop. He had difficulty ambulating and was seen in the emergency department where there is a suspicion for Achilles tendon rupture versus calf strain. He was placed in a posterior splint nonweightbearing and referred to our office for ortho eval. [facility] Medical History (Updated 06/09/24 @ 11:52 by Iman Rapp PA-C) Acute bacterial pharyngitis Anxiety Depression Insulin dependent diabetes mellitus type IA Morbid obesity Charcot arthropathy Obesity (BMI 30.0-34.9) Microalbuminuria Obesity Vitamin D deficiency HLD (hyperlipidemia) HTN (hypertension) T2DM (type 2 diabetes mellitus) Diabetes type 2, uncontrolled Surgical History (Updated 06/09/24 @ 11:21 by GREGG Morris) H/O foot surgery Hx of eye surgery Hx of shoulder surgery Hx of circumcision Family History Father No problems noted. Mother Diabetes Social History (Updated 06/09/24 @ 11:21 by Lily Saldivar [facility]) Are you a primary nonfarm animal caretaker to a significant other at home: No Do you presently have visiting nurse or other home services: No Alcohol intake: never Patient Tobacco Use Status: Never used Tobacco Current occupational status: unemployed Review of Systems Const All systems reviewed & are unremarkable except as noted in HPI and below Physical Exam Vital Signs: BMI result Body Mass Index 40.7 Const General: cooperative and no acute distress Orientation/consciousness: patient oriented x3 Resp Effort & Inspection: normal respiratory effort and able to speak in complete sentences Cardio Peripheral pulses: Peripheral pulses 2+ throughout Neuro General: patient oriented x3 Extrem Other: Left Achilles tendon intact there is no palpable deformity. No significant tenderness over the Achilles tendon. He has a negative Hilliard's. There is pain along the distal aspect of the gastroc muscle with palpable knot. He is able to passively plantar and dorsiflex. Neurovascularly intact. Assessment & Plan Assessment & Plan (1) Gastrocnemius strain, left: Code(s): S86.112A - Strain of other muscle(s) and tendon(s) of posterior muscle group at lower leg level, left leg, initial encounter Category: Medical Plan: At this time I feel his primary injury is gastroc strain. I did explain how this needs to heal by decreasing inflammation, immobilization and then physical therapy. He was fit for a tall boot weightbearing as tolerated with wedges. He will remove 1 wedge a week. He can begin physical therapy to work on range of motion, strength and heel cord stretching. He will increase activities as tolerated however if symptoms persist or worsen he will contact our office otherwise follow up as needed. Orders: Orders PT Evaluation and Treatment Today S86.112A - Strain of other muscle(s) and tendon(s) of posterior muscle group at lower leg level, left leg, initial encounter Coding Level of Care Code New Pt Level 3 (72419) Complex EM visit Add On G2211 Diagnoses Gastrocnemius strain, left S86.112A
--- OUTSIDE RECORDS SUMMARY | 2024-06-09 11:39 | XMS_ITS ---
Author Name [facility] Organization Unknown Care Team Organization Name Specialty Phone Email Start Date End Da te [employer] Insurance 12/12/2023 0 03/01/2024
--- OUTSIDE RECORDS SUMMARY | 2024-06-09 11:39 | XMS_ITS | Clinical Summary ---
Author Organization 175 [facility] Address [address] [place] [address] Phone Care Team Providers Care Fire Sprinkler Inspector Name Role Phone Laina Byrne MD Primary Care Provider Allergies Active Allergy Reactions Criticality Noted Date Comments Albuterol 05/02/2024 Encounters Date Type Department Care Team Description 05/02/2024 2:15 PM EST Consult Orthopedic Surgery [facility] [address] [phone] Perez Wilkins DPM Poorly controlled type 2 diabetes mellitus with neuropathy (CMS/HCC V24, CMS/HCC V28) (Primary Dx); Charcot's joint, unspecified site; Arthritis [...] Upcoming Encounters Date Type Department Care Team (Late st Contact Info) Description 07/05/2024 8:15 AM EDT Office Visit Orthopedic Surgery [facility] [address] [phone] Claudette, Perez A, [address] [address] Health Maintenance Due Date Last Done Comments [...] Test (03/07/2004) Annual BMP Blood Test abstracted [facility] Provider HEALTH MAINTENANCE Final Result * Hemoglobin A1c (03/07/2004) Hemoglobin A1C 5.4 4.0 - 6.0 % Blood Venous blood specimen / Unknown [facility] Provider LAB BLOOD ORDERABLES Aileen l Result * (ABNORMAL) Lipid panel (03/07/2004) LDL/HDL Ratio 4 <=5 Triglycerides 71 <=150 mg/dL Cholesterol 165 <=200 mg/dL HDL 38(A) >=40 mg/dL LDL Cholesterol 113(A) <=100 mg/dL Blood Venous blood specimen / Unknown [facility] Provider LAB BLOOD ORDERABLES Aileen l Result from Last 3 Months or Most Recently Relevant to Health Maintenance Insurance [facility] [employer] Care Teams Fire Sprinkler Inspector Relationship Specialty Start Date End Date Laina Byrne MD PCP - General Internal Medicine 02/14/24
--- OUTSIDE RECORDS SUMMARY | 2024-06-09 11:39 | XMS_ITS | Clinical Summary ---
Author Organization [facility] Address [address] [place] [address] Phone Care Team Providers Care Boxing And Pressing Supervisor Name Role Phone Laina Byrne MD Primary [...] 07/06/2022 Stress 07/06/2022 Shoulder pain 07/06/2022 Immunizations Immunization Administration Dates Next Due DTP 07/04/1992, 9,04/25/1987,1986,0 [...] Due Date Last Done Comments Pneumococcal Vaccine: Peds ( 0 to 5 Years) and At-Risk Patients (6 to 49 Years) (1 of 2 - PCV) 1992 Hepatitis B Vaccine (3 of 3 - 3-dose series) 01/01/2000 11/06/1999, 08/03/1997 Diabetes: Hemoglobin A1C 07/06/2022 Diabetes: Ophthalmology Exam 07/06/2022 Diabetes: Pedal Pulse Checked 07/06/2022 Diabetes: Sensory Foot Exam 07/06/2022 Diabetes: Visual Foot Exam 07/06/2022 Influenza Vaccine (Season Ended) 2024 04/14/19, 12/04/2020 Care Teams Boxing And Pressing Supervisor Relationship Specialty Start Date End Date Laina Byrne MD [address] [place] [address] PCP - General Internal Medicine 06/02/22
== END 2024-06-09 12:09 | disposition home or self-care (01) ==
LOC: HO.HOS 10:46
PROVIDERS: PCP Internal Medicine; Visit Provider Physician Assistant
DX: S86.112A Strain of other muscle(s) and tendon(s) of posterior muscle group at lower leg level, left leg, initial encounter (principal)
CPT/HCPCS: 99203; G2211

== ENCOUNTER → 2024-06-09 10:45 | Outpatient (BNVA) | payer OTHER, SELFPAY | PROVIDERS: PCP Internal Medicine; Visit Provider Physician Assistant | DX: S86.112A Strain of other muscle(s) and tendon(s) of posterior muscle group at lower leg level, left leg, initial encounter (principal) | CPT/HCPCS: 99202 ==

== ENCOUNTER 2024-06-20 11:02 | Outpatient (AMB) | payer MEDICAID, SELFPAY ==
--- NOTE | 2024-06-20 11:03 | A.OFFVIS_ITS ---
Vital Signs 06/20/24 11:08 Height 6 ft Weight 306 lb 7.08 oz BMI 41.6 BP 130/80 Blood Pressure Location Rt brachial Position Sitting Pulse 95 Pulse Source Pulse Oximeter Pulse Oximetry (%) 96 Intake Visit Reasons: T2DM Intake Note: Patient presents today for a follow-up on Type 2 Diabetes Mellitus: Last Diabetic eye exam was on: DUE Last Podiatry exam was: 12/16/2022, Finished Cloth Checker Most recent HbA1c: 8.8%, 06/20/2024 Random Glucose- 137 mg/dL, Today Allergies Proventil Allergy (Mild, Uncoded 06/09/24 11:20) rash HPI Comments Details: 38 YO M with PMHx T2DM, HTN, HLD who is seen in F/U for T2DM. Patient last seen 02/02/2024 with an A1c of 8.3%, Hgb A1C 8.8%. His baseline A1cs are in the 11% range. He has been working on decreasing his portions in his lost 6 lb since his last appointment. He was followed by bariatric surgeon in the past but is not interested in bariatric surgery at this point in time. He is tolerating Mounjaro 10 mg well. He had problems with the Ozempic related to GI intolerance and vomiting Initially diagnosed with T2DM in 2009 during a routine physical exam. Was initially started on treatment with Metformin, began using Insulin approximately 1 year later. He previously had failed treatment with Glipizide 10 mg PO BID, and after his initial visit in Endocrine, Humalog was stopped. Ozempic caused vomiting. He has not been testing his blood sugars and would like to go back on a freestyle meter. He does have new insurance Current regimen: Tresiba 36 units QHS Metformin LC6429 mg PO BID Mounjaro 10 mg weekly Jardiance 25 mg PO daily pioglitizone 15 mg daily Some walking/goes to the gym not always consistently Reports no low sugars . Treats lows with food. Family history of T2DM in Mother and Sister. Has retinopathy,Has eyes checked yearly, last eye exam last yr. Needs to make appt Has Neuropathy, Has seen podiatry in the past. Has Charcot foot with h/o fractures in the past Has Nephropathy, on Lisinopril 20 mg PO daily. Microalbumin 06/22 greater than 2000 Has HLD. On Atorvastatin 40 mg PO daily. Denies CAD. Diet:Has had some difficulty controlling portions but is working on this Has difficulty at lunch which tends to be a fast food meal Has had CDE. [facility] screen Fibrosis-4 (Fib-4) Index for liver fibrosis (calculated on lab work done:05/21 ) [0.75 ] points Advanced fibrosis [excluded ] Approximate Fibrosis stage Cassie [0-1 ] *Use with caution in patients <35 or >65 years old, as the score has been shown to be less reliable in these patients. Prior Imaging [] Action Plan: [] rescreen two years from date of screening labs[05/23 ] [facility] Medical History (Updated 06/09/24 @ 11:52 by Iman Rapp PA-C) Acute bacterial pharyngitis Anxiety Depression Insulin dependent diabetes mellitus type IA Morbid obesity Charcot arthropathy Obesity (BMI 30.0-34.9) Microalbuminuria Obesity Vitamin D deficiency HLD (hyperlipidemia) HTN (hypertension) T2DM (type 2 diabetes mellitus) Diabetes type 2, uncontrolled Surgical History (Updated 06/09/24 @ 11:21 by GREGG Morris) H/O foot surgery Hx of eye surgery Hx of shoulder surgery Hx of circumcision Family History Father No problems noted. Mother Diabetes Social History (Updated 06/09/24 @ 11:21 by GREGG Morris) Are you a primary pediatric critical care nurse to a significant other at home: No Do you presently have visiting nurse or other home services: No Alcohol intake: never Patient Tobacco Use Status: Never used Tobacco Current occupational status: unemployed Results AMB Hemoglobin A1c AMB Hemoglobin A1c 8.8 % Last Edit by GREGG Layne on 06/20/24 11:22 Assessment & Plan Assessment & Plan (1) Diabetes type 2, uncontrolled: Code(s): E11.65 - Type 2 diabetes mellitus with hyperglycemia Category: Medical Plan: 38-year-old type 2 diabetic with nephropathy followed by Nephrology. A1c is 8.8 % today in the office. We will increase his Tresiba 42 nits and start short-acting insulin 12 units with his dinner meal. Continue all other medications. A prescription for freestyle Viky 3+ sensor was sent to the pharmacy for use with his iPhone. He would be an excellent candidate for this. He is on multiple daily dose of insulin along with oral medications and has failure to achieve target A1c. He is now followed regularly by Nephrology and Podiatry. Currently has a partial tear in his calf and is in a boot for the next month. Prior to his injury he was going to the gym regularly 3 times per week. Has been awhile since he has seen the contract officer and he will schedule a follow up with both the Kaycee Duran RD and Yennifer Gibson CDE. I will see him back in 1 month to review his glucose numbers on the sensor and make a in a recommendations on titrating insulin. The patient had an opportunity to ask questions regarding treatment plan. The patient expressed understanding and agreement with the above treatment plan. The patient is aware they should contact our office by phone for worsening glucose readings or for any low blood sugars which may warrant a change in diab etes medication. Compliance is encouraged with medications and any followup testing/consults which may have been ordered. Orders: Orders AMB Hemoglobin A1c Today E11.65 - Type 2 diabetes mellitus with hyperglycemia Medications: New blood-glucose sensor (FreeStyle Viky 3 Plus Sensor device) As directed 2 ea 11RF insulin aspart U-100 (Novolog FlexPen U-100 Insulin aspart) 12 units (0.12 mL) subcut .wih dinner 30 days 6 mL 11RF Changed From Tresiba FlexTouch U-100 (insulin degludec) 36 units (0.36 mL) subcut BEDTIME 30 days 12 mL 11RF NS E11.65 - Type 2 diabetes mellitus with hyperglycemia To Tresiba FlexTouch U-100 (insulin degludec) 42 units (0.42 mL) subcut BEDTIME 30 days 18 mL 11RF NS E11.65 - Type 2 diabetes mellitus with hyperglycemia Refilled pioglitazone 15 mg PO DAILY 90 tabs 6RF E11.65 - Type 2 diabetes mellitus with hyperglycemia Tresiba FlexTouch U-100 (insulin degludec) 42 units (0.42 mL) subcut BEDTIME 30 days 18 mL 11RF NS E11.65 - Type 2 diabetes mellitus with hyperglycemia Discontinued blood-glucose meter (FreeStyle Lite Meter kit) Discontinued Reason: Duplicate As directed 1 ea 0RF E11.65 - Type 2 diabetes mellitus with hyperglycemia blood-glucose sensor (FreeStyle Viky 3 Sensor device) Discontinued Reason: Doctor's Order As directed change every 14 days 2 ea 5RF penicillin V potassium Discontinued Reason: Doctor's Order 500 mg PO BID 7 days 14 tabs 0RF B96.89 - Other specified bacterial agents as the cause of diseases classified elsewhere, J02.8 - Acute pharyngitis due to other specified organisms Patient Instructions: The patient was counseled to achieve a target A1C of 7% (154 avg). Fasting blood sugars should be 90-130 in the morning and less than 180 two hours after meals. Reviewed the relationship between poor diabetic control and the development of complications. Coding Level of Care Code Est Pt Level 4 (83494) Complex EM visit Add On G2211 Diagnoses Diabetes type 2, uncontrolled E11.65 Time Spent (min) 51 Comment Time spent reviewing labs/provider notes, face to face, chart doc
[2024-06-20 11:08] VITALS: BP 130/80; PULSE 95; O2SAT 96; BMI 41.6
[2024-06-20 11:16] LABS: Glucose, Whole Blood 137 mg/dL (60-115)
--- OUTSIDE RECORDS SUMMARY | 2024-06-20 13:11 | XMS_ITS | Clinical Summary ---
Author Organization 175 [facility] Address [address] [place] [address] Phone Care Team Providers Care Internal Audit Consultant Name Role Phone Laina Byrne MD Primary Care Provider Allergies Active Allergy Reactions Criticality Noted Date Comments Albuterol 05/02/2024 Encounters Date Type Department Care Team Description 05/02/2024 2:15 PM EST Consult Orthopedic Surgery [facility] [address] [phone] Perez Wilkins DPM Poorly controlled [...] 8:15 AM EDT Office Visit Orthopedic Surgery [facility] [address] [phone] Claudette, Perez A, [address] [address] Health Maintenance Due Date Last Done Comments [...] Test (03/07/2004) Annual BMP Blood Test abstracted [facility] Provider HEALTH MAINTENANCE Final Result * Hemoglobin A1c (03/07/2004) Hemoglobin A1C 5.4 4.0 - 6.0 % Blood Venous blood specimen / Unknown [facility] Provider LAB BLOOD ORDERABLES Aileen l Result * (ABNORMAL) Lipid panel (03/07/2004) LDL/HDL Ratio 4 <=5 Triglycerides 71 <=150 mg/dL Cholesterol 165 <=200 mg/dL HDL 38(A) >=40 mg/dL LDL Cholesterol 113(A) <=100 mg/dL Blood Venous blood specimen / Unknown [facility] Provider LAB BLOOD ORDERABLES Aileen l Result from Last 3 Months or Most Recently Relevant to Health Maintenance Insurance [facility] [employer] Care Teams Internal Audit Consultant Relationship Specialty Start Date End Date Laina Byrne MD PCP - General Internal Medicine 02/14/24
--- OUTSIDE RECORDS SUMMARY | 2024-06-20 13:11 | XMS_ITS | Clinical Summary ---
Author Organization [facility] Address [address] [place] [address] Phone Care Team Providers Care Hot Strip Mill Inspector Name Role Phone Laina Byrne MD Primary Care Provider [phone] Allergies Active Allergy Reactions Criticality Noted Date [...] Health Maintenance Due Date Last Done Comments Hepatitis B Vaccine (3 of 3 - 3-dose series) 01/01/2000 11/06/1999, 08/03/1997 Pneumococcal Vaccine: Peds ( 0 to 5 Years) and At-Risk Patients (6 to 49 Years) (1 of 2 - PCV) 2005 Diabetes: Hemoglobin A1C 07/06/2022 Diabetes: Ophthalmology Exam 07/06/2022 Diabetes: Pedal Pulse Checked 07/06/2022 Diabetes: Sensory Foot Exam 07/06/2022 Diabetes: Visual Foot Exam 07/06/2022 Influenza Vaccine (Season Ended) 2024 04/14/19, 12/04/2020 Care Teams Hot Strip Mill Inspector Relationship Specialty Start Date End Date Laina Byrne MD [address] [place] [address] PCP - General Internal Medicine 06/02/22
== END 2024-06-20 11:39 | disposition home or self-care (01) ==
LOC: HO.ENCR 11:03
PROVIDERS: PCP Internal Medicine; Visit Provider Nurse Practitioner Adult Health
DX: E11.65 Type 2 diabetes mellitus with hyperglycemia (principal)
CPT/HCPCS: 99214

== ENCOUNTER → 2024-06-20 11:02 | Outpatient (BNVA) | payer OTHER, SELFPAY | PROVIDERS: PCP Internal Medicine; Visit Provider Nurse Practitioner Adult Health | DX: E11.65 Type 2 diabetes mellitus with hyperglycemia (principal); J02.8 Acute pharyngitis due to other specified organisms; B96.89 Other specified bacterial agents as the cause of diseases classified elsewhere | CPT/HCPCS: 82947; 83036; 99212 ==

== ENCOUNTER 2024-06-26 11:26 | Outpatient (REF) | payer OTHER, SELFPAY ==
[2024-06-26 12:07] LABS: Anion Gap 13 (12-20); Blood Urea Nitrogen 35 mg/dL (9-16); Calcium 8.9 mg/dL (8.4-10.2); Carbon Dioxide 26 mmol/L (22-29); Chloride 107 mmol/L (96-108); Estimated Glomerular Filt Rate 42; Glucose Random 95 mg/dL (60-115); Potassium 5.1 mmol/L (3.3-5.1); Sodium 141 mmol/L (135-145)
--- OUTSIDE RECORDS SUMMARY | 2024-06-26 13:51 | XMS_ITS | Clinical Summary ---
Author Organization 175 [facility] Address [address] [place] [address] Phone Care Team Providers Care Ambulance Mechanic Name Role Phone Laina Byrne MD Primary Care Provider Allergies Active Allergy Reactions Criticality Noted Date Comments Albuterol 05/02/2024 Encounters Date Type Department Care Team Description 05/02/2024 2:15 PM EST Consult Orthopedic Surgery [facility] [address] [phone] Perez Wilkins DPM Poorly controlled [...] 8:15 AM EDT Office Visit Orthopedic Surgery [facility] [address] [phone] Claudette, Perez A, [address] [address] Health Maintenance Due Date Last Done Comments [...] Test (03/07/2004) Annual BMP Blood Test abstracted [facility] Provider HEALTH MAINTENANCE Final Result * Hemoglobin A1c (03/07/2004) Hemoglobin A1C 5.4 4.0 - 6.0 % Blood Venous blood specimen / Unknown [facility] Provider LAB BLOOD ORDERABLES Aileen l Result * (ABNORMAL) Lipid panel (03/07/2004) LDL/HDL Ratio 4 <=5 Triglycerides 71 <=150 mg/dL Cholesterol 165 <=200 mg/dL HDL 38(A) >=40 mg/dL LDL Cholesterol 113(A) <=100 mg/dL Blood Venous blood specimen / Unknown [facility] Provider LAB BLOOD ORDERABLES Aileen l Result from Last 3 Months or Most Recently Relevant to Health Maintenance Insurance [facility] PUBLIC PLANS Care Teams Ambulance Mechanic Relationship Specialty Start Date End Date Laina Byrne MD PCP - General Internal Medicine 02/14/24
--- OUTSIDE RECORDS SUMMARY | 2024-06-26 13:51 | XMS_ITS | Clinical Summary ---
Author Organization [facility] Address [address] [place] [address] Phone Care Team Providers Care Drier Belt Conveyor Name Role Phone Laina Byrne MD Primary [...] (Season Ended) 2024 04/14/19, 12/04/2020 Care Teams Drier Belt Conveyor Relationship Specialty Start Date End Date Laina Byrne MD [address] [place] [address] PCP - General Internal Medicine 06/02/22
== END 2024-06-26 11:27 | disposition home or self-care (01) ==
LOC: HO.LAB 11:26
PROVIDERS: Internal Medicine Hypertension Specialist; PCP Internal Medicine; Visit Provider Surgery
DX: N18.9 Chronic kidney disease, unspecified (principal)
CPT/HCPCS: 36415; 80048

== ENCOUNTER 2024-06-27 11:20 | Outpatient (AMB) | payer OTHER, SELFPAY ==
[2024-06-27 11:27] VITALS: BP 118/88; PULSE 102; O2SAT 96; BMI 41.8
--- NOTE | 2024-06-27 11:27 | HO.NEPHOV_ITS ---
Vital Signs 06/27/24 11:27 Height 6 ft Weight 308 lb 6 oz BMI 41.8 BP 118/88 Blood Pressure Location Rt brachial Position Sitting Pulse 102 H Pulse Source Pulse Oximeter Pulse Oximetry (%) 96 Oxygen Delivery Method Room Air Intake Visit Reasons: Proteinuria Allergies Proventil Allergy (Mild, Uncoded 06/27/24 11:29) rash Medication List - Last Reconciled 06/27/24 by Kevin Bolanos MD albuterol sulfate 90 mcg/actuation 2 puffs inhalation Q6H PRN amlodipine 10 mg PO DAILY atorvastatin 80 mg PO DAILY blood sugar diagnostic (FreeStyle Lite Strips) As directed tests 4X/day blood-glucose meter (FreeStyle Lite Meter kit) As directed checks 4 X/day blood-glucose sensor (FreeStyle Viky 3 Plus Sensor device) As directed cholecalciferol (vitamin D3) (Vitamin D3) 50 mcg PO DAILY 90 days insulin aspart U-100 (Novolog FlexPen U-100 Insulin aspart) 12 units (0.12 mL) subcut .wih dinner 30 days insulin needles (disposable) As directed Jardiance (empagliflozin) 25 mg PO DAILY 30 days NS lancets (FreeStyle Lancets) As directed chacks 4/day lisinopril 40 mg PO DAILY 30 days metformin ER 1,000 mg (2 x 500 mg) PO BID 90 days pen needle, diabetic (BD Ultra-Fine Micro Pen Needle) 1x daily pioglitazone 15 mg PO DAILY sertraline 50 mg PO DAILY tirzepatide (Mounjaro) 10 mg (0.5 mL) subcut QWEEK 28 days Tresiba FlexTouch U-100 (insulin degludec) 42 units (0.42 mL) subcut BEDTIME 30 days NS HPI Comments Details: Sean is a pleasant 38-year-old man with a history of longstanding diabetes mellitus and hypertension who has been referred for evaluation of proteinuria. He has a history of obesity and hyperlipidemia as well. Recent serum creatinine was 1.32 mg/dL. He had about 2.4 g of proteinuria based on the protein creatinine ratio. He is currently on lisinopril as well as SGLT2 inhibitors. 01/31/24;Ran out of Jardiance and Lisinopril 40 mg QD for 2 weeks 03/14/24;Lost 5 lbs;on wt management program. Waiting for bariatric surgery 4. Off the weight management program Injury to left leg and has a cast [facility] Medical History Acute bacterial pharyngitis Anxiety Depression Insulin dependent diabetes mellitus type IA Morbid obesity Charcot arthropathy Obesity (BMI 30.0-34.9) Microalbuminuria Obesity Vitamin D deficiency HLD (hyperlipidemia) HTN (hypertension) T2DM (type 2 diabetes mellitus) Diabetes type 2, uncontrolled Surgical History H/O foot surgery Hx of eye surgery Hx of shoulder surgery Hx of circumcision Family History Father No problems noted. Mother Diabetes Social History Are you a primary wound care technician to a significant other at home: No Do you presently have visiting nurse or other home services: No Alcohol intake: never Patient Tobacco Use Status: Never used Tobacco Current occupational status: unemployed Physical Exam Vital Signs: Last Vital Signs Pulse 102 H 06/27/24 11:27 BP 118/88 06/27/24 11:27 Pulse Ox 96 06/27/24 11:27 Oxygen Delivery Method Room Air 06/27/24 11:27 BMI result Body Mass Index 41.8 Comfortable Neck supple no JVD. Lungs entry equal no rales. Heart S1-S2 heard no gallop or rub. Abdomen soft nontender. Neuro alert awake oriented. No asterixis. Extremities no edema. Results Reviewed Nephrology Results: Sodium 141 mmol/L (135-145) 06/26/24 Potassium 5.1 mmol/L (3.3-5.1) 06/26/24 Chloride 107 mmol/L (96-108) 06/26/24 Carbon Dioxide 26 mmol/L (22-29) 06/26/24 BUN 35 mg/dL (9-16) H 06/26/24 Creatinine 1.84 mg/dL (0.5-1.4) H 06/26/24 Calcium 8.9 mg/dL (8.4-10.2) 06/26/24 Assessment & Plan Assessment & Plan (1) T2DM (type 2 diabetes mellitus): Code(s): E11.9 - Type 2 diabetes mellitus without complications Category: Medical Qualifiers: Diabetes mellitus complication status: with hyperglycemia Diabetes mellitus superintendent marine oil terminal insulin use: without superintendent marine oil terminal use Qualified Code(s): E11.65 - Type 2 diabetes mellitus with hyperglycemia (2) HTN (hypertension): Code(s): I10 - Essential (primary) hypertension Category: Medical Qualifiers: Hypertension type: unspecified Qualified Code(s): I10 - Essential (primary) hypertension (3) CKD (chronic kidney disease): Code(s): N18.9 - Chronic kidney disease, unspecified Category: Medical Plan Sean is a 38-year-old man with a history of longstanding hypertension diabetes mellitus and obesity who has mild CKD with nephrotic range proteinuria. He probably has underlying diabetic nephropathy. Non diabetic causes seem unlikely at this point He had mild CKD probably CKD stage 2 with a serum creatinine of 1.32. in May 2023 Repeat cr was 1.8 in Nov 2023 Recent renal ultrasonogram was unremarkable and there was no obstruction. Serological workup was unremarkable Bump most likely due to hypoperfusion Continue to hold Chlorthalidone Creatinien stable at 1.8 Goal is to slow the progression of renal disease. Maintain A1c less than 7% Maintain blood pressure less than 130/80 Continue to avoid nephrotoxic agents including NSAIDs. Discussed importance of weight loss. Agree with both LEVI inhibitors and SGLT2 inhibitors for cardiorenal protection. Encouraged him to stay on low-sodium diet. He had mild anemia in the past. Hemoglobin still remains low at 12.1 with low MCV iron and TIBC ferritin were normal Orders: Orders Basic Metabolic Panel 6 Months N18.9 - Chronic kidney disease, unspecified Creatinine Urine 06/27/24 N18.9 - Chronic kidney disease, unspecified Total Protein Urine Random 06/27/24 N18.9 - Chronic kidney disease, unspecified Coding Level of Care Code Est Pt Level 4 (23043) Diagnoses Type 2 diabetes mellitus with hyperglycemia, without long-term current use of insulin E11.65 Diabetes mellitus complication status: with hyperglycemia Diabetes mellitus superintendent marine oil terminal insulin use: without penitentiary use Hypertension, unspecified type I10 Hypertension type: unspecified CKD (chronic kidney disease) N18.9
--- OUTSIDE RECORDS SUMMARY | 2024-06-27 13:30 | XMS_ITS | Clinical Summary ---
Author Organization [facility] Address [address] [place] [address] Phone Care Team Providers Care Gelatin Plant Supervisor Name Role Phone Laina Byrne MD [...] (Season Ended) 2024 04/14/19, 12/04/2020 Care Teams Gelatin Plant Supervisor Relationship Specialty Start Date End Date Laina Byrne MD [address] [place] [address] PCP - General Internal Medicine 06/02/22
--- OUTSIDE RECORDS SUMMARY | 2024-06-27 13:30 | XMS_ITS | Clinical Summary ---
Author Organization 175 [facility] Address [address] [place] [address] Phone Care Team Providers Care Thread Dresser Name Role Phone Laina Byrne MD Primary Care Provider [phone] Allergies Active Allergy Reactions Criticality Noted Date Comments Albuterol 05/02/2024 Encounters Date Type Department Care Team Description 05/02/2024 2:15 PM EST Consult Orthopedic Surgery [facility] [address] [phone] Perez Wilkins DPM Poorly [...] 8:15 AM EDT Office Visit Orthopedic Surgery [facility] [address] [phone] Claudette, Perez A, [address] [address] Health Maintenance Due Date Last Done Comments [...] Test (03/07/2004) Annual BMP Blood Test abstracted [facility] Provider HEALTH MAINTENANCE Final Result * Hemoglobin A1c (03/07/2004) Hemoglobin A1C 5.4 4.0 - 6.0 % Blood Venous blood specimen / Unknown [facility] Provider LAB BLOOD ORDERABLES Aileen l Result * (ABNORMAL) Lipid panel (03/07/2004) LDL/HDL Ratio 4 <=5 Triglycerides 71 <=150 mg/dL Cholesterol 165 <=200 mg/dL HDL 38(A) >=40 mg/dL LDL Cholesterol 113(A) <=100 mg/dL Blood Venous blood specimen / Unknown [facility] Provider LAB BLOOD ORDERABLES Aileen l Result from Last 3 Months or Most Recently Relevant to Health Maintenance Insurance [facility] PUBLIC PLANS Care Teams Thread Dresser Relationship Specialty Start Date End Date Laina Byrne MD PCP - General Internal Medicine 02/14/24
== END 2024-06-27 11:40 | disposition home or self-care (01) ==
LOC: HO.HKA 11:23
PROVIDERS: PCP Internal Medicine; Visit Provider Internal Medicine Hypertension Specialist
DX: E11.65 Type 2 diabetes mellitus with hyperglycemia (principal); I12.9 Hypertensive chronic kidney disease with stage 1 through stage 4 chronic kidney disease, or unspecified chronic kidney disease; N18.9 Chronic kidney disease, unspecified
CPT/HCPCS: 99214

== ENCOUNTER → 2024-06-27 11:20 | Outpatient (BNVA) | payer OTHER, SELFPAY | PROVIDERS: PCP Internal Medicine; Visit Provider Internal Medicine Hypertension Specialist | DX: R80.9 Proteinuria, unspecified (principal); E78.5 Hyperlipidemia, unspecified; E11.65 Type 2 diabetes mellitus with hyperglycemia; E11.22 Type 2 diabetes mellitus with diabetic chronic kidney disease; I12.9 Hypertensive chronic kidney disease with stage 1 through stage 4 chronic kidney disease, or unspecified chronic kidney disease; N18.9 Chronic kidney disease, unspecified; E66.9 Obesity, unspecified; Z68.41 Body mass index [BMI] 40.0-44.9, adult | CPT/HCPCS: 99212 ==

== ENCOUNTER 2024-07-10 10:00 | Outpatient (RCR) | payer OTHER, SELFPAY ==
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
--- NOTE | 2024-10-13 15:55 | MHC.PT.DC ---
[facility] [place] [facility] [place] [facility] [place] [facility] [address] Slime Lyons [address] [phone] F: [phone] F: [phone] F: [phone] F: [phone] Physical Therapy Discharge Report Diagnosis: L ACHILLES INJURY Date of Surgery: NA Date of Evaluation: 06/27/24 Date of Discharge: 10/13/24 Treatments to Date: 4 Cancellations to Date: No Shows to Date: Discharge Status: Improved Function Independent with HEP Patient Elected to Stop Recommend MD Follow-up Discharge Summary: Pt LAST SEEN ON 07/10. PER THAT NOTE, Pt HAD MET STGS BUT NOT LTGS. Pt Pt THEN CANCELLED FURTHER PT SESSIONS WITHOUT RESCHEDULING. OF NOTE, PER RECORD Pt HAS FOLLOWED UP WITH ORTHO 08/11 FOR PROBABLE RE-INJURY/FURTHER INJURY AND PT RE-RECOMMENDED Electronically signed by: TRINA BELLE PT Please sign and return to therapist. Thank you for your referral.
== END 2024-10-13 15:56 | disposition home or self-care (01) ==
LOC: HO.PT 10:00
PROVIDERS: PCP Internal Medicine; Visit Provider Physician Assistant
DX: S86.112A Strain of other muscle(s) and tendon(s) of posterior muscle group at lower leg level, left leg, initial encounter (principal)
CPT/HCPCS: 97035; 97110; 97161; 97530; 97535

== ENCOUNTER 2024-07-11 09:22 | Outpatient (AMB) | payer MEDICAID, SELFPAY ==
--- NOTE | 2024-07-11 09:43 | A.OFFVIS_ITS ---
VS Expanded 07/11/24 09:45 07/13/24 14:02 Height 6 ft 6 ft Weight 309 lb 8.464 oz 310 lb BMI 42.0 42.0 Intake Visit Reasons: T2DM Allergies Proventil Allergy (Mild, Uncoded 06/27/24 11:29) rash Nutrition Presentation Details: Pt presents for MNT for uncontrolled T2DM A1c 8.8% 05/2024 Pt reports having difficulties with food textures typical food intake fruits: 0-1/d ve/wk dairy : 3+/d fish 0-/wk starches > 30 beverages: water/juice/soda , shakes etoh/smoking:d enies BS Monitoring Most Recent Diabetes Results: Creatinine 1.84 mg/dL (0.5-1.4) H 06/26/24 Blood Urea Nitrogen 35 mg/dL (9-16) H 06/26/24 Sodium 141 mmol/L (135-145) 06/26/24 Potassium 5.1 mmol/L (3.3-5.1) 06/26/24 Chloride 107 mmol/L (96-108) 06/26/24 Carbon Dioxide 26 mmol/L (22-29) 06/26/24 Calcium 8.9 mg/dL (8.4-10.2) 06/26/24 OIH-Kjfdwyx-Xz.Jeor Equation Height: 6 ft Weight: 310 lb Resting Metabolic Rate: 2370.69 Calculated Activity Level: Sedentary Calories Needed to Maintain Weight: 2844.83 Diagnosis Nutrition problem #1: altered nutrition labs and excessive energy intake As related to (etiology) #1: diagnosis As evidenced by (sign/symptom) #1: abnormal lab values [facility] Medical History Acute bacterial pharyngitis Anxiety Depression Insulin dependent diabetes mellitus type IA Morbid obesity Charcot arthropathy Obesity (BMI 30.0-34.9) Microalbuminuria Obesity Vitamin D deficiency HLD (hyperlipidemia) HTN (hypertension) T2DM (type 2 diabetes mellitus) Diabetes type 2, uncontrolled Surgical History H/O foot surgery Hx of eye surgery Hx of shoulder surgery Hx of circumcision Family History Father No problems noted. Mother Diabetes Social History Are you a primary home care coordinator to a significant other at home: No Do you presently have visiting nurse or other home services: No Alcohol intake: never Patient Tobacco Use Status: Never used Tobacco Current occupational status: unemployed Assessment & Plan Assessment & Plan (1) T2DM (type 2 diabetes mellitus): Code(s): E11.9 - Type 2 diabetes mellitus without complications Category: Medical Qualifiers: Diabetes mellitus complication status: with hyperglycemia Diabetes mellitus termite inspector insulin use: without long-term use Qualified Code(s): E11.65 - Type 2 diabetes mellitus with hyperglycemia Plan: Wt: 140 Kg ( 07/23 ) Est kcal needs as per MSJ: 2800 (40% carb, 30% protein/fat) Est fluid needs as per 25-30 ml/d: 4200 Est prot per day as per 1 g/kg bw: 140 Recommend fiber intake : 8-10 g per day and gradually increase to 25-28 g per day for women and 35-38 g for men or as tolerated Recommend sodium intake per day : less than 1500 mg less than 2000 mg Educated patient on: ( R = reviewed V = verbalizes understanding N/R = needs review N/A = not applicable * Food sources of carbohydrate, adequate serving sizes and its role in various health conditions: R V N/R * Differences between complex carbohydrates a simple carbohydrates, role of fiber in diet: R * Lean protein sources of foods: R V NR * Differences between types of fats and role in diet (mono on saturated fat fatty acids, saturated fatty acids, trans fats): R V N/R * Food sources of sodium in salt and healthy modifications for heart health in kidney health: R V R/V * Vitamins and minerals: R V N/R * Healthy plate method concept: R * Physical activity: Benefits a precaution: R V N/R * Hypoglycemia protocol (rule of 15): R V N/R * Dietary prevention of Hyperglycemia: R * how to add flavors, to foods, change textures: R Patient Instructions: Work on reducing on total carb to less than 100 g at meals, gradually working on healthy plate method - see meal ideas Coding Level of Care Code Nutr Indiv Intake (92020) Diagnoses Type 2 diabetes mellitus with hyperglycemia, without long-term current use of insulin E11.65 Diabetes mellitus complication status: with hyperglycemia Diabetes mellitus long-term insulin use: without long-term use Time Spent (min) 30
[2024-07-11 09:45] VITALS: BMI 42.0
--- OUTSIDE RECORDS SUMMARY | 2024-07-11 09:54 | XMS_ITS | Clinical Summary ---
Author Organization 175 [facility] Address [address] [place] [address] Phone Care Team Providers Care Operations Representative Name Role Phone Laina Byrne MD Primary Care Provider Allergies Active Allergy Reactions Criticality Noted Date Comments Albuterol 05/02/2024 Encounters Date Type Department Care Team Description 05/02/2024 2:15 PM EST Consult Orthopedic Surgery [facility] [address] [phone] Perez Wilkins DPM Poorly controlled [...] Care Team (Late st Contact Info) Description 09/11/2024 3:00 PM EDT Office Visit Orthopedic Surgery [facility] [address] [phone] Claudette, Perez A, [address] [address] Health Maintenance Due Date Last Done Comments [...] Test (03/07/2004) Annual BMP Blood Test abstracted [facility] Provider HEALTH MAINTENANCE Final Result * Hemoglobin A1c (03/07/2004) Hemoglobin A1C 5.4 4.0 - 6.0 % Blood Venous blood specimen / Unknown [facility] Provider LAB BLOOD ORDERABLES Aileen l Result * (ABNORMAL) Lipid panel (03/07/2004) LDL/HDL Ratio 4 <=5 Triglycerides 71 <=150 mg/dL Cholesterol 165 <=200 mg/dL HDL 38(A) >=40 mg/dL LDL Cholesterol 113(A) <=100 mg/dL Blood Venous blood specimen / Unknown [facility] Provider LAB BLOOD ORDERABLES Aileen l Result from Last 3 Months or Most Recently Relevant to Health Maintenance Insurance [facility] PUBLIC PLANS Care Teams Operations Representative Relationship Specialty Start Date End Date Laina Byrne MD PCP - General Internal Medicine 02/14/24
--- OUTSIDE RECORDS SUMMARY | 2024-07-11 09:54 | XMS_ITS | Clinical Summary ---
Author Organization [facility] Address [address] [place] [address] Phone Care Team Providers Care Drying Frame Operator Name Role Phone Laina Byrne MD Primary [...] (Season Ended) 2024 04/14/19, 12/04/2020 Care Teams Drying Frame Operator Relationship Specialty Start Date End Date Laina Byrne MD [address] [place] [address] PCP - General Internal Medicine 06/02/22
[2024-07-13 14:02] VITALS: BMI 42.0
== END 2024-07-11 10:36 | disposition home or self-care (01) ==
LOC: HO.ENCR 09:22
PROVIDERS: PCP Internal Medicine; Visit Provider Dietitian, Registered
DX: E11.65 Type 2 diabetes mellitus with hyperglycemia (principal)

== ENCOUNTER → 2024-07-11 09:22 | Outpatient (BNVA) | payer OTHER, SELFPAY | PROVIDERS: PCP Internal Medicine; Visit Provider Dietitian, Registered | DX: E11.65 Type 2 diabetes mellitus with hyperglycemia (principal) | CPT/HCPCS: 97802 ==

== ENCOUNTER 2024-07-13 09:58 | Outpatient (AMB) | payer OTHER, SELFPAY ==
--- NOTE | 2024-07-13 10:03 | A.OFFVIS_ITS ---
Vital Signs 07/13/24 10:04 Height 6 ft Weight 310 lb BMI 42.0 Intake Visit Reasons: OV-4-6wk f/u Left gastroc strain Intake Note: Sean is a 38 year old male who presents today for a follow up of left gastroc strain. At last visit he placed in a tall boot weight bearing as tolerated with wedges. He was instructed to remove 1 wedge a week. He was referred to physical therapy to work on range of motion, strength and heel cord stretching. Today patient reports started PT. Pain level(1-2). No other concerns He would like to discuss a work status form. Allergies Proventil Allergy (Mild, Uncoded 06/27/24 11:29) rash HPI HPI OV-4-6wk f/u Left gastroc strain: Details: 38-year-old gentleman returns to the office today for a follow-up left gastroc strain. He has been working with physical therapy and has discontinued use of the boot and is walking with regular street shoes. He has no concerns today. PENDING SALE TO [facility] Medical History Acute bacterial pharyngitis Anxiety Depression Insulin dependent diabetes mellitus type IA Morbid obesity Charcot arthropathy Obesity (BMI 30.0-34.9) Microalbuminuria Obesity Vitamin D deficiency HLD (hyperlipidemia) HTN (hypertension) T2DM (type 2 diabetes mellitus) Diabetes type 2, uncontrolled Surgical History H/O foot surgery Hx of eye surgery Hx of shoulder surgery Hx of circumcision Family History Father No problems noted. Mother Diabetes Social History Are you a primary manager medicare marketing to a significant other at home: No Do you presently have visiting nurse or other home services: No Alcohol intake: never Patient Tobacco Use Status: Never used Tobacco Current occupational status: unemployed Review of Systems Const All systems reviewed & are unremarkable except as noted in HPI and below Physical Exam Vital Signs: BMI result Body Mass Index 42.0 Const General: cooperative and no acute distress Orientation/consciousness: patient oriented x3 Resp Effort & Inspection: normal respiratory effort and able to speak in complete sentences Cardio Peripheral pulses: Peripheral pulses 2+ throughout Neuro General: patient oriented x3 Extrem Other: Left Achilles tendon intact there is no palpable deformity. No significant tenderness over the Achilles tendon. He has a negative Hilliard's. No pain along the distal aspect of the gastroc muscle with subtle palpable knot. He is able to passively plantar and dorsiflex. Neurovascularly intact. Assessment & Plan Assessment & Plan (1) Gastrocnemius strain, left: Code(s): S86.112A - Strain of other muscle(s) and tendon(s) of posterior muscle group at lower leg level, left leg, initial encounter Category: Medical Plan: Patient has improved significantly since his previous visit with me. He is able to participate in daily activities without limitations. If there is any questions or concerns he can contact our office otherwise follow up as needed. Coding Level of Care Code Est Pt Level 3 (53831) Complex EM visit Add On G2211 Diagnoses Gastrocnemius strain, left S86.112A
[2024-07-13 10:04] VITALS: BMI 42.0
--- OUTSIDE RECORDS SUMMARY | 2024-07-13 10:54 | XMS_ITS | Clinical Summary ---
Author Organization [facility] Address [address] [place] [address] Phone Care Team Providers Care Fern Cutter Name Role Phone Laina Byrne MD Primary Care Provider [phone] Allergies Active Allergy Reactions Criticality Noted Date [...] (Season Ended) 2024 04/14/19, 12/04/2020 Care Teams Fern Cutter Relationship Specialty Start Date End Date Laina Byrne MD [address] [place] [address] PCP - General Internal Medicine 06/02/22
--- OUTSIDE RECORDS SUMMARY | 2024-07-13 10:54 | XMS_ITS | Clinical Summary ---
Author Organization 175 [facility] Address [address] [place] [address] Phone Care Team Providers Care Shop Clerk Name Role Phone Laina Byrne MD Primary Care Provider [phone] Allergies Active Allergy Reactions Criticality Noted Date Comments Albuterol 05/02/2024 Encounters Date Type Department Care Team Description 05/02/2024 2:15 PM EST Consult Orthopedic Surgery [facility] [address] [phone] Perez Wilkins DPM Poorly controlled [...] 3:00 PM EDT Office Visit Orthopedic Surgery [facility] [address] [phone] Claudette, Perez A, [address] [address] Health Maintenance Due Date Last Done Comments [...] Test (03/07/2004) Annual BMP Blood Test abstracted [facility] Provider HEALTH MAINTENANCE Final Result * Hemoglobin A1c (03/07/2004) Hemoglobin A1C 5.4 4.0 - 6.0 % Blood Venous blood specimen / Unknown [facility] Provider LAB BLOOD ORDERABLES Aileen l Result * (ABNORMAL) Lipid panel (03/07/2004) LDL/HDL Ratio 4 <=5 Triglycerides 71 <=150 mg/dL Cholesterol 165 <=200 mg/dL HDL 38(A) >=40 mg/dL LDL Cholesterol 113(A) <=100 mg/dL Blood Venous blood specimen / Unknown [facility] Provider LAB BLOOD ORDERABLES Aileen l Result from Last 3 Months or Most Recently Relevant to Health Maintenance Insurance [facility] PUBLIC PLANS Care Teams Shop Clerk Relationship Specialty Start Date End Date Laina Byrne MD PCP - General Internal Medicine 02/14/24
== END 2024-07-13 10:43 | disposition home or self-care (01) ==
LOC: HO.HOS 09:59
PROVIDERS: PCP Internal Medicine; Visit Provider Physician Assistant
DX: S86.112A Strain of other muscle(s) and tendon(s) of posterior muscle group at lower leg level, left leg, initial encounter (principal)
CPT/HCPCS: 99213; G2211

== ENCOUNTER → 2024-07-13 09:58 | Outpatient (BNVA) | payer OTHER, SELFPAY | PROVIDERS: PCP Internal Medicine; Visit Provider Physician Assistant | DX: S86.112D Strain of other muscle(s) and tendon(s) of posterior muscle group at lower leg level, left leg, subsequent encounter (principal); X58.XXXD Exposure to other specified factors, subsequent encounter | CPT/HCPCS: 99212 ==

== ENCOUNTER 2024-07-18 12:50 | Outpatient (AMB) | payer OTHER, SELFPAY ==
--- NOTE | 2024-07-18 13:17 | A.OFFVIS_ITS ---
Intake Intake Visit Reasons: DM Cake Inspector Required: No Accompanied by: Self / Same As Patient Allergies Proventil Allergy (Mild, Uncoded 06/27/24 11:29) rash HPI Comprehensive Diabetes Asmnt Most Recent Diabetes Results: 2 Hemoglobin A1c 10.0 % 10/17/19 Microalb/Creat Ratio 2427.5 ug/mg cr (<30) H 11/16/23 Cholesterol 150 mg/dL (<200) 06/04/23 HDL Cholesterol 35 mg/dL (>40) L 06/04/23 Triglycerides 93 mg/dL (<150) 06/04/23 Creatinine 1.84 mg/dL (0.5-1.4) H 06/26/24 Blood Urea Nitrogen 35 mg/dL (9-16) H 06/26/24 Sodium 141 mmol/L (135-145) 06/26/24 Potassium 5.1 mmol/L (3.3-5.1) 06/26/24 Chloride 107 mmol/L (96-108) 06/26/24 Carbon Dioxide 26 mmol/L (22-29) 06/26/24 Calcium 8.9 mg/dL (8.4-10.2) 06/26/24 AST 28 U/L (5-37) 06/08/22 ALT 45 U/L (0-40) H 06/08/22 Total Protein 5.2 g/dL (6.5-8.0) L 06/08/22 Albumin 3.2 g/dL (3.5-5.0) L 06/08/22 FOR[facility]LY [facility] Medical History Acute bacterial pharyngitis Anxiety Depression Insulin dependent diabetes mellitus type IA Morbid obesity Charcot arthropathy Obesity (BMI 30.0-34.9) Microalbuminuria Obesity Vitamin D deficiency HLD (hyperlipidemia) HTN (hypertension) T2DM (type 2 diabetes mellitus) Diabetes type 2, uncontrolled Surgical History H/O foot surgery Hx of eye surgery Hx of shoulder surgery Hx of circumcision Family History Father No problems noted. Mother Diabetes Social History Are you a primary career development facilitator to a significant other at home: No Do you presently have visiting nurse or other home services: No Alcohol intake: never Patient Tobacco Use Status: Never used Tobacco Current occupational status: unemployed Assessment & Plan Assessment & Plan (1) T2DM (type 2 diabetes mellitus): Code(s): E11.9 - Type 2 diabetes mellitus without complications Qualifiers: Diabetes mellitus appliance mechanic insulin use: without appliance mechanic use Diabetes mellitus complication status: with hyperglycemia Qualified Code(s): E11.65 - Type 2 diabetes mellitus with hyperglycemia Plan: Learning objectives: The patient was provided with verbal and written education on the following topics as outlined below. The patient met all learning objectives and was able to verbalize understanding and provide teach back of education topics discussed . The patient was provided with the opportunity to ask questions and all questions were answered. Patient Assessment Assess patient education level/literacy/barriers Patient questions/concerns, patient reports currently is not taking Mounjaro 10 mg weekly or NovoLog before meals due to insurance issue He is taking Tresiba 42 units daily Jardiance 25 mg daily Metformin 1000 mg b.i.d. What is Diabetes? Pathophysiology How the body produces and uses insulin Identify type of DM Risk factors Signs of Diabetes Brief overview of Diabetes Management Monitoring blood sugar Following a meal plan Regular exercise Maintaining a healthy weight Taking medication as needed Members of the care team (PCP, RN, MA, RD, CDE, diesel locomotive firer) Blood glucose monitoring When/how often to test Target blood sugar ranges Patient only had 4-1/2 days worth of glucose data, in that 4-1/2 days patient had several episodes of hypoglycemia. Suggested to patient he reduce Tresiba 42 units to 35 units to see if hypoglycemia resolves If he continues to have hypoglycemia contact provider or certified adaptive physical educator further instructions Introduction to Nutrition Importance of healthy diet in managing DM Diet is personalized to individual preference Review patient?s regular diet/food preferences Who prepares meals/does food shopping/ Dining out?/ Barriers? How diet effects glucose Eating 3 balanced meals a day with small, healthy snacks between meals Review food groups Carbohydrates: What is a carbohydrate/Which food/food groups are considered carbohydrates Effect of carbohydrates on blood glucose Portion sizes Reading food labels Basic carb counting (if applicable per nursing assessment) Plate method Meal planning Recommendations: Follow plate method, consistent carbs and read nutritional labels. Smart Goal: Patient will use rule of 15s to treat hypoglycemia Educational Materials: The patient was provided with the following written educational materials: Planning Healthy Meals, How to treat hypoglycemia Handouts Patient Response to instructions: Comprehension of Instructions: Fair Readiness to make changes: Contemplation How confident they feel about making changes: Positive Portions of this note were created using voice recognition software, please excuse any words or phrases that may have been misinterpreted. Patient Instructions: Reduce Tresiba 42 units, to reduce to 35 units Include regular daily activity. ADA recommends 30 minutes of exercise 5 days a week. Weight loss talk to PCP or Property Disposal Manager before starting new plan. Test blood sugar as directed; Fasting and 2hpp largest meal. Watch trends in results. Utilize results and to assess how food, physical activity and medications affect blood sugar results. Bring glucometer or CGM to next visit. Be knowledgeable about diabetes medication, its action, side effects, efficacy, toxicity, prescribed dosage, appropriate timing and frequency of administration, effect of missed and delayed doses and instructions for storage, travel and safety. Problem solving techniques to monitor hypo/hyperglycemia episodes and treatments. Reduce risk reduction behaviors, smoking cessation, regular eye, foot and dental examinations. Coding Level of Care Code Est Pt Level 1 (05264) Diagnoses Type 2 diabetes mellitus with hyperglycemia, without long-term current use of insulin E11.65 Diabetes mellitus appliance mechanic insulin use: without appliance mechanic use Diabetes mellitus complication status: with hyperglycemia
--- OUTSIDE RECORDS SUMMARY | 2024-07-18 13:56 | XMS_ITS | Clinical Summary ---
Author Organization [facility] Address [address] [place] [address] Phone Care Team Providers Care Nerve Specialist Name Role Phone Laina Byrne MD Primary [...] (Season Ended) 2024 04/14/19, 12/04/2020 Care Teams Nerve Specialist Relationship Specialty Start Date End Date Laina Byrne MD [address] [place] [address] PCP - General Internal Medicine 06/02/22
--- OUTSIDE RECORDS SUMMARY | 2024-07-18 13:56 | XMS_ITS | Clinical Summary ---
Author Organization [address] [facility] Address [address] [place] [address] Phone Care Team Providers Care Mingler Operator Name Role Phone Laina Byrne MD Primary Care Provider [phone] Allergies Active Allergy Reactions Criticality Noted Date Comments Albuterol 05/02/2024 Encounters Date Type Department Care Team Description 05/02/2024 2:15 PM EST Consult Orthopedic Surgery [facility] [address] [phone] Perez Wilkins DPM Poorly controlled [...] 3:00 PM EDT Office Visit Orthopedic Surgery [facility] [address] [phone] Claudette, Perez A, [address] [address] Health Maintenance Due Date Last Done Comments [...] Test (03/07/2004) Annual BMP Blood Test abstracted [facility] Provider HEALTH MAINTENANCE Final Result * Hemoglobin A1c (03/07/2004) Hemoglobin A1C 5.4 4.0 - 6.0 % Blood Venous blood specimen / Unknown [facility] Provider LAB BLOOD ORDERABLES Aileen l Result * (ABNORMAL) Lipid panel (03/07/2004) LDL/HDL Ratio 4 <=5 Triglycerides 71 <=150 mg/dL Cholesterol 165 <=200 mg/dL HDL 38(A) >=40 mg/dL LDL Cholesterol 113(A) <=100 mg/dL Blood Venous blood specimen / Unknown [facility] Provider LAB BLOOD ORDERABLES Aileen l Result from Last 3 Months or Most Recently Relevant to Health Maintenance Insurance [facility] [employer] Care Teams Mingler Operator Relationship Specialty Start Date End Date Laina Byrne MD PCP - General Internal Medicine 02/14/24
== END 2024-07-18 13:40 | disposition home or self-care (01) ==
LOC: HO.ENCR 12:51
PROVIDERS: PCP Internal Medicine; Visit Provider Registered Nurse Diabetes Educator
DX: E11.65 Type 2 diabetes mellitus with hyperglycemia (principal)

== ENCOUNTER → 2024-07-18 12:50 | Outpatient (BNVA) | payer OTHER, SELFPAY | PROVIDERS: PCP Internal Medicine; Visit Provider Registered Nurse Diabetes Educator | DX: E11.65 Type 2 diabetes mellitus with hyperglycemia (principal); Z79.4 Long term (current) use of insulin | CPT/HCPCS: 99211 ==

== ENCOUNTER 2024-07-31 07:12 | Outpatient (REF) | payer OTHER, SELFPAY ==
--- NOTE | ~2024-07-31 | MR_ITS ---
EXAMINATION: MR LOWER EXTREMITY NON JOINT WITHOUT CONTRAST, LEFT CLINICAL INFORMATION: Injured a few months ago, pain most intense back of ankle . Patient underwent physical therapy, pain recurred 2 weeks ago, swelling at the ankle region COMPARISON: None available. TECHNIQUE: MRI of the left lower leg was performed using routine sequences on a high-field scanner. FINDINGS: Soft tissues: Fluid signal results in mild to moderate reticulation of the subcutaneous adipose tissues. There is mild feathery fluid signal in the medial greater than lateral mid to lower gastrocnemius muscles. There is gross thickening of the distal 10 cm of the Achilles tendon. The tendon shows increased signal on all imaging sequences through this region. There is eccentric fluid signal through the medial portion of the thickened tendon becomes linear and extends to the central portion of the tendon near the calcaneal footprint. There is a deep focal attenuation of the tendon centrally at the calcaneal flow present. Other ankle tendons appear intact. Ankle ligaments appear intact. Soft tissues are otherwise unremarkable. Marrow: Bone marrow signal is physiologic. MR/MR Tibia LT wo Contrast IMPRESSION: There is a grade 2 strain involving the distal 10 cm of the Achilles tendon with associated grade 1 strain of the medial greater than lateral gastrocnemius muscles. Electronically signed by: Carlton Bhatti MD 07/31/2024 12:08 PM EDT
== END 2024-07-31 07:13 | disposition home or self-care (01) ==
LOC: HO.MRI 07:12
PROVIDERS: PCP Internal Medicine; Visit Provider Physician Assistant
DX: S86.112A Strain of other muscle(s) and tendon(s) of posterior muscle group at lower leg level, left leg, initial encounter (principal)
CPT/HCPCS: 73718

== ENCOUNTER → 2024-07-31 07:22 | Outpatient (BNV) | payer OTHER, SELFPAY | PROVIDERS: PCP Internal Medicine; Visit Provider Radiology Diagnostic Radiology | DX: M25.572 Pain in left ankle and joints of left foot (principal) | CPT/HCPCS: 73718 ==

== ENCOUNTER 2024-08-11 09:22 | Outpatient (AMB) | payer MEDICAID, SELFPAY ==
--- NOTE | 2024-08-11 07:43 | A.OFFVIS_ITS ---
Vital Signs 08/11/24 09:26 Height 6 ft Weight 310 lb 0.902 oz BMI 42.0 BP 120/80 Blood Pressure Location Rt brachial Position Sitting Pulse 80 Pulse Source Pulse Oximeter Pulse Oximetry (%) 98 Oxygen Delivery Method Room Air Intake Visit Reasons: T2DM Intake Note: Patient presents today for a follow-up on Type 2 Diabetes Mellitus: Last Diabetic eye exam was on: DUE Last Podiatry exam was: 12/16/2022, [facility] Most recent HbA1c: 8.8%, 06/20/2024 Random Glucose- 112 mg/dL, Today Machine Farmworker Required: No Accompanied by: Self / Same As Patient Allergies Proventil Allergy (Mild, Uncoded 08/11/24 09:26) rash HPI Comments Details: 39YO M with PMHx T2DM, HTN, HLD, charcot foot who is seen in F/U for T2DM. Patient last seen 06/30/24. A1C 06/20/24 8.8% 02/02/2024 8.3%, Hgb A1C 8.8%. His baseline A1cs have been in the 11% range. He has been working on decreasing his portions. He was followed by bariatric surgeon in the past but is not interested in bariatric surgery at this point in time. He is tolerating Mounjaro 10 mg well. He had problems with the Ozempic and trulicity in the past: GI intolerance and vomiting Initially diagnosed with T2DM in 2009 during a routine physical exam. Was initially started on treatment with Metformin, began using Insulin approximately 1 year later. He previously had failed treatment with Glipizide 10 mg PO BID, and after his initial visit in Endocrine, Humalog was stopped. Ozempic caused vomiting. Current regimen: Tresiba 35 units QHS Metformin [id number] mg PO BID Mounjaro 10 mg weekly Jardiance 25 mg PO daily pioglitizone 15 mg daily Some walking/goes to the gym not always consistently Reports no low sugars . Treats lows with food. Family history of T2DM in Mother and Sister. Has retinopathy,Has eyes checked yearly, last eye exam last yr. Needs to make appt Has Neuropathy, Is following regularly by podiatry Has Charcot foot with h/o fractures in the past He has follow up with Podiatry in his seen Orthopedic surgery today for his right foot which he injured while in [place] last week. He was seen in the ER ultrasound was negative for DVT and no fractures per patient history. Has Nephropathy, on Lisinopril 20 mg PO daily. Microalbumin 06/22 greater than 1999 followed by [facility] with the appointment scheduled for November. EGFR 42 has been stable 05/2024 last checked Has HLD. On Atorvastatin 40 mg PO daily. Denies CAD. Diet:Has had some difficulty controlling portions but is working on this Has difficulty at lunch which tends to be a fast food meal Has had CDE. [facility] screen Fibrosis-4 (Fib-4) Index for liver fibrosis (calculated on lab work done:05/21 ) [0.75 ] points Advanced fibrosis [excluded ] Approximate Fibrosis stage Cassie [0-1 ] *Use with caution in patients <35 or >65 years old, as the score has been shown to be less reliable in these patients. Prior Imaging [] Action Plan: [] rescreen two years from date of screening labs[05/23 ] [facility] Medical History Acute bacterial pharyngitis Anxiety Depression Insulin dependent diabetes mellitus type IA Morbid obesity Charcot arthropathy Obesity (BMI 30.0-34.9) Microalbuminuria Obesity Vitamin D deficiency HLD (hyperlipidemia) HTN (hypertension) T2DM (type 2 diabetes mellitus) Diabetes type 2, uncontrolled Surgical History H/O foot surgery Hx of eye surgery Hx of shoulder surgery Hx of circumcision Family History Father No problems noted. Mother Diabetes Social History Are you a primary healthcare consulting manager to a significant other at home: No Do you presently have visiting nurse or other home services: No Alcohol intake: never Patient Tobacco Use Status: Never used Tobacco Current occupational status: unemployed Physical Exam Vital Signs: Last Vital Signs Pulse 80 08/11/24 09:26 BP 120/80 08/11/24 09:26 Pulse Ox 98 08/11/24 09:26 Oxygen Delivery Method Room Air 08/11/24 09:26 BMI result Body Mass Index 42.0 Const Other: Absence of Cushingoid features. Absence of acromegalic features. Neck exam reveals nl size thyroid about 15 gms. No thyroid nodules palpable. Heart S1 S2, Reg R/R. No M/R G. Skin exam reveals absence of vitiligo or acanthosis nigricans. no edema Visual exam of foot performed. Right foot only. No ulcerations or open lesions. No inter digit maceration or fissuring. No onychomycosis, no callouses. Sensation intact to monofilament exam. Vibratory sensation is normal with 128 Hz tuning fork. Charcot deformity Results Reviewed Results Reviewed: Laboratory Last Values Glucose (Clinic) 112 mg/dL (60-115) 08/11/24 09:33 Assessment & Plan Assessment & Plan (1) T2DM (type 2 diabetes mellitus): Code(s): E11.9 - Type 2 diabetes mellitus without complications Category: Medical Qualifiers: Diabetes mellitus long term acute care registered nurse insulin use: without long term acute care registered nurse use Diabetes mellitus complication status: with hyperglycemia Qualified Code(s): E11.65 - Type 2 diabetes mellitus with hyperglycemia Plan: 39-year-old type 2 diabetic with Charcot arthropathy, nephropathy, retinopathy and neuropathy with improved glycemic control, GME my on sensor 6.6%. He will continue current treatment. He has been off Mounjaro for a few weeks. When he starts he may need to reduce his Tresiba further. He will contact us if he needs adjustment. He was advised his prior authorization for Mounjaro expires the week of January and that he should contact us 1 week before. Check your feet daily looking for any signs of infection, drainage, redness, ulceration and seek medical attention if this occurs. Break in shoes gradually and do not wear open-toed shoes or walk stocking footed or barefooted. The patient had an opportunity to ask questions regarding treatment plan. The patient expressed understanding and agreement with the above treatment plan. The patient is aware they should contact our office by phone for worsening glucose readings or for any low blood sugars which may warrant a change in diabetes medication. Compliance is encouraged with medications and any followup testing/consults which may have been ordered. He has a follow up appointment with both Kaycee Duran RD and Yennifer ARMAS and we will see a new DM provider in our office in 3 months. Orders: Orders Lipid Panel Today E11.65 - Type 2 diabetes mellitus with hyperglycemia Complete Blood Count Auto Diff Today E11.65 - Type 2 diabetes mellitus with hyperglycemia Medications: Changed From Tresiba FlexTouch U-100 (insulin degludec) 42 units (0.42 mL) subcut BEDTIME 30 days 18 mL 11RF NS E11.65 - Type 2 diabetes mellitus with hyperglycemia To Tresiba FlexTouch U-100 (insulin degludec) 35 units (0.35 mL) subcut BEDTIME 30 days 12 mL 11RF NS E11.65 - Type 2 diabetes mellitus with hyperglycemia Refilled tirzepatide (Mounjaro) 10 mg (0.5 mL) subcut QWEEK 28 days 2 mL 11RF Coding Level of Care Code Est Pt Level 4 (25181) Complex EM visit Add On G2211 Diagnoses Type 2 diabetes mellitus with hyperglycemia, without long-term current use of insulin E11.65 Diabetes mellitus long term acute care registered nurse insulin use: without long term acute care registered nurse use Diabetes mellitus complication status: with hyperglycemia Time Spent (min) 30 Comment Time spent reviewing labs/provider notes, face to face, chart doc
[2024-08-11 09:26] VITALS: BP 120/80; PULSE 80; O2SAT 98; BMI 42.0
[2024-08-11 09:36] LABS: Glucose, Whole Blood 112 mg/dL (60-115)
--- OUTSIDE RECORDS SUMMARY | 2024-08-11 09:48 | XMS_ITS | Clinical Summary ---
Author Organization 175 [facility] Address [address] [place] [address] Phone Care Team Providers Care Labor Delivery Specialist Name Role Phone Laina Byrne MD Primary Care Provider Allergies Active Allergy Reactions Criticality Noted Date Comments Albuterol 05/02/2024 Social History Tobacco Use Types Packs/Day Years [...] 3:00 PM EDT Office Visit Orthopedic Surgery - [place] [address] [phone] Perez Wilkins DPM [address] [address] Health Maintenance Due Date Last Done Comments [...] Test (03/07/2004) Annual BMP Blood Test abstracted us Historical Provider HEALTH MAINTENANCE Final Result * Hemoglobin A1c (03/07/2004) Hemoglobin A1C 5.4 4.0 - 6.0 % Blood Venous blood specimen / Unknown [facility] Provider LAB BLOOD ORDERABLES Aileen l Result * (ABNORMAL) Lipid panel (03/07/2004) LDL/HDL Ratio 4 <=5 Triglycerides 71 <=150 mg/dL Cholesterol 165 <=200 mg/dL HDL 38(A) >=40 mg/dL LDL Cholesterol 113(A) <=100 mg/dL Blood Venous blood specimen / Unknown [facility] Provider LAB BLOOD ORDERABLES Aileen l Result from Last 3 Months or Most Recently Relevant to Health Maintenance Insurance [facility] [employer] Care Teams Labor Delivery Specialist Relationship Specialty Start Date End Date Laina Byrne MD PCP - General Internal Medicine 02/14/24
== END 2024-08-11 09:56 | disposition home or self-care (01) ==
LOC: HO.ENCR 09:23
PROVIDERS: PCP Internal Medicine; Visit Provider Nurse Practitioner Adult Health
DX: E11.65 Type 2 diabetes mellitus with hyperglycemia (principal)
CPT/HCPCS: 99214

== ENCOUNTER 2024-08-11 09:59 | Outpatient (AMB) | payer MEDICAID, SELFPAY ==
--- NOTE | 2024-08-11 10:03 | A.OFFVIS_ITS ---
Vital Signs 08/11/24 10:06 Height 6 ft Weight 310 lb BMI 42.0 Intake Visit Reasons: OV- LT tibia MRI review Intake Note: Sean is a 39 year old male who presents today for a MRI review of his left tibia. Patient mentions that his pain is 03/10 on the pain scale. He states that his boot is giving relief. Allergies Proventil Allergy (Mild, Uncoded 08/11/24 09:26) rash HPI HPI OV- LT tibia MRI review: Details: 39-year-old gentleman returns to the office today for a follow-up of his left calf/Achilles tendon injury. He was previously seen by me for a left calf strain in used a boot with wedges and also attended physical therapy and was recovering quite well. An MRI was done which showed a calf and Achilles strain. He recently traveled to [place] where he states he lost his balance and was about to fall and landed placing all his weight on his left leg and felt an unusual discomfort and popping sensation. He was seen at a medical facility in [place] where he was placed in a boot. He states he has some difficulty with weight-bearing and has a lot of swelling in the lower calf and ankle region. He presents today for further evaluation. [facility] Medical History Acute bacterial pharyngitis Anxiety Depression Insulin dependent diabetes mellitus type IA Morbid obesity Charcot arthropathy Obesity (BMI 30.0-34.9) Microalbuminuria Obesity Vitamin D deficiency HLD (hyperlipidemia) HTN (hypertension) T2DM (type 2 diabetes mellitus) Diabetes type 2, uncontrolled Surgical History H/O foot surgery Hx of eye surgery Hx of shoulder surgery Hx of circumcision Family History Father No problems noted. Mother Diabetes Social History Are you a primary menagerie caretaker to a significant other at home: No Do you presently have visiting nurse or other home services: No Alcohol intake: never Patient Tobacco Use Status: Never used Tobacco Current occupational status: unemployed Review of Systems Const All systems reviewed & are unremarkable except as noted in HPI and below Physical Exam Vital Signs: BMI result Body Mass Index 42.0 Extrem Other: Left calf and Achilles is normal to inspection however he does have some tenderness in the calf region along the muscle belly of the gastroc. There is significant swelling along the insertion point of the Achilles tendon with a palpable defect. He is able to actively plantar flex with reasonable strength. He has a positive Hilliard's. Neurovascularly intact. Assessment & Plan Assessment & Plan (1) Achilles tendon injury: Code(s): S86.009A - Unspecified injury of unspecified Achilles tendon, initial encounter Category: Medical Plan: This is a 39-year-old diabetic male with a subacute on chronic Achilles injury. I do suspect he has a complete tear but this is unlikely to be treatable given the time that has passed since the initial injury. In addition he is diabetic and is adamant that he wants to keep working. At this point given these factors I recommend nonoperative management. I did discuss the potential for re-injury and strength on push off but he is okay with this and would like to proceed forward with nonsurgical treatment. Physical therapy was written. Orders: Orders PT Evaluation and Treatment 08/11/24 S86.012A - Strain of left Achilles tendon, initial encounter Coding Level of Care Code Est Pt Level 4 (95237) Complex EM visit Add On G2211 Diagnoses Achilles tendon injury S86.009A
[2024-08-11 10:06] VITALS: BMI 42.0
== END 2024-08-11 10:43 | disposition home or self-care (01) ==
LOC: HO.HOS 10:00
PROVIDERS: PCP Internal Medicine; Visit Provider Physician Assistant
DX: S86.009A Unspecified injury of unspecified Achilles tendon, initial encounter (principal)
CPT/HCPCS: 99214

== ENCOUNTER 2024-08-11 10:49 | Outpatient (REF) | payer OTHER, SELFPAY ==
[2024-08-11 13:08] LABS: MANUAL DIFF FLAG NO
[2024-08-11 13:14] LABS: Basophils Absolute Auto 0.1 X10*3/uL (0.0-0.2); Basophils Percent Auto 0.6 % (0-2); Eosinophils Absolute Auto 0.7 X10*3/uL (0.0-0.4); Eosinophils Percent Auto 5.8 % (0-4); Hematocrit 34.7 % (42.0-52.0); Hemoglobin 11.2 g/dl (14.0-18.0); Imm Gran Abs Auto 0.05 X10*3/uL (0.00-0.03); Imm Gran Pct Auto 0.4 % (0.0-0.4); Lymphocytes Absolute Auto 1.7 X10*3/uL (1.2-4.9); Lymphocytes Percent Auto 14.6 % (20-40); Mean Corpuscular HGB Conc 32.3 g/dl (31.0-36.0); Mean Corpuscular Hemoglobin 25.7 pg (27.0-33.0); Mean Corpuscular Volume 79.8 fL (80.0-98.0); Monocytes Absolute Auto 0.7 X10*3/uL (0.1-1.2); Neutrophils Absolute Auto 8.4 x10*3/uL (2.0-8.3); Neutrophils Percent Auto 72.6 % (45-73); Platelet Count 281 X10*3/uL (160-400); Red Blood Count 4.35 X10*6/uL (4.60-5.80); Red Cell Distribution Width 12.8 % (11.0-16.0); White Blood Count 11.6 X10*3/uL (4.8-10.8)
[2024-08-11 13:55] LABS: Cholesterol 113 mg/dL (<200); HDL Cholesterol 26 mg/dL (>40); LDL Cholesterol Calculated 61 mg/dL (<100); Triglycerides 133 mg/dL (<150)
== END 2024-08-11 10:50 | disposition home or self-care (01) ==
LOC: HO.10HDL 10:49
PROVIDERS: Visit Provider Nurse Practitioner Adult Health
DX: E11.65 Type 2 diabetes mellitus with hyperglycemia (principal); E11.610 Type 2 diabetes mellitus with diabetic neuropathic arthropathy; E11.21 Type 2 diabetes mellitus with diabetic nephropathy; E11.319 Type 2 diabetes mellitus with unspecified diabetic retinopathy without macular edema; E11.40 Type 2 diabetes mellitus with diabetic neuropathy, unspecified; Z79.85 Long-term (current) use of injectable non-insulin antidiabetic drugs
CPT/HCPCS: 36415; 80061; 82947; 85025; 99212

== ENCOUNTER 2024-10-02 09:55 | Outpatient (REF) | payer OTHER, SELFPAY ==
--- OUTSIDE RECORDS SUMMARY | 2024-10-02 10:34 | XMS_ITS | Clinical Summary ---
Author Organization [facility] Address [address] [place] [address] Phone Care Team Providers Care Production Supervisor Name Role Phone Laina Byrne MD [...] Visual Foot Exam 07/06/2022 Influenza Vaccine (#1) 2024 04/14/2022, 2020 Care Teams Production Supervisor Relationship Specialty Start Date End Date Laina Byrne MD [address] [place] [address] PCP - General Internal Medicine 06/02/22
--- OUTSIDE RECORDS SUMMARY | 2024-10-02 10:34 | XMS_ITS | Clinical Summary ---
Author Organization 175 [facility] Address [address] [place] [address] Phone Care Team Providers Care Sorting Supervisor Name Role Phone Laina Byrne MD Primary Care Provider [phone] Allergies Active Allergy Reactions Criticality Noted Date [...] Care Team (Late st Contact Info) Description 11/16/2024 9:15 AM EDT Office Visit Orthopedic Surgery - [place] [address] [phone] Perez Wilkins DPM [address] [address] Health Maintenance Due Date Last Done Comments Hepatitis B Vaccines (1 of 3 - 19+ 3-dose series) 2005 Cholesterol Screening (Lipid Panel) 12/13/2023 03/07/2004 HIV Screening 12/13/2023 Hepatitis C Screening 12/13/2023 Social Influencers of Health Screening 12/13/2023 Depression Screening 03/01/2024 Influenza Vaccine (#1) 2024 , 10/17/2022, 04/14/2022, Additional history exists DTaP,Tdap,and Td Vaccines (2 - Td or Tdap) 05/25/2032 05/25/2022 Pneumococcal Vaccine: Pediatrics (0 to 5 Years) and At-Risk Patients (6 to 49 Years) Completed 05/25/2022 COVID-19 Vaccine Completed 12/25/2023, , 04/08/2022, Additional history exists HIB Vaccines Aged Out [...] Most Recently Relevant to Health Maintenance Insurance [facility] [employer] Care Teams Sorting Supervisor Relationship Specialty Start Date End Date Laina Byrne MD PCP - General Internal Medicine 02/14/24
--- OUTSIDE RECORDS SUMMARY | 2024-10-02 10:34 | XMS_ITS | Clinical Summary ---
Author Organization [facility] Address [address] [place] [phone] Phone Care Team Providers Care Superintendent Drilling Name Role Phone Laina Byrne MD Primary Care Provide r Allergies Active Allergy Reactions Criticality Noted Date Comments Albuterol 01/13/2019 Medications metFORMIN (GLUCOPHAGE) 1000 MG tablet Take 1,000 mg by mouth 2 (two) times a day with meals. Active lisinopril (PRINIVIL,ZESTRI L) 10 MG tablet Take 40 mg by mouth daily. Active atorvastatin (LIPITOR) 40 MG tablet Take 80 mg by mouth nightly at bedtime. Active Medication-Free TextIndications: Jardiance Take 25 mg by mouth daily. Indications: Jardiance Active Medication-Free TextIndications: wednesdays Inject 0.25 mg under the skin once a week. Indications: wednesdays Active terbinafine HCl (LAMISIL) 1 % cream Apply topically 2 (two) times a day. Active tadalafiL (CIALIS, ADCIRCA) 20 MG tablet Take 1 tablet (20 mg total) by mouth daily as needed. 10 tablet 3 03/14/19 21 Active papaverine-phent olamine-alprosta dil (TRIMIX ) 30 mg-2 mg-20 mcg/mL injection Inject 5 units intercavernosally. Increase by 5-10 units PRN. Max 60 units. Use no more than 3 times per week. 5 mL 6 11/12/19 21 Active JARDIANCE 25 mg tablet Take 25 mg by mouth daily. Active sertraline (ZOLOFT) 50 MG tablet Take 50 mg by mouth daily. Active pioglitazone (ACTOS) 15 MG tablet Take 15 mg by mouth daily. Active cholecalciferol (VITAMIN D3) 2,000 unit capsule Vitamin D3 50 mcg (2,000 unit) capsule TAKE 1 CAPSULE BY MOUTH ONCE DAILY Active insulin degludec U-100 (TRESIBA FLEXTOUCH U-100) injection pen 18 Units. 06/10/19 23 Active MOUNJARO 2.5 mg/0.5 mL PnIj 08/30/19 24 Active OZEMPIC 2 mg/dose (8 mg/3 mL) subcutaneous injection pen INJECT 2 MG SUBCUTANEOUSLY EVERY 7 DAYS IN THE ABDOMEN, THIGHS OR UPPER ARM. ROTATE INJECTION SITES 08/19/19 24 Active Active Problems Problem Noted Date Diagnosed Date Pilar cyst of scalp 09/01/2023 Inclusion cyst 09/01/2023 Family History Medical History Relation Comments Diabetes Father Diabetes Mother Relation Status Comments Father Alive Mother Alive Social History Tobacco Use Types Packs/Day Years Used Date Smoking Tobacco: Never Smokeless Tobacco: Never Alcohol Use Standard Drinks/Week Comments Not Currently 0 (1 standard drink = 0.6 oz pur e alcohol) Education Answer Date Recorded Are you interested in more education? Not on elvia e 06/26/2022 Are you concerned about learning? Not on file 06/26/2022 No 06/26/2022 No 06/26/2022 Digital Access Answer Date Recorded No 07/25/2022 No 07/25/2022 Reliable internet access at home? Not on file 07/25/2022 Device with a working camera? Not on file Sex and Gender Information Value Date Recorded Sex Assigned at Male 01/13/2019 10:09 AM EST Legal Sex Male 9:40 AM EST Gender Identity Male 01/13/2019 10:09 AM EST Sexual Orientation Straight 12/07/2019 10 :25 AM EDT Last Filed Vital Signs Vital Sign Reading Time Taken Comments Blood Pressure 143/84 09/01/2023 2:12 PM EDT Pulse 90 09/01/2023 2:12 PM EDT Temperature 36.9 C (98.4 F) 01/13/2019 1:42 PM EST Respiratory Rate 18 01/13/2019 1:42 PM EST Oxygen Saturation 97% 01/13/2019 1:42 PM EST Inhaled Oxygen Concentration - - Weight 131.7 kg (290 lb 6.4 oz) 09/01/2023 2:12 PM EDT Height 182.9 cm (6') 09/01/2023 2:12 PM EDT Body Mass Index 39.39 09/01/2023 2:12 PM EDT Plan of Treatment Health Maintenance Due Date Last Done Comments Adult Td,Tdap Booster 1986 LIPID PANEL 1986 DEPRESSION SCREENING 1998 CREATININE LEVEL 01/14/2020 01/13/2019 POTASSIUM LEVEL 01/14/2020 01/13/2019 SCREENING FOR DIABETES 2021 COVID-19 VACCINE (3 - 2023-2 5 season) 2023 04/19/2020, 03/22/2020 SMOKING STATUS SCREENING (On ce After 26 Yrs) Completed 09/01/2023 HEPATITIS C SCREENING Completed 09/21/2023 HIV ONE-TIME SCREENING (18-6 5 YEARS) Completed 09/21/2023 HEPATITIS A VACCINES Aged Out No long er eligible based on patient's age to complete this topic HIB VACCINES Aged Out No longer eligi ble based on patient's age to complete this topic MENINGOCOCCAL VACCINES (ACWY) Aged Out No longer eligible based on patient's age to complete this topic MENINGOCOCCAL VACCINES (B) Aged Out N o longer eligible based on patient's age to complete this topic PNEUMOCOCCAL VACCINES (0-49 years) Aged Out No longer eligible b ased on patient's age to complete this topic Medical Devices Not on file Procedures Procedure Name Priority Date/Time Associated Diagnosis Comments HEPATITIS C ANTIBODY, QUALITATIVE Routine 09/21/2023 10:41 AM EDT Need for hepatitis C screening test BASIC METABOLIC PANEL STAT 01/13/2019 10:37 AM EST from Last 3 Months or Most Recently Relevant to Health Maintenance Results * Hepatitis C antibody, qualitative (09/21/2023 10:41 AM EDT) HCV NON-REACTIV E NON-REACTI VE [facility] Blood 09/21/2023 10:4 1 AM EDT 09/21/2023 10:43 AM EDT us Geo Lyon MD LAB BLOOD ORDERABLES Final Resu lt Performing Organization Address City/[facility]/ZIP Co de Phone Number [address] [address] * (ABNORMAL) Basic metabolic panel (01/13/2019 10:37 AM EST) SODIUM 136 133 - 146 mmol/L [facility] CHLORIDE 99 96 - 108 mmol/L [facility] POTASSIUM 4.7 3.3 - 5.1 mmol/L [facility] CO2 23 21 - 35 mmol/L [facility] BUN 20(H) 6 - 19 mg/dL [facility] CREATININE 0.80 0.5 - 1.5 mg/dL [facility] GLUCOSE 174(H) 70 - 99 mg/dL [facility] CALCIUM 9.5 8.4 - 10.3 mg/dL [facility] EGFR 118 >59 mL/min/1.7 3m2 [facility] Comment:If patient is black, multiply result by 1.159. Estimated glomerular filtration rate calculated using the CKD-EPI equation. ANION GAP 19 10 - 20 mmol/L [facility] Blood 01/13/2019 10:3 7 AM EST 01/13/2019 10:54 AM EST us Mart TORRES LAB BLOOD ORDERABLES Final Resul t Performing Organization Address [facility]/ZIP Co de Phone Number [address] [address] from Last 3 Months or Most Recently Relevant to Health Maintenance Insurance [facility] Pay-Me [facility] DIRECT CONNECTORCARE DIRECT CONNECTORCARE DIRECT CONNECTORCARE DIRECT [facility] CONNECTORCARE DIRECT [facility] [place] [id number] Care Teams Superintendent Drilling Relationship Specialty Start Date End Date Laina Byrne MD [address] [place] [phone] PCP - General Internal Medicine 01/13/19 Additional Source Comments The information contained in this document represents components of the legal health record. It is not the complete legal health record.[facility]
[2024-10-02 10:45] LABS: MANUAL DIFF FLAG NO
[2024-10-02 10:50] LABS: Hematocrit 36.0 % (42.0-52.0); Hemoglobin 11.2 g/dl (14.0-18.0); Imm Gran Abs Auto 0.07 X10*3/uL (0.00-0.03); Imm Gran Pct Auto 0.6 % (0.0-0.4); Lymphocytes Absolute Auto 1.8 X10*3/uL (1.2-4.9); Mean Corpuscular HGB Conc 31.1 g/dl (31.0-36.0); Mean Corpuscular Hemoglobin 25.5 pg (27.0-33.0); Mean Corpuscular Volume 82.0 fL (80.0-98.0); NRBC Abs Auto 0.000 X10*3/uL (0.0-0.012); NRBC Pct Auto 0.0 /100WBC (0.0-0.2); Platelet Count 260 X10*3/uL (160-400); Red Blood Count 4.39 X10*6/uL (4.60-5.80); White Blood Count 12.6 X10*3/uL (4.8-10.8)
[2024-10-02 11:05] LABS: Anion Gap 11 (12-20); Blood Urea Nitrogen 37 mg/dL (9-16); Calcium 8.8 mg/dL (8.4-10.2); Carbon Dioxide 27 mmol/L (22-29); Chloride 112 mmol/L (96-108); Estimated Glomerular Filt Rate 40; Potassium 4.8 mmol/L (3.3-5.1); Sodium 145 mmol/L (135-145)
== END 2024-10-02 09:56 | disposition home or self-care (01) ==
LOC: HO.10HDL 09:55
PROVIDERS: Visit Provider Internal Medicine
DX: D72.829 Elevated white blood cell count, unspecified (principal); E87.5 Hyperkalemia; I12.9 Hypertensive chronic kidney disease with stage 1 through stage 4 chronic kidney disease, or unspecified chronic kidney disease; E11.22 Type 2 diabetes mellitus with diabetic chronic kidney disease; N18.32 Chronic kidney disease, stage 3b
CPT/HCPCS: 36415; 80048; 85025

== ENCOUNTER 2024-10-25 08:41 | Outpatient (AMB) | payer OTHER, SELFPAY ==
--- NOTE | 2024-10-25 08:46 | MHC.OFFVIS ---
Vital Signs 10/25/24 08:48 Weight 300 lb Intake Visit Reasons: ov-left Achilles tendon rupture Intake Note: Sean is a 39 year old male who presents today for a follow up of left achilles tendon injury. At his last visit he was referred to physical therapy. Patient reports he feels improvement after working with PT. He denies pain. He's concern is ambulating, when he walks he says he is constantly on edge that he will hurt it again. He noticed strength the more he ambulates. Denies numbness and tingling. Allergies Proventil Allergy (Mild, Uncoded 10/25/24 08:50) rash Medication List - Last Reconciled 10/25/24 by Iman Rapp PA-C albuterol sulfate 90 mcg/actuation 2 puffs inhalation Q6H PRN amlodipine 10 mg PO DAILY atorvastatin 80 mg PO DAILY blood sugar diagnostic (FreeStyle Lite Strips) As directed tests 4X/day blood-glucose meter (FreeStyle Lite Meter kit) As directed checks 4 X/day blood-glucose sensor (FreeStyle Viky 3 Plus Sensor device) As directed cholecalciferol (vitamin D3) (Vitamin D3) 50 mcg PO DAILY 90 days insulin lispro 12 units (0.12 mL) subcut DAILY 30 days NS insulin needles (disposable) As directed Jardiance (empagliflozin) 25 mg PO DAILY 30 days NS lancets (FreeStyle Lancets) As directed chacks 4/day lisinopril 40 mg PO DAILY 30 days metformin ER 1,000 mg (2 x 500 mg) PO BID 90 days pen needle, diabetic (BD Ultra-Fine Micro Pen Needle) 1x daily pioglitazone 15 mg PO DAILY sertraline 50 mg PO DAILY tirzepatide (Mounjaro) 10 mg (0.5 mL) subcut QWEEK 28 days Tresiba FlexTouch U-100 (insulin degludec) 35 units (0.35 mL) subcut BEDTIME 30 days NS HPI HPI ov-left Achilles tendon rupture: Details: 39-year-old gentleman returns to the office today for a follow up of his left Achilles tendon injury. He has completed physical therapy and does feel things have improved as far as strength and stability. He has transitioned to regular street shoes and wears a compression sleeve for support. He has no significant concerns today. [facility] Medical History Acute bacterial pharyngitis Anxiety Depression Insulin dependent diabetes mellitus type IA Morbid obesity Charcot arthropathy Obesity (BMI 30.0-34.9) Microalbuminuria Obesity Vitamin D deficiency HLD (hyperlipidemia) HTN (hypertension) T2DM (type 2 diabetes mellitus) Diabetes type 2, uncontrolled Surgical History H/O foot surgery Hx of eye surgery Hx of shoulder surgery Hx of circumcision Family History Father No problems noted. Mother Diabetes Social History Are you a primary rn long term care to a significant other at home: No Do you presently have visiting nurse or other home services: No Alcohol intake: never Patient Tobacco Use Status: Never used Tobacco Current occupational status: unemployed Review of Systems Const All systems reviewed & are unremarkable except as noted in HPI and below Physical Exam Extrem Other: Left Achilles is normal to inspection without tenderness to palpation over the Achilles tendon. No swelling. He is able to actively plantar flex with good strength. Neurovascularly intact. Assessment & Plan Assessment & Plan (1) Achilles tendon injury: Code(s): S86.009A - Unspecified injury of unspecified Achilles tendon, initial encounter Category: Medical Plan: The patient has significant improvement in his condition and I feel he is able to continue with activities as tolerated. I did stress the importance of working on his strength exercises for continued stability. He should use caution with impact activities if there is any pain. If any symptoms arise she will contact our office otherwise follow up as needed. Coding Level of Care Code Est Pt Level 3 (61574) Complex EM visit Add On G2211 Diagnoses Achilles tendon injury S86.009A
--- OUTSIDE RECORDS SUMMARY | 2024-10-25 09:04 | XMS_ITS | Clinical Summary ---
Author Organization [facility] Address [address] [place] [address] Phone Care Team Providers Care Linotype Worker Name Role Phone Laina Byrne MD Primary [...] AM EDT) HCV NON-REACTIV E NON-REACTI VE [facility] Blood 09/21/2023 10:4 1 AM EDT 09/21/2023 10:43 AM EDT us Geo Lyon MD LAB BLOOD ORDERABLES Final Resu lt Performing Organization Address City/[facility]/ZIP Co de Phone Number [address] [address] * (ABNORMAL) Basic metabolic panel (01/13/2019 10:37 AM EST) SODIUM 136 133 - 146 mmol/L [facility] CHLORIDE 99 96 - 108 mmol/L [facility] POTASSIUM 4.7 3.3 - 5.1 mmol/L [facility] CO2 23 21 - 35 mmol/L [facility] BUN 20(H) 6 - 19 mg/dL [facility] CREATININE 0.80 0.5 - 1.5 mg/dL [facility] GLUCOSE 174(H) 70 - 99 mg/dL [facility] CALCIUM 9.5 8.4 - 10.3 mg/dL [facility] EGFR 118 >59 mL/min/1.7 3m2 [facility] Comment:If patient is black, multiply result by 1.159. Estimated glomerular filtration rate calculated using the CKD-EPI equation. ANION GAP 19 10 - 20 mmol/L [facility] Blood 01/13/2019 10:3 7 AM EST 01/13/2019 10:54 AM EST us Mart TORRES LAB BLOOD ORDERABLES Final Resul t Performing Organization Address [facility]/ZIP Co de Phone Number [address] [address] from Last 3 Months or Most Recently Relevant to Health Maintenance Insurance [facility] [employer] [facility] DIRECT CONNECTORCARE DIRECT CONNECTORCARE DIRECT CONNECTORCARE DIRECT [facility] CONNECTORCARE DIRECT [facility] [place] [id number] Care Teams Linotype Worker Relationship Specialty Start Date End Date Laina Byrne MD [address] [place] [id number] PCP - General Internal Medicine 01/13/19 Additional Source Comments The information contained in this document represents components of the legal health record. It is not the complete legal health record.[facility]
--- OUTSIDE RECORDS SUMMARY | 2024-10-25 09:04 | XMS_ITS | Clinical Summary ---
Author Organization [facility] Address [address] [place] [address] Phone Care Team Providers Care Licensed Physical Therapist Name Role Phone Laina Byrne MD Primary [...] Upcoming Encounters Date Type Department Care Team ([facility] st Contact Info) Description 11/16/2024 9:15 AM EDT Office Visit Orthopedic Surgery [facility] [address] [phone] Perez Wilkins, GRICEL [address] [place] [address] Health Maintenance Due Date Last Done Comments [...] Unknown Historical Provider LAB BLOOD ORDERABLES Aileen sun Result from Last 3 Months or Most Recently Relevant to Health Maintenance Insurance [facility] Care Teams Licensed Physical Therapist Relationship Specialty Start Date End Date Laina Byrne MD PCP - General Internal Medicine 02/14/24
--- OUTSIDE RECORDS SUMMARY | 2024-10-25 09:04 | XMS_ITS | Clinical Summary ---
Author Organization [facility] Address [address] [place] [address] Phone Care Team Providers Care Animal Caregiver Name Role Phone Laina Byrne MD Primary [...] Vaccine (#1) 2024 04/14/2022, 2020 Care Teams Animal Caregiver Relationship Specialty Start Date End Date Laina Byrne MD [address] [place] [address] PCP - General Internal Medicine 06/02/22
== END 2024-10-25 09:49 | disposition home or self-care (01) ==
LOC: HO.HOS 08:42
PROVIDERS: PCP Internal Medicine; Visit Provider Physician Assistant
DX: S86.009A Unspecified injury of unspecified Achilles tendon, initial encounter (principal)
CPT/HCPCS: 99213; G2211

== ENCOUNTER → 2024-10-25 08:41 | Outpatient (BNVA) | payer OTHER, SELFPAY | PROVIDERS: PCP Internal Medicine; Visit Provider Physician Assistant | DX: S86.002D Unspecified injury of left Achilles tendon, subsequent encounter (principal) | CPT/HCPCS: 99212 ==

== ENCOUNTER 2024-11-10 09:41 | Outpatient (AMB) | payer OTHER, SELFPAY ==
[2024-11-10 09:43] VITALS: BP 118/62; PULSE 97; O2SAT 99; BMI 41.9
--- NOTE | 2024-11-10 09:43 | A.OFFVIS_ITS ---
Vital Signs 11/10/24 09:43 Height 6 ft Weight 308 lb 13.882 oz BMI 41.9 BP 118/62 Blood Pressure Location Rt brachial Position Sitting Pulse 97 Pulse Source Pulse Oximeter Pulse Oximetry (%) 99 Oxygen Delivery Method Room Air Intake Visit Reasons: T2DM Intake Note: Patient present today for Type 2 Diabetes Mellitus Last Diabetic eye exam: Last exam was on 11/07/24 Last Podiatry Visit: Last time seen was on 08/2024 Random Glucose: 148 mg/dl HgA1C: 6.9% Human Factors Advisor Lead Required: No Accompanied by: Self / Same As Patient Allergies Proventil Allergy (Mild, Uncoded 11/10/24 09:53) rash Medication List - Last Reconciled 11/10/24 by Celena De Santiago PA-C albuterol sulfate 90 mcg/actuation 2 puffs inhalation Q6H PRN amlodipine 10 mg PO DAILY atorvastatin 80 mg PO DAILY blood sugar diagnostic (FreeStyle Lite Strips) As directed tests 4X/day blood-glucose meter (FreeStyle Lite Meter kit) As directed checks 4 X/day blood-glucose sensor (FreeStyle Viky 3 Plus Sensor device) As directed cholecalciferol (vitamin D3) (Vitamin D3) 50 mcg PO DAILY 90 days insulin lispro 12 units (0.12 mL) subcut DAILY 30 days NS insulin needles (disposable) As directed Jardiance (empagliflozin) 25 mg PO DAILY 30 days NS lancets (FreeStyle Lancets) As directed chacks 4/day lisinopril 40 mg PO DAILY 30 days metformin ER 1,000 mg (2 x 500 mg) PO BID 90 days pen needle, diabetic (BD Ultra-Fine Micro Pen Needle) 1x daily pioglitazone 15 mg PO DAILY sertraline 50 mg PO DAILY tirzepatide (Mounjaro) 10 mg (0.5 mL) subcut QWEEK 28 days Tresiba FlexTouch U-100 (insulin degludec) 35 units (0.35 mL) subcut BEDTIME 30 days NS HPI HPI T2DM: Details: Patient is a 39-year-old male with a significant past medical history of hypertension, hyperlipidemia, type 2 diabetes, microalbuminuria, chronic kidney disease and obesity presenting today for a diabetic follow up. Previously following with my co-worker. Dm-last A1c is 6.9. He was dx around the age of 19. He is currently on metformin 1000 mg twice a day, Jardiance 25 mg, Actos 15 mg, Mounjaro 10 mg weekly, Tresiba 32 units daily, lispro 8 units'' -ozempic caused severe n/v, trulicity was ineffective cgm- usage 96%, G mi 6.6%, average glucose 137. Very hyperglycemic 1%, hyperglycemic 10%, 89% in range, hypoglycemia 0% Hyperglycemia- rare - only when treating low blood sugars Hypoglycemia- he is waking up overnight with lows Follows with Nephrology CV: Blood pressure today in the office is 118/62. He is on lisinopril 40 mg and amlodipine 10 mg daily. Cholesterol is managed with 80 mg PFSH Medical History Acute bacterial pharyngitis Anxiety Depression Insulin dependent diabetes mellitus type IA Morbid obesity Charcot arthropathy Obesity (BMI 30.0-34.9) Microalbuminuria Obesity Vitamin D deficiency HLD (hyperlipidemia) HTN (hypertension) T2DM (type 2 diabetes mellitus) Diabetes type 2, uncontrolled Surgical History H/O foot surgery Hx of eye surgery Hx of shoulder surgery Hx of circumcision Family History Father No problems noted. Mother Diabetes Social History Are you a primary caregiver assisted living to a significant other at home: No Do you presently have visiting nurse or other home services: No Alcohol intake: never Patient Tobacco Use Status: Never used Tobacco Current occupational status: unemployed Physical Exam Vital Signs: Last Vital Signs Pulse 97 11/10/24 09:43 BP 118/62 11/10/24 09:43 Pulse Ox 99 11/10/24 09:43 Oxygen Delivery Method Room Air 11/10/24 09:43 BMI result Body Mass Index 41.9 Const Orientation/consciousness: patient oriented x3 Neck Neck: Yes no lymphadenopathy Thyroid: Thyroid normal Carotids: no bruits Resp Auscultation: clear to auscultation bilaterally Cardio Rate: regular rate Rhythm: regular rhythm Heart sounds: S1 normal heart sound present and S2 normal heart sound present Peripheral pulses: dorsalis pedis present Neuro General: patient oriented x3, gait normal and no focal motor deficits Extrem Other: Monofilament sensation not present bilaterally. Vibratory sensation not present bilaterally. Skin intact. General: Yes normal to inspection Results AMB Hemoglobin A1c AMB Hemoglobin A1c 6.9 % Last Edit by [employer] on 11/10/24 10:04 Results Reviewed Results Reviewed: Laboratory Last Values Glucose (Clinic) 148 mg/dL (60-115) H 11/10/24 09:55 Laboratory Tests 06/20/24 08/11/24 10/02/24 11:17 10:57 10:01 Sodium 145 Potassium 4.8 Chloride 112 H Carbon Dioxide 27 Anion Gap 11 L BUN 37 H Creatinine 1.91 H Estimated GFR 40 Hgb A1c (Clinic) 8.8 H Triglycerides 133 Cholesterol 113 LDL Cholesterol, Calc 61 HDL Cholesterol 26 L Assessment & Plan Assessment & Plan (1) Diabetes type 2, uncontrolled: Code(s): E11.65 - Type 2 diabetes mellitus with hyperglycemia Category: Medical Qualifiers: Glycemic state: with hyperglycemia Qualified Code(s): E11.65 - Type 2 diabetes mellitus with hyperglycemia Plan: continue metformin 1000 mg twice a day continue jardiance 25 mg daily increase mounjaro to 12.5 mg weekly- will call if side effects stop actos 15 mg daily reduce tresiba to 30 units daily reduce lispro to 6 units with dinner (2) HTN (hypertension): Code(s): I10 - Essential (primary) hypertension Category: Medical Qualifiers: Hypertension type: unspecified Qualified Code(s): I10 - Essential (primary) hypertension Plan: WNL. Continue current regimen (3) HLD (hyperlipidemia): Code(s): E78.5 - Hyperlipidemia, unspecified Category: Medical Qualifiers: Hyperlipidemia type: unspecified Qualified Code(s): E78.5 - Hyperlipidemia, unspecified Plan: LDL at goal continue atorvastatin Plan continue metformin 1000 mg twice a day continue jardiance 25 mg daily increase mounjaro to 12.5 mg weekly- will call if side effects stop actos 15 mg daily reduce tresiba to 30 units daily reduce lispro to 6 units with dinner Orders: Orders AMB Hemoglobin A1c Today E11.65 - Type 2 diabetes mellitus with hyperglycemia, Z13.9 - Encounter for screening, unspecified Medications: New tirzepatide (Mounjaro) 12.5 mg (0.5 mL) subcut QWEEK 2 mL 5RF Changed From Tresiba FlexTouch U-100 (insulin degludec) 35 units (0.35 mL) subcut BEDTIME 30 days 12 mL 11RF NS E11.65 - Type 2 diabetes mellitus with hyperglycemia To Tresiba FlexTouch U-100 (insulin degludec) 30 units (0.3 mL) subcut BEDTIME 9 mL 11RF 30 days NS E11.65 - Type 2 diabetes mellitus with hyperglycemia From insulin lispro with supper 12 units (0.12 mL) subcut DAILY 30 days 6 mL 11RF NS To insulin lispro with supper 6 units (0.06 mL) subcut DAILY 15 mL 11RF 30 days NS Discontinued pioglitazone Discontinued Reason: Doctor's Order 15 mg PO DAILY 90 tabs 6RF .65 - Type 2 diabetes mellitus with hyperglycemia tirzepatide (Mounjaro) Discontinued Reason: Doctor's Order 10 mg (0.5 mL) subcut QWEEK 28 days 2 mL 11RF Coding Level of Care Code Est Pt Level 4 (74666) Complex EM visit Add On G2211 Diagnoses Uncontrolled type 2 diabetes mellitus with hyperglycemia E11 Glycemic state: with hyperglycemia Hypertension, unspecified type I10 Hypertension type: unspecified Hyperlipidemia, unspecified hyperlipidemia type E78.5 Hyperlipidemia type: unspecified
[2024-11-10 09:59] LABS: Glucose, Whole Blood 148 mg/dL (60-115)
--- OUTSIDE RECORDS SUMMARY | 2024-11-10 10:50 | XMS_ITS | Clinical Summary ---
Author Organization [facility] Address [address] [place] [address] Phone Care Team Providers Care Manager Of Hospital Name Role Phone Laina Byrne MD Primary [...] Vaccine (#1) 2024 04/14/2022, 2020 Care Teams Manager Of Hospital Relationship Specialty Start Date End Date Laina Byrne MD [address] [place] [address] PCP - General Internal Medicine 06/02/22
--- OUTSIDE RECORDS SUMMARY | 2024-11-10 10:50 | XMS_ITS | Clinical Summary ---
Author Organization [facility] Address [address] [place] [address] Phone Care Team Providers Care Client Support Representative Name Role Phone Laina Byrne MD [...] LEVEL 01/14/2020 01/13/2019 SCREENING FOR DIABETES 2021 INFLUENZA VACCINE (#1) 2024 COVID-19 VACCINE (3 - 2024-2 6 season) 2024 04/19/2020, 03/22/2020 SMOKING STATUS SCREENING (On ce [...] AM EDT) HCV NON-REACTIV E NON-REACTI VE [facility] Blood 09/21/2023 10:4 1 AM EDT 09/21/2023 10:43 AM EDT us Geo Lyon MD LAB BLOOD ORDERABLES Final Resu lt Performing Organization Address [place]/[facility]/ZIP Co de Phone Number [address] [address] * (ABNORMAL) Basic metabolic panel (01/13/2019 10:37 AM EST) SODIUM 136 133 - 146 mmol/L [facility] CHLORIDE 99 96 - 108 mmol/L [facility] POTASSIUM 4.7 3.3 - 5.1 mmol/L [facility] CO2 23 21 - 35 mmol/L [facility] BUN 20(H) 6 - 19 mg/dL [facility] CREATININE 0.80 0.5 - 1.5 mg/dL [facility] GLUCOSE 174(H) 70 - 99 mg/dL [facility] CALCIUM 9.5 8.4 - 10.3 mg/dL [facility] EGFR 118 >59 mL/min/1.7 3m2 [facility] Comment:If patient is black, multiply result by 1.159. Estimated glomerular filtration rate calculated using the CKD-EPI equation. ANION GAP 19 10 - 20 mmol/L [facility] Blood 01/13/2019 10:3 7 AM EST 01/13/2019 10:54 AM EST us Mart TORRES LAB BLOOD ORDERABLES Final Resul t Performing Organization Address [place]/[facility] Co de Phone Number [address] [address] from Last 3 Months or Most Recently Relevant to Health Maintenance Insurance [facility] Warm Health [facility] DIRECT CONNECTORCARE DIRECT [employer] DIRECT CONNECTORCARE DIRECT [facility] CONNECTORCARE DIRECT [address] [place] [address] [employer] DIRECT Care Teams Client Support Representative Relationship Specialty Start Date End Date Laina Byrne MD [address] [address] PCP - General Internal Medicine 01/13/19 Additional Source Comments The information contained in this document represents components of the legal health record. It is not the complete legal health record.[facility]
--- OUTSIDE RECORDS SUMMARY | 2024-11-10 10:50 | XMS_ITS | Clinical Summary ---
Author Organization 175 [facility] Address [address] [place] [address] Phone Care Team Providers Care Spouter Name Role Phone Laina Byrne MD Primary [...] AM EDT Office Visit Orthopedic Surgery - [place] [phone] [phone] Perez Wilkins DPM [address] [address] Health Maintenance Due Date Last Done Comments [...] Most Recently Relevant to Health Maintenance Insurance [facility] PUBLIC PLANS Care Teams Spouter Relationship Specialty Start Date End Date Laina Byrne MD PCP - General Internal Medicine 02/14/24
== END 2024-11-10 10:39 | disposition home or self-care (01) ==
LOC: HO.ENCR 09:41
PROVIDERS: PCP Internal Medicine; Visit Provider Physician Assistant
DX: E11.65 Type 2 diabetes mellitus with hyperglycemia (principal); I10 Essential (primary) hypertension; E78.5 Hyperlipidemia, unspecified; Z13.9 Encounter for screening, unspecified

== ENCOUNTER → 2024-11-10 09:41 | Outpatient (BNVA) | payer OTHER, SELFPAY | PROVIDERS: PCP Internal Medicine; Visit Provider Physician Assistant | DX: E11.65 Type 2 diabetes mellitus with hyperglycemia (principal); E78.5 Hyperlipidemia, unspecified; I10 Essential (primary) hypertension; Z79.84 Long term (current) use of oral hypoglycemic drugs | CPT/HCPCS: 82947; 83036; 99212 ==

== ENCOUNTER 2024-12-22 12:14 | Outpatient (REF) | payer OTHER, SELFPAY ==
[2024-12-22 14:07] LABS: Anion Gap 11 (12-20); Blood Urea Nitrogen 36 mg/dL (9-16); Calcium 8.4 mg/dL (8.4-10.2); Carbon Dioxide 24 mmol/L (22-29); Chloride 113 mmol/L (96-108); Estimated Glomerular Filt Rate 38; Potassium 4.9 mmol/L (3.3-5.1); Sodium 143 mmol/L (135-145)
--- OUTSIDE RECORDS SUMMARY | 2024-12-22 14:20 | XMS_ITS | Clinical Summary ---
Author Organization [facility] Address [address] [place] [address] Phone Care Team Providers Care Mortgage Loan Interviewer Name Role Phone Laina Byrne MD Primary [...] AM EDT) HCV NON-REACTIV E NON-REACTI VE [facility] Blood 09/21/2023 10:4 1 AM EDT 09/21/2023 10:43 AM EDT us Geo Lyon MD LAB BLOOD ORDERABLES Final Resu lt Performing Organization Address [facility]/ZIP Co de Phone Number [address] [address] * (ABNORMAL) Basic metabolic panel (01/13/2019 10:37 AM EST) SODIUM 136 133 - 146 mmol/L [facility] CHLORIDE 99 96 - 108 mmol/L [facility] POTASSIUM 4.7 3.3 - 5.1 mmol/L [facility] CO2 23 21 - 35 mmol/L [facility] BUN 20(H) 6 - 19 mg/dL [facility] CREATININE 0.80 0.5 - 1.5 mg/dL [facility] GLUCOSE 174(H) 70 - 99 mg/dL [facility] CALCIUM 9.5 8.4 - 10.3 mg/dL [facility] EGFR 118 >59 mL/min/1.7 3m2 [facility] Comment:If patient is black, multiply result by 1.159. Estimated glomerular filtration rate calculated using the CKD-EPI equation. ANION GAP 19 10 - 20 mmol/L [facility] Blood 01/13/2019 10:3 7 AM EST 01/13/2019 10:54 AM EST us Mart TORRES LAB BLOOD ORDERABLES Final Resul t Performing Organization Address [facility] Co de Phone Number [address] [address] from Last 3 Months or Most Recently Relevant to Health Maintenance Insurance [facility] [employer] [facility] DIRECT CONNECTORCARE DIRECT CONNECTORCARE DIRECT CONNECTORCARE DIRECT [facility] CONNECTORCARE [place] [address] [place] [address] CONNECTORCARE DIRECT Care Teams Mortgage Loan Interviewer Relationship Specialty Start Date End Date Laina Byrne MD [address] [address] PCP - General Internal Medicine 01/13/19 Additional Source Comments The information contained in this document represents components of the legal health record. It is not the complete legal health record.[facility]
--- OUTSIDE RECORDS SUMMARY | 2024-12-22 14:20 | XMS_ITS | Clinical Summary ---
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
--- OUTSIDE RECORDS SUMMARY | 2024-12-22 14:20 | XMS_ITS | Clinical Summary ---
Author Organization 175 [facility] Address [address] [place] [address] Phone Care Team Providers Care Media Law Faculty Member Name Role Phone Laina Byrne MD Primary Care Provider Allergies Active Allergy Reactions Criticality Noted Date Comments Albuterol 05/02/2024 Medications No known medications Encounters Date Type Department Care Team Description 11/16/2024 9:15 AM EDT Office Visit Orthopedic [address] [phone] Perez Wilkins DPM Controlled type 2 diabetes with neuropathy (CMS/HCC V24, CMS/HCC V28) (Primary Dx); Charcot's joint, unspecified site; Arthritis of both feet; Dermatophytosis, nail from Last [...] Care Team (Late st Contact Info) Description 01/03/2025 8:30 AM EST Office Visit Orthopedic [facility] [address] [phone] Perez Wilkins DPM [address] [address] 05/16/2025 11:00 AM EDT Office Visit Orthopedic Surgery - [place] [address] [phone] Perez Wilkins, DPM [address] [address] Health Maintenance Due Date Last Done Comments Diabetes: Annual Foot Exam 1996 Diabetes: Annual Retina Eye Exam 1996 Hepatitis B Vaccines (3 of 3 - 3-dose series) 01/01/2000 11/06/1999, 08/03/1997 Diabetes: Annual GFR (Glomerular Filtration Rate) 03/07/2005 03/07/2004 HPV Vaccines (1 - 3-dose SCDM series) 2013 Cholesterol Screening (Lipid Panel) 12/13/2023 03/07/2004 HIV Screening 12/13/2023 Social Influencers of Health Screening 12/13/2023 Depression Screening 03/01/2024 Influenza Vaccine (#1) 2024 , 10/17/2022, 04/14/2022, Additional history exists Diabetes: Annual Urine Albumin-Creatinine Ratio (uACR) 11/16/2024 07/08/2022 Diabetes: Blood Sugar Control Test (HGBA1C) 11/16/2024 03/07/2004 Hypertension/CHF/CAD Annual BMP Blood Test 11/16/2024 03/07/2004 DTaP,Tdap,and Td Vaccines (8 - Td or Tdap) 05/25/2032 05/25/2022, 11/06/1999, 07/04/1992, Additional history exists RSV Immunization Adult Patients (1 - 1-dose 75+ series) 2061 IPV Vaccines Completed 01/03/1990, 06/29, 04/25/1987, Additional history exists HIB Vaccines Completed 07/29/1997, 04/1988, 12/29/1987 MMR Vaccines Completed 08/03/1997, 05/30, 12/17/1987 Pneumococcal Vaccine: Pediatrics (0 to 5 Years) and At-Risk Patients (6 to 49 Years) Completed 05/25/2022 Hepatitis C Screening Completed 09/21/2023, 023 COVID-19 Vaccine Completed 12/25/2023, , 04/08/2022, Additional history exists Hepatitis A Vaccines Aged Out No long [...] Results * Annual BMP Blood Test (03/07/2004) Pathologist [facility] Annual BMP Blood Test abstracted Result [facility] Provider HEALTH MAINTENANCE Final Result * Hemoglobin A1c (03/07/2004) Pathologist [facility] Hemoglobin A1C 5.4 4.0 - 6.0 % Blood Venous blood specimen / Unknown Result [facility] Provider LAB BLOOD ORDERABLES Aileen l Result * (ABNORMAL) Lipid panel (03/07/2004) Pathologist [facility] LDL/HDL Ratio 4 <=5 Triglycerides 71 <=150 mg/dL Cholesterol 165 <=200 mg/dL HDL 38(A) >=40 mg/dL LDL Cholesterol 113(A) <=100 mg/dL Blood Venous blood specimen / Unknown Result [facility] Provider LAB BLOOD ORDERABLES Aileen l Result from Last 3 Months or Most Recently Relevant to Health Maintenance Insurance MEDICAID - [place] Care Teams Media Law Faculty Member Relationship Specialty Start Date End Date Laina Byrne MD [address] [place] [address] PCP - General Internal Medicine 02/14/24
== END 2024-12-22 12:15 | disposition home or self-care (01) ==
LOC: HO.10HDL 12:14
PROVIDERS: Visit Provider Internal Medicine Hypertension Specialist
DX: N18.9 Chronic kidney disease, unspecified (principal)
CPT/HCPCS: 36415; 80048

== ENCOUNTER 2024-12-25 10:01 | Outpatient (AMB) | payer OTHER, SELFPAY ==
[2024-12-25 10:02] VITALS: BP 126/74; PULSE 100; O2SAT 99; BMI 41.8
--- NOTE | 2024-12-25 10:02 | HO.NEPHOV ---
Vital Signs 12/25/24 10:02 Height 6 ft Weight 308 lb BMI 41.8 BP 126/74 Blood Pressure Location Lt brachial Position Sitting Pulse 100 Pulse Source Pulse Oximeter Pulse Oximetry (%) 99 Oxygen Delivery Method Room Air Intake Visit Reasons: BRITTNEY, thien. Intelligence Applications Required: No Accompanied by: Self / Same As Patient Allergies Proventil Allergy (Mild, Uncoded 11/10/24 09:53) rash Medication List - Last Reconciled 12/25/24 by Kevin Bolanos MD albuterol sulfate 90 mcg/actuation 2 puffs inhalation Q6H PRN amlodipine 10 mg PO DAILY atorvastatin 80 mg PO DAILY blood sugar diagnostic (FreeStyle Lite Strips) As directed tests 4X/day blood-glucose meter (FreeStyle Lite Meter kit) As directed checks 4 X/day blood-glucose sensor (FreeStyle Viky 3 Plus Sensor device) As directed cholecalciferol (vitamin D3) (Vitamin D3) 50 mcg PO DAILY 90 days insulin lispro 6 units (0.06 mL) subcut DAILY 30 days NS insulin needles (disposable) As directed Jardiance (empagliflozin) 25 mg PO DAILY 30 days NS lancets (FreeStyle Lancets) As directed chacks 4/day lisinopril 40 mg PO DAILY 30 days metformin ER 1,000 mg (2 x 500 mg) PO BID 90 days pen needle, diabetic (BD Ultra-Fine Micro Pen Needle) 1x daily sertraline 50 mg PO DAILY tirzepatide (Mounjaro) 12.5 mg (0.5 mL) subcut QWEEK Tresiba FlexTouch U-100 (insulin degludec) 30 units (0.3 mL) subcut BEDTIME 30 days NS HPI Comments Details: Sean is a pleasant 38-year-old man with a history of longstanding diabetes mellitus and hypertension who has been referred for evaluation of proteinuria. He has a history of obesity and hyperlipidemia as well. Recent serum creatinine was 1.32 mg/dL. He had about 2.4 g of proteinuria based on the protein creatinine ratio. He is currently on lisinopril as well as SGLT2 inhibitors. 01/31/24;Ran out of Jardiance and Lisinopril 40 mg QD for 2 weeks 03/14/24;Lost 5 lbs;on wt management program. Waiting for bariatric surgery Off the weight management program Injury to left leg and has a cast 12/25/24 - The patient is a 39-year-old male presenting with diabetes mellitus, hypertension, and chronic kidney disease. - Diabetes Mellitus: Blood sugar levels controlled with insulin adjustments. - Hypertension: Stable blood pressure with lisinopril and Jardiance. - Chronic Kidney Disease: Stable kidney function, no deterioration over the past year. - Medication adherence noted, insulin dosage adjusted, Mounjaro increased to 12.5 mg weekly. - Limited physical activity outside work, on feet for seven hours daily. [facility] Medical History Acute bacterial pharyngitis Anxiety Depression Insulin dependent diabetes mellitus type IA Morbid obesity Charcot arthropathy Obesity (BMI 30.0-34.9) Microalbuminuria Obesity Vitamin D deficiency HLD (hyperlipidemia) HTN (hypertension) T2DM (type 2 diabetes mellitus) Diabetes type 2, uncontrolled Surgical History H/O foot surgery Hx of eye surgery Hx of shoulder surgery Hx of circumcision Family History Father No problems noted. Mother Diabetes Social History Are you a primary manager intensive care to a significant other at home: No Do you presently have visiting nurse or other home services: No Alcohol intake: never Patient Tobacco Use Status: Never used Tobacco Current occupational status: unemployed Physical Exam Vital Signs: Last Vital Signs Pulse 100 12/25/24 10:02 BP 126/74 12/25/24 10:02 Pulse Ox 99 12/25/24 10:02 Oxygen Delivery Method Room Air 12/25/24 10:02 BMI result Body Mass Index 41.8 Comfortable Neck supple no JVD. Lungs entry equal no rales. Heart S1-S2 heard no gallop or rub. Abdomen soft nontender. Neuro alert awake oriented. No asterixis. Extremities no edema. Results Reviewed Nephrology Results: Hgb, (14.0-18.0) 11.2 g/dl L 10/02/24 WBC, (4.8-10.8) 12.6 X10*3/uL H 10/02/24 Plt Count, (160-400) 260 X10*3/uL 10/02/24 Sodium, (135-145) 143 mmol/L 12/22/24 Potassium, (3.3-5.1) 4.9 mmol/L 12/22/24 Chloride, (96-108) 113 mmol/L H 12/22/24 Carbon Dioxide, (22-29) 24 mmol/L 12/22/24 BUN, (9-16) 36 mg/dL H 12/22/24 Creatinine, (0.5-1.4) 1.96 mg/dL H 12/22/24 Calcium, (8.4-10.2) 8.4 mg/dL 12/22/24 Renal US 01/13/24 Assessment & Plan Assessment & Plan (1) T2DM (type 2 diabetes mellitus): Code(s): E11.9 - Type 2 diabetes mellitus without complications Category: Medical Qualifiers: Diabetes mellitus complication status: with hyperglycemia Diabetes mellitus half-way insulin use: without half-way use Qualified Code(s): E11.65 - Type 2 diabetes mellitus with hyperglycemia (2) HTN (hypertension): Code(s): I10 - Essential (primary) hypertension Category: Medical Qualifiers: Hypertension type: unspecified Qualified Code(s): I10 - Essential (primary) hypertension (3) CKD (chronic kidney disease): Code(s): N18.9 - Chronic kidney disease, unspecified Category: Medical Plan Sean is a 39-year-old man with a history of longstanding hypertension diabetes mellitus and obesity who has mild CKD with nephrotic range proteinuria. He probably has underlying diabetic nephropathy. Non diabetic causes seem unlikely at this point He had mild CKD probably CKD stage 2 with a serum creatinine of 1.32. in May 2023 Repeat cr was 1.8 in Nov 2023 Recent renal ultrasonogram was unremarkable and there was no obstruction. Serological workup was unremarkable Continue to hold Chlorthalidone Creatinine stable at 1.7 Goal is to slow the progression of renal disease. Maintain A1c less than 7% Maintain blood pressure less than 130/80 Continue to avoid nephrotoxic agents including NSAIDs. Discussed importance of weight loss. Agree with both LEVI inhibitors and SGLT2 inhibitors for cardiorenal protection. Encouraged him to stay on low-sodium diet. He had mild anemia in the past. Hemoglobin still remains low but stable ,with low MCV iron and TIBC ferritin were normal Orders: Orders Total Protein Urine Random 5 Months N18.9 - Chronic kidney disease, unspecified Basic Metabolic Panel 5 Months N18.9 - Chronic kidney disease, unspecified Creatinine Urine 5 Months N18.9 - Chronic kidney disease, unspecified Coding Level of Care Code Est Pt Level 4 (25598) Diagnoses Type 2 diabetes mellitus with hyperglycemia, without long-term current use of insulin E11.65 Diabetes mellitus complication status: with hyperglycemia Diabetes mellitus terminal superintendent insulin use: without half-way use Hypertension, unspecified type I10 Hypertension type: unspecified CKD (chronic kidney disease) N18.9
--- OUTSIDE RECORDS SUMMARY | 2024-12-25 11:52 | XMS_ITS | Clinical Summary ---
Author Organization 175 [facility] Address [address] [place] [address] Phone Care Team Providers Care Warehouse Shipping Receiving Clerk Name Role Phone Laina Byrne MD Primary Care Provider Allergies Active Allergy Reactions Criticality Noted Date Comments Albuterol 05/02/2024 Medications No known medications Encounters Date Type Department Care Team Description 11/16/2024 9:15 AM EDT Office Visit Orthopedic [address] [phone] Perez Wilkins DPM Controlled type 2 diabetes [...] 01/03/2025 8:30 AM EST Office Visit Orthopedic [facility] [address] [phone] Perez Wilkins DPM [address] [address] 05/16/2025 11:00 AM EDT Office Visit Orthopedic Surgery - [place] [address] [phone] Perez Wilkins, DPM [address] [address] Health Maintenance Due Date Last Done Comments [...] * Annual BMP Blood Test (03/07/2004) Pathologist [facility] Annual BMP Blood Test abstracted Result [facility] Provider HEALTH MAINTENANCE Final Result * Hemoglobin A1c (03/07/2004) Pathologist [facility] Hemoglobin A1C 5.4 4.0 - 6.0 % Blood Venous blood specimen / Unknown Result [facility] Provider LAB BLOOD ORDERABLES Aileen l Result * (ABNORMAL) Lipid panel (03/07/2004) Pathologist [facility] LDL/HDL Ratio 4 <=5 Triglycerides 71 <=150 mg/dL Cholesterol 165 <=200 mg/dL HDL 38(A) >=40 mg/dL LDL Cholesterol 113(A) <=100 mg/dL Blood Venous blood specimen / Unknown Result [facility] Provider LAB BLOOD ORDERABLES Aileen l Result from Last 3 Months or Most Recently Relevant to Health Maintenance Insurance MEDICAID - [place] Care Teams Warehouse Shipping Receiving Clerk Relationship Specialty Start Date End Date Laina Byrne MD [address] [place] [address] PCP - General Internal Medicine 02/14/24
--- OUTSIDE RECORDS SUMMARY | 2024-12-25 11:52 | XMS_ITS | Clinical Summary ---
Author Organization [facility] Address [address] [place] [address] Phone Care Team Providers Care Harvester Operator Name Role Phone Laina Byrne MD [...] Vaccine (#1) 2024 04/14/2022, 2020 Care Teams Harvester Operator Relationship Specialty Start Date End Date Laina Byrne MD [address] [place] [address] PCP - General Internal Medicine 06/02/22
--- OUTSIDE RECORDS SUMMARY | 2024-12-25 11:52 | XMS_ITS | Clinical Summary ---
Author Organization [facility] Address [address] [place] [address] Phone Care Team Providers Care Cad Intern Name Role Phone Laina Byrne MD Primary [...] AM EDT) HCV NON-REACTIV E NON-REACTI VE [facility] Blood 09/21/2023 10:4 1 AM EDT 09/21/2023 10:43 AM EDT us Geo Lyon MD LAB BLOOD ORDERABLES Final Resu lt Performing Organization Address [facility]/ZIP Co de Phone Number [address] [address] * (ABNORMAL) Basic metabolic panel (01/13/2019 10:37 AM EST) SODIUM 136 133 - 146 mmol/L [facility] CHLORIDE 99 96 - 108 mmol/L [facility] POTASSIUM 4.7 3.3 - 5.1 mmol/L [facility] CO2 23 21 - 35 mmol/L [facility] BUN 20(H) 6 - 19 mg/dL [facility] CREATININE 0.80 0.5 - 1.5 mg/dL [facility] GLUCOSE 174(H) 70 - 99 mg/dL [facility] CALCIUM 9.5 8.4 - 10.3 mg/dL [facility] EGFR 118 >59 mL/min/1.7 3m2 [facility] Comment:If patient is black, multiply result by 1.159. Estimated glomerular filtration rate calculated using the CKD-EPI equation. ANION GAP 19 10 - 20 mmol/L [facility] Blood 01/13/2019 10:3 7 AM EST 01/13/2019 10:54 AM EST us Mart TORRES LAB BLOOD ORDERABLES Final Resul t Performing Organization Address [facility] [[email or web address]] Co de Phone Number [address] [address] from Last 3 Months or Most Recently Relevant to Health Maintenance Insurance [facility] [employer] [facility] DIRECT CONNECTORCARE DIRECT CONNECTORCARE DIRECT CONNECTORCARE DIRECT [facility] CONNECTORCARE [place] [address] CONNECTORCARE DIRECT Care Teams Cad Intern Relationship Specialty Start Date End Date Laina Byrne MD [address] [address] PCP - General Internal Medicine 01/13/19 Additional Source Comments The information contained in this document represents components of the legal health record. It is not the complete legal health record.[facility]
== END 2024-12-25 10:21 | disposition home or self-care (01) ==
LOC: HO.HKA 10:02
PROVIDERS: PCP Internal Medicine; Visit Provider Internal Medicine Hypertension Specialist
DX: E11.65 Type 2 diabetes mellitus with hyperglycemia (principal); I12.9 Hypertensive chronic kidney disease with stage 1 through stage 4 chronic kidney disease, or unspecified chronic kidney disease; N18.9 Chronic kidney disease, unspecified
CPT/HCPCS: 99214

== ENCOUNTER → 2024-12-25 10:01 | Outpatient (BNVA) | payer OTHER, SELFPAY | PROVIDERS: PCP Internal Medicine; Visit Provider Internal Medicine Hypertension Specialist | DX: E11.65 Type 2 diabetes mellitus with hyperglycemia (principal); I10 Essential (primary) hypertension; E66.9 Obesity, unspecified; N18.2 Chronic kidney disease, stage 2 (mild); R80.9 Proteinuria, unspecified | CPT/HCPCS: 99212 ==

== ENCOUNTER 2025-02-09 10:52 | Outpatient (AMB) | payer OTHER, SELFPAY ==
--- NOTE | 2025-02-09 11:00 | A.OFFVIS_ITS ---
Vital Signs 02/09/25 11:01 Weight 293 lb 9.985 oz BP 116/82 Blood Pressure Location Rt brachial Position Sitting Pulse 84 Pulse Source Pulse Oximeter Pulse Oximetry (%) 99 Oxygen Delivery Method Room Air Intake Visit Reasons: dm Intake Note: Patient presents today for a follow-up on Type 2 Diabetes Mellitus: Last Diabetic eye exam: Last exam was on 11/07/24 Last Podiatry Visit: Last time seen was on 08/2024 Most recent HbA1c: 6.3%, 02/09/2025 Random Glucose- 103 mg/dL, Today Nurse Staff [facility] Required: No Accompanied by: Significant Other Allergies Proventil Allergy (Mild, Uncoded 02/09/25 11:09) rash Medication List - Last Reconciled 02/09/25 by Celena De Santiago PA-C albuterol sulfate 90 mcg/actuation 2 puffs inhalation Q6H PRN amlodipine 10 mg PO DAILY atorvastatin 80 mg PO DAILY blood sugar diagnostic (FreeStyle Lite Strips) As directed tests 4X/day blood-glucose meter (FreeStyle Lite Meter kit) As directed checks 4 X/day blood-glucose sensor (FreeStyle Viky 3 Plus Sensor device) As directed cholecalciferol (vitamin D3) (Vitamin D3) 50 mcg PO DAILY 90 days insulin needles (disposable) As directed Jardiance (empagliflozin) 25 mg PO DAILY 30 days NS lancets (FreeStyle Lancets) As directed chacks 4/day lisinopril 40 mg PO DAILY 30 days metformin ER 1,000 mg (2 x 500 mg) PO BID 90 days pen needle, diabetic (BD Ultra-Fine Micro Pen Needle) 1x daily sertraline 50 mg PO DAILY tirzepatide (Mounjaro) 12.5 mg (0.5 mL) subcut QWEEK Tresiba FlexTouch U-100 (insulin degludec) 10 units (0.1 mL) subcut BEDTIME 30 days NS HPI HPI dm: Details: Patient is a 39-year-old male with a significant past medical history of hypertension, hyperlipidemia, type 2 diabetes, microalbuminuria, chronic kidney disease and obesity presenting today for a diabetic follow up. Dm-last A1c was 6.9. He was dx around the age of 19. He is currently on metformin 1000 mg twice a day, Jardiance 25 mg, Mounjaro 12.5 mg weekly, Tresiba 30 units daily, lispro 6 units -off of lispro for a couple weeks due to low glucose readings. He is taking tresiba every other day due to low glucose readings. -ozempic caused severe n/v, trulicity was ineffective cgm- usage 96%, G mi 6.4%, average glucose 121. Very hyperglycemic 0%, hyperglycemic 10%, 90% in range, hypoglycemia 0% Hyperglycemia- rare - only when treating low blood sugars Hypoglycemia- he is waking up overnight with lows Follows with Nephrology CV: Blood pressure today in the office is 116/82. He is on lisinopril 40 mg and amlodipine 10 mg daily. Cholesterol is managed with 80 mg PFSH Medical History Acute bacterial pharyngitis Anxiety Depression Insulin dependent diabetes mellitus type IA Morbid obesity Charcot arthropathy Obesity (BMI 30.0-34.9) Microalbuminuria Obesity Vitamin D deficiency HLD (hyperlipidemia) HTN (hypertension) T2DM (type 2 diabetes mellitus) Diabetes type 2, uncontrolled Surgical History H/O foot surgery Hx of eye surgery Hx of shoulder surgery Hx of circumcision Family History Father No problems noted. Mother Diabetes Social History Are you a primary child care giver to a significant other at home: No Do you presently have visiting nurse or other home services: No Alcohol intake: never Patient Tobacco Use Status: Never used Tobacco Current occupational status: unemployed Results AMB Hemoglobin A1c AMB Hemoglobin A1c 6.3 % Last Edit by GREGG Layne on 02/09/25 11:14 Results Reviewed Results Reviewed: Laboratory Tests 0610/02/24 11/10/24 10:57 10:01 09:58 Creatinine 1.91 H Estimated GFR 40 Random Glucose Hgb A1c (Clinic) 6.9 H Triglycerides 133 Cholesterol 113 LDL Cholesterol, Calc 61 HDL Cholesterol 26 L 12/22/24 12:20 Creatinine 1.96 H Estimated GFR 38 Random Glucose 80 Hgb A1c (Clinic) Triglycerides Cholesterol LDL Cholesterol, Calc HDL Cholesterol Assessment & Plan Assessment & Plan (1) Diabetes type 2, uncontrolled: Code(s): E11.65 - Type 2 diabetes mellitus with hyperglycemia Category: Medical Qualifiers: Glycemic state: with hyperglycemia Qualified Code(s): E11.65 - Type 2 diabetes mellitus with hyperglycemia Plan: continue metformin 1000 mg twice a day continue jardiance 25 mg daily continue mounjaro to 12.5 mg weekly reduce tresiba to 10 units daily will call me if still developing any lows f.u in 3 months or sooner prn (2) HTN (hypertension): Code(s): I10 - Essential (primary) hypertension Category: Medical Qualifiers: Hypertension type: unspecified Qualified Code(s): I10 - Essential (primary) hypertension Plan: WNL. Continue current regimen Orders: Orders AMB Hemoglobin A1c Today E11.65 - Type 2 diabetes mellitus with hyperglycemia Medications: Changed From Tresiba FlexTouch U-100 (insulin degludec) 30 units (0.3 mL) subcut BEDTIME 30 days 9 mL 11RF NS E11.65 - Type 2 diabetes mellitus with hyperglycemia To Tresiba FlexTouch U-100 (insulin degludec) 10 units (0.1 mL) subcut BEDTIME 3 mL 11RF 30 days NS E11.65 - Type 2 diabetes mellitus with hyperglycemia Discontinued insulin lispro with supper Discontinued Reason: Doctor's Order 6 units (0.06 mL) subcut DAILY 30 days 15 mL 11RF NS Coding Level of Care Code Est Pt Level 4 (59113) Add On Problem Visit Only Diagnoses Uncontrolled type 2 diabetes mellitus with hyperglycemia E11.65 Glycemic state: with hyperglycemia Hypertension, unspecified type I10 Hypertension type: unspecified
[2025-02-09 11:01] VITALS: BP 116/82; PULSE 84; O2SAT 99
[2025-02-09 11:11] LABS: Glucose, Whole Blood 103 mg/dL (60-115)
== END 2025-02-09 11:27 | disposition home or self-care (01) ==
LOC: HO.ENCR 10:52
PROVIDERS: PCP Internal Medicine; Visit Provider Physician Assistant
DX: E11.65 Type 2 diabetes mellitus with hyperglycemia (principal); I10 Essential (primary) hypertension

== ENCOUNTER → 2025-02-09 10:52 | Outpatient (BNVA) | payer OTHER, SELFPAY | PROVIDERS: PCP Internal Medicine; Visit Provider Physician Assistant | DX: E11.22 Type 2 diabetes mellitus with diabetic chronic kidney disease (principal); E11.65 Type 2 diabetes mellitus with hyperglycemia; I12.9 Hypertensive chronic kidney disease with stage 1 through stage 4 chronic kidney disease, or unspecified chronic kidney disease; N18.9 Chronic kidney disease, unspecified; Z79.85 Long-term (current) use of injectable non-insulin antidiabetic drugs; Z79.4 Long term (current) use of insulin | CPT/HCPCS: 82947; 83036; 99212 ==